=== PATIENT | male | born 1940 | race Caucasian/White ===

== ENCOUNTER 2016-09-27 10:42 | Emergency (ER) | payer OTHER, MEDICARE ==
[~2016-09-27] VITALS: Ht 167.6 cm; Wt 80.0 kg
[~2016-09-27 10:42] MED LIST: ASPI81CH CHEW; ATEN50TA PO; DILA100C PO; NAPR250T57 PO; SOMA250T PO; TEGR100T PO; VITA10003 PO
[2016-09-27 10:44] VITALS: BP 176/88; PULSE 48; RESP 12; TEMP 97.3; O2SAT 100
== END 2016-09-27 13:45 | disposition left against medical advice (07) ==
LOC: NED 10:42
DX: L53.9 Erythematous condition, unspecified (principal); R22.31 Localized swelling, mass and lump, right upper limb; Z98.890 Other specified postprocedural states; Z53.21 Procedure and treatment not carried out due to patient leaving prior to being seen by health care provider
CPT/HCPCS: 99281

== ENCOUNTER 2016-10-31 10:26 | Emergency (ER) | payer MEDICARE, OTHER ==
[~2016-10-31] VITALS: Ht 167.6 cm; Wt 84.0 kg
[2016-10-31 10:33] VITALS: BP 148/75; PULSE 47; RESP 18; TEMP 97.9; O2SAT 99
[2016-10-31 10:54] VITALS: BP 174/78; PULSE 50; RESP 20; O2SAT 99
--- NOTE | 2016-10-31 11:20 | PD ---
HPI Chief Complaint: Edema Time Seen by Provider: 11:00 Travel History International Travel<30 days: No Contact w/Intl Traveler<30days: No Traveled to known affect area: No History of Present Illness HPI Patient is a 76-year-old male who presents to emergency room with complaints of swelling to his left lower extremity. Patient reports that he went to a chiropractor on , reports that he was stretched out as he does have chronic low back pain. Patient reports that he did not have any manipulation to his low back performed. Reports that since , he has noticed increased swelling to his left lower extremity. Patient reports increase left- sided calf pain with radiation to his low back. Patient reports that he has been walking like his normal self, denies any incontinence of urine or stool or bowel. Reports concerns for possible DVT. Patient with no history of DVT or PE in the past. Patient with no complaints of shortness of breath or chest pain. Patient with no recent travels or trips. PFSH Past Medical History Diminished Hearing: Yes Hypertension: Yes Seizures: Yes Influenza Vaccination: No Past Surgical History Abdominal Surgery: Yes (HERNIA) Other Surgery: Yes (MAV) Social History Alcohol Use: Yes (WINE) Tobacco Use: No Substance Use: No Allergies-Medications (Allergen,Severity, Reaction): Coded Allergies: No Known Allergies (Unverified , 10/31/16) Reported Meds & Prescriptions Reported Meds & Active Scripts Active Reported Aspirin 81 Mg Chew 162 Mg CHEW DAILY Vitamin D-3 (Cholecalciferol) 1,000 Unit Tab 1,000 Units PO DAILY Atenolol 50 Mg Tab 40 Mg PO DAILY Tegretol-Xr 12 HR (Carbamazepine) 100 Mg Tab 3.75 Mg PO Q12HR Dilantin (Phenytoin Extended) 100 Mg Cap 100 Mg PO TID Review of Systems General / Constitutional: No: Fever Eyes: No: Visual changes HENT: No: Headaches Cardiovascular: No: Chest Pain or Discomfort Respiratory: No: Shortness of Breath Gastrointestinal: No: Abdominal Pain Genitourinary: No: Dysuria Musculoskeletal: Positive: Edema, Pain (low back pain) Skin: No Rash Neurologic: No: Weakness Psychiatric: No: Depression Endocrine: No: Polydipsia Hematologic/Lymphatic: No: Easy Bruising Physical Exam Narrative GENERAL: No acute distress, nontoxic SKIN: Warm and dry. HEAD: Atraumatic. Normocephalic. EYES: Pupils equal and round. No scleral icterus. No injection or drainage. ENT: No nasal bleeding or discharge. Mucous membranes pink and moist. NECK: Trachea midline. No JVD. CARDIOVASCULAR: Regular rate and rhythm. No murmur appreciated. RESPIRATORY: No accessory muscle use. Clear to auscultation. Breath sounds equal bilaterally. GASTROINTESTINAL: Abdomen soft, non-tender, nondistended. Hepatic and splenic margins not palpable. MUSCULOSKELETAL: No obvious deformities. No clubbing. No cyanosis. Patient with right-sided paraspinal tenderness, patient with left leg +1 edema, patient with left calf tenderness, patient with 30 elevation of left lower extremity. NEUROLOGICAL: Awake and alert. Motor grossly within normal limits. Normal speech. PSYCHIATRIC: Appropriate mood and affect; insight and judgment normal. Data Data Last Documented VS Vital Signs Date Time Temp Pulse Resp B/P Pulse Ox O2 Delivery O2 Flow Rate FiO2 10/31/16 10:54 50 20 174/78 99 Room Air 10/31/16 10:33 97.9 Orders Us Leg Venous Doppler (10/31/16 ) Spine, Lumbar - Ltd (Ap & Lat) (10/31/16 ) Basic Metabolic Panel (Bmp) (10/31/16 11:11) Complete Blood Count With Diff (10/31/16 11:11) Prothrombin Time / Inr (Pt) (10/31/16 11:11) Act Partial Throm Time (Ptt) (10/31/16 11:11) Iv Access Insert/Monitor (10/31/16 11:11) Ketorolac Inj (Toradol Inj) (10/31/16 12:15) Labs Laboratory Tests Test 10/31/16 11:30 White Blood Count 8.6 TH/MM3 Red Blood Count 4.33 MIL/MM3 Hemoglobin 10.6 GM/DL Hematocrit 34.2 % Mean Corpuscular Volume 78.9 FL Mean Corpuscular Hemoglobin 24.5 PG Mean Corpuscular Hemoglobin 31.0 % Concent Red Cell Distribution Width 15.1 % Platelet Count 253 TH/MM3 Mean Platelet Volume 6.8 FL Neutrophils (%) (Auto) 62.8 % Lymphocytes (%) (Auto) 26.6 % Monocytes (%) (Auto) 6.7 % Eosinophils (%) (Auto) 1.9 % Basophils (%) (Auto) 2.0 % Neutrophils # (Auto) 5.3 TH/MM3 Lymphocytes # (Auto) 2.3 TH/MM3 Monocytes # (Auto) 0.6 TH/MM3 Eosinophils # (Auto) 0.2 TH/MM3 Basophils # (Auto) 0.2 TH/MM3 CBC Comment AUTO DIFF Differential Comment AUTO DIFF CONFIRMED Prothrombin Time 11.7 SEC Prothromb Time International 1.1 RATIO Ratio Activated Partial 26.7 SEC Thromboplast Time Sodium Level 142 MEQ/L Potassium Level 5.0 MEQ/L Chloride Level 104 MEQ/L Carbon Dioxide Level 32.1 MEQ/L Anion Gap 6 MEQ/L Blood Urea Nitrogen 15 MG/DL Creatinine 0.72 MG/DL Estimat Glomerular Filtration 106 ML/MIN Rate Random Glucose 91 MG/DL Calcium Level 8.9 MG/DL MDM Medical Decision Making Medical Screen Exam Complete: Yes Emergency Medical Condition: Yes Interpretation(s) Vital Signs Date Time Temp Pulse Resp B/P Pulse Ox O2 Delivery O2 Flow Rate FiO2 10/31/16 10:54 50 20 174/78 99 Room Air 10/31/16 10:47 54 Room Air 10/31/16 10:33 97.9 47 18 148/75 99 Room Air Differential Diagnosis Sciatica, spinal stenosis, lumbar fracture, muscle strain, DVT, electrolyte abnormality Narrative Course Patient is a 76-year-old male who presents to emergency room with complaints of left lower leg swelling as well as right-sided low back pain. Patient reports that his symptoms began after he went to a chiropractor on , no HVLA was performed and only stretching was performed to his low back as he has chronic low pain. Ultrasound of the leg ordered to evaluate for possible DVT. X-ray of the low back ordered CBC & BMP Diagram 10/31/16 11:30 Last Impressions Lower Extremity Ultrasound 10/31/16 0000 Signed Impressions: Service Date/Time: Monday, October 31, 2016 11:44 - CONCLUSION: No evidence of deep venous thrombosis within the left lower extremity. Eitan Wagner MD X-ray of low back shows a grade 1 anterolisthesis of L4 in relation to L5. Degenerative changes throughout the lumbar spine. No acute compression fracture I did review all labs and all studies of patient in detail. Patient with no evidence of DVT at this time, no evidence of lumbar compression, he does have some degenerative changes throughout his lumbar spine. Copies of patient's studies were given to patient. Patient understands need for repeat ultrasound in 1 week if swelling and pain persists to his left lower extremity. Patient will follow-up with his primary care doctor and return to emergency room as needed. Diagnosis Primary Impression: Left leg swelling Additional Impressions: Anemia Qualified Code: D64.9 - Anemia, unspecified type Back pain Qualified Code: M54.41 - Chronic right-sided low back pain with right-sided sciatica Sciatica Qualified Code: M54.31 - Bilateral sciatica Patient Instructions: General Instructions Additional Instructions: Please give patient a copy of his lab work and test results at discharge Please follow up with your primary care doctor in 1-2 days Return to the emergency room if symptoms progress or worsen Please have your lower extremity ultrasound repeated in 1 week if swelling persists Return to the emergency room as needed Disposition: 01 DISCHARGE HOME Condition: Stable Beronica Montenegro DO Oct 31, 2016 11:20 Beronica Montenegro DO Oct 31, 2016 11:20
[2016-10-31 11:41] LABS: AUTOMATED NEUTROPHIL # 5.3 TH/MM3 (1.8-7.7); BASOPHIL # 0.2 TH/MM3 (0-0.2); EOSINOPHIL # 0.2 TH/MM3 (0-0.4); EOSINOPHIL % 1.9 % (0.0-4.0); HEMATOCRIT 34.2 % (39.0-51.0); LYMPH % 26.6 % (9.0-44.0); LYMPHOCYTE # 2.3 TH/MM3 (1.0-4.8); MEAN CELL VOLUME 78.9 FL (80.0-100.0); MEAN CORPUSCULAR HEMOGLOBIN 24.5 PG (27.0-34.0); MONO % 6.7 % (0.0-8.0); NEUT % 62.8 % (16.0-70.0); PLATELET COUNT 253 TH/MM3 (150-450); RED BLOOD COUNT 4.33 MIL/MM3 (4.50-5.90); RED CELL DISTRIBUTION WIDTH 15.1 % (11.6-17.2); WHITE BLOOD COUNT 8.6 TH/MM3 (4.0-11.0)
[2016-10-31 11:42] LABS: HEMO FLAGS AUTO DIFF
[2016-10-31 11:50] LABS: BICARBONATE 32.1 MEQ/L (21.0-32.0)
[2016-10-31 11:52] LABS: APTT (PATIENT) 26.7 SEC (24.3-30.1); INTERNATIONAL NORMALIZED RATIO 1.1 RATIO; PROTHROMBIN TIME - PATIENT 11.7 SEC (9.8-11.6)
--- NOTE | 2016-10-31 11:55 | RADHPO ---
EXAM DATE/TIME: 10/31/2016 11:14 [facility] COMPARISON: No previous studies available for comparison. INDICATIONS: Chronic back pain; left leg swelling and pain today. MEDICAL HISTORY: None. SURGICAL HISTORY: None. ENCOUNTER: Initial ACUITY: 1 year PAIN SCORE: 5/10 LOCATION: Lumbar spine. FINDINGS: Grade I anterolisthesis of L4 in relation to L5 is noted. Mild degenerative changes are noted throug hout the thoracic spine. There is no acute compression fracture. There is no evidence of pars defec ts. CONCLUSION: 1. Grade I anterolisthesis of L4 in relation to L5. 2. Degenerative changes throughout the lumbar spine. 3. No acute compression fracture. Eitan Wagner MD on October 31, 2016 at 11:40 Board Certified Radiologist. This report was verified electronically.
--- NOTE | 2016-10-31 12:01 | RADHPO ---
EXAM DATE/TIME: 10/31/2016 11:44 [facility] COMPARISON: No previous studies available for comparison. INDICATIONS : Left leg swelling. MEDICAL HISTORY : Hypertension. Seizures. SURGICAL HISTORY : Hernia repair. Right arm surgery. Left ankle surgery. ENCOUNTER: Initial ACUITY: 4 - 6 days PAIN SCORE: 9/10 LOCATION: Left leg. TECHNIQUE: Venous ultrasound of the leg was performed from the inguinal ligament to the proximal calf. Real-kb e, color Doppler and spectral tracing, compression and augmentation techniques were used. FINDINGS: There is normal compressibility of the deep venous system from the inguinal region to the proximal ca lf. No echogenic clot is seen in the lumen of the common femoral, femoral, popliteal, and posterior tibial veins. There is a normal response of the venous system to proximal and distal augmentation an d respiration. CONCLUSION: No evidence of deep venous thrombosis within the left lower extremity. Eitan Wagner MD on October 31, 2016 at 11:58 Board Certified Radiologist. This report was verified electronically.
[2016-10-31 12:13] LABS: SCAN/DIFF AUTO DIFF CONFIRMED
[2016-10-31] MEDS ORDERED: KETOROLAC TROMETHAMINE 30 MG/ML (IVP) VIAL IV PUSH ONE (12:15)
[2016-10-31 12:48] VITALS: BP 138/78
== END 2016-10-31 12:49 | disposition home or self-care (01) ==
LOC: PHED 10:26
DX: M79.89 Other specified soft tissue disorders (principal); D64.9 Anemia, unspecified; M54.40 Lumbago with sciatica, unspecified side; I10 Essential (primary) hypertension; G89.29 Other chronic pain
CPT/HCPCS: 72100; 80048; 85025; 85610; 85730; 93971

== ENCOUNTER 2017-05-18 14:21 | Emergency (ER) | payer OTHER ==
[~2017-05-18] VITALS: Ht 165.1 cm; Wt 80.0 kg
[~2017-05-18 14:21] MED LIST changes: -NAPR250T57 PO; -SOMA250T PO
[2017-05-18 14:27] VITALS: BP 166/74; PULSE 63; RESP 16; TEMP 98.6; O2SAT 99
[2017-05-18] MEDS ORDERED: CHOL1CAP6 PO (14:43)
[2017-05-18] MEDS ORDERED: TEGR100T PO (14:43)
--- NOTE | 2017-05-18 15:32 | RADRPT ---
EXAM DATE/TIME: 05/18/2017 15:16 [facility] COMPARISON: No previous studies available for comparison. INDICATIONS : Right foot, first digit pain with swelling. No known injury. MEDICAL HISTORY : Hypertension. Seizures SURGICAL HISTORY : Hernia repair. Right arm surgery. Left ankle surgery ENCOUNTER: Initial ACUITY: 1 day PAIN SCORE: 8/10 LOCATION: Right foot FINDINGS: Joint space narrowing, subchondral sclerosis and prominent osteophyte formation involving the first m etatarsophalangeal joint. No significant erosive change. Remaining joint spaces are maintained. [place] structures are intact. No significant soft tissue abnormality. Consultations of the dorsalis pedis artery. CONCLUSION: 1. 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 No erosive change to suggest infl ammatory arthropathy. Lloyd Kemp MD on May 18, 2017 at 15:28 Board Certified Radiologist. This report was verified electronically.
[2017-05-18] MEDS ORDERED: PRED50 PO (15:55)
[2017-05-18] MEDS ORDERED: INDO50CA PO (15:55)
--- NOTE | 2017-05-18 15:56 | PD ---
HPI . Right foot pain that started this morning Chief Complaint: Pain: Acute or Chronic Time Seen by Provider: 14:57 Travel History International Travel<30 days: No Contact w/Intl Traveler<30days: No Traveled to known affect area: No History of Present Illness HPI 76-year-old male patient presents to the emergency department for evaluation of right pain. Patient woke up this morning and had pain in his foot however it is slightly erythemic and mildly edematous now. Patient denies any fevers, shortness of breath, chest pain, nausea or vomiting, diarrhea, abdominal pain. Patient denies any injury or trauma occurring to the right foot. Patient does have a history of gout. The last episode of gout he had was in his left leg. Patient is ambulatory with a cane. Patient states it is difficult to walk due to the pain. The pain seems to be increasing quickly. Patient has full range of motion in bilateral lower extremities. The erythema in the right foot originates in the great toe and dissipates throughout the top portion of the foot. PFSH Past Medical History Diminished Hearing: Yes Hypertension: Yes Immunizations Current: No Seizures: Yes Tetanus Vaccination: < 5 Years Influenza Vaccination: No Past Surgical History Abdominal Surgery: Yes (HERNIA) Other Surgery: Yes (MAV) Social History Alcohol Use: Yes (WINE) Tobacco Use: No Substance Use: No Allergies-Medications (Allergen,Severity, Reaction): Coded Allergies: No Known Allergies (Unverified , 10/31/16) Reported Meds & Prescriptions Reported Meds & Active Scripts Active Reported Vitamin D-3 (Cholecalciferol) 1,000 Unit Cap 1 Tab PO DAILY Tegretol-Xr 12 HR (Carbamazepine) 100 Mg Tab 100 Mg PO HS Aspirin 81 Mg Chew 162 Mg CHEW DAILY Atenolol 50 Mg Tab 40 Mg PO DAILY Tegretol-Xr 12 HR (Carbamazepine) 100 Mg Tab 200 Mg PO DAILY Dilantin (Phenytoin Extended) 100 Mg Cap 100 Mg PO TID Review of Systems Except as stated in HPI: all other systems reviewed are Neg Physical Exam Narrative GENERAL: Well-nourished, well-developed 76-year-old male patient in no acute distress. Nontoxic appearing SKIN: Slight erythema noted to right great toe that dissipates through the dorsal aspect of the foot. Focused skin assessment warm/dry. HEAD: Normocephalic. Atraumatic EYES: No scleral icterus. No injection or drainage. NECK: Supple, trachea midline. No JVD or lymphadenopathy. CARDIOVASCULAR: Regular rate and rhythm without murmurs, gallops, or rubs. RESPIRATORY: Breath sounds equal bilaterally. No accessory muscle use. GASTROINTESTINAL: Abdomen soft, non-tender, nondistended. MUSCULOSKELETAL: Mild edema to right foot noted. No cyanosis. BACK: Nontender without obvious deformity. No CVA tenderness. Data Data Last Documented VS Vital Signs Date Time Temp Pulse Resp B/P (MAP) Pulse Ox O2 Delivery O2 Flow Rate FiO2 05/18/17 14:36 (104) 05/18/17 14:27 98.6 63 16 99 Room Air Orders Orders Foot, Complete ([id number]) (05/18/17 15:10) Ice/Cold Pack (05/18/17 15:10) [facility] Medical Decision Making Medical Screen Exam Complete: Yes Emergency Medical Condition: Yes Differential Diagnosis Differential diagnoses include but are not limited to osteoarthritis, rheumatoid arthritis, gout, foot contusion, cellulitis Narrative Course 76-year-old male presents to the emergency department for evaluation of right foot pain that started this morning when he woke up. There is erythema noted in the right great toe that dissipates through the dorsal aspect of the foot. The right foot is slightly edematous. Patient is ambulatory with a cane however states today the pain is difficult to ambulate. X-ray of the right foot ordered. X-ray of the right foot shows predominant osteoarthritis of the first metatarsophalangeal joint with no erosive changes to suggest inflammatory arthropathy. Based on patient's symptoms, clinical presentation, radiological results, vital sign review and physical exam it is not necessary to admit the patient to the hospital or keep the patient in the emergency department for further evaluation. Patient will be given a prescription for Indocin and discharged home with instructions to follow-up with his primary care. Diagnosis Primary Impression: Gout of right foot Qualified Codes: M10.9 - Gout, unspecified Referrals: Primary Care Physician Patient Instructions: General Instructions, Gout (ED) Additional Instructions: Please return to emergency department if your symptoms return or worsen. Follow up with your primary care provider. Take medications as prescribed. Med/Other Pt SpecificInfo: Prescription(s) given Scripts Indomethacin (Indomethacin) 50 Mg Cap 50 MG PO TID for 5 Days, CAP 0 Refills Take with food, milk, or antacids to decrease stomach adverse effects. Prov: Gabriela Maya 05/18/17 Disposition: 01 DISCHARGE HOME Condition: Stable Gabriela Maya May 18, 2017 15:56
== END 2017-05-18 16:07 | disposition home or self-care (01) ==
LOC: PHEFT 14:21
DX: M10.9 Gout, unspecified (principal); I10 Essential (primary) hypertension
CPT/HCPCS: 73630; 99283

== ENCOUNTER 2017-11-28 09:57 | Emergency (ER) | payer OTHER ==
[~2017-11-28] VITALS: Ht 167.6 cm; Wt 84.0 kg
[~2017-11-28 09:57] MED LIST changes: +ASPI-516 CHEW; -ASPI81CH CHEW; +D31000CA3 PO; +INDO50CA PO; -VITA10003 PO
[2017-11-28 10:25] VITALS: BP 157/72; PULSE 57; RESP 17; TEMP 98.1; O2SAT 99
[2017-11-28] MEDS ORDERED: SODIUM CHLOR 0.9% 1000 ML INJ 1,000 ML IV ONE (11:15)
[2017-11-28] MEDS ORDERED: CLINDAMYCIN 600 MG/NS PREMIX 50 ML IV ONE (11:15)
[2017-11-28 11:17] LABS: ALBUMIN 3.9 GM/DL (3.4-5.0); AST (GOT) 29 U/L (15-37); BICARBONATE 26.9 MEQ/L (21.0-32.0); BLOOD UREA NITROGEN 12 MG/DL (7-18); CALCIUM 8.9 MG/DL (8.5-10.1); CHLORIDE 102 MEQ/L (98-107); CREATININE 0.87 MG/DL (0.60-1.30); GLOMERULAR FILTRATION RATE 85 ML/MIN (>89); GLUCOSE,RANDOM 107 MG/DL (74-106); SODIUM (NA) 135 MEQ/L (136-145)
[2017-11-28 11:18] LABS: AUTOMATED NEUTROPHIL # 7.8 TH/MM3 (1.8-7.7); BASOPHIL # 0.1 TH/MM3 (0-0.2); BASOPHIL % 0.7 % (0.0-2.0); EOSINOPHIL # 0.1 TH/MM3 (0-0.4); HEMATOCRIT 30.8 % (39.0-51.0); HEMOGLOBIN 8.9 GM/DL (13.0-17.0); LYMPH % 17.6 % (9.0-44.0); LYMPHOCYTE # 1.9 TH/MM3 (1.0-4.8); MEAN CELL VOLUME 62.5 FL (80.0-100.0); MEAN PLATELET VOLUME 8.3 FL (7.0-11.0); MONO % 7.5 % (0.0-8.0); MONOCYTE # 0.8 TH/MM3 (0-0.9); NEUT % 73.2 % (16.0-70.0); PLATELET COUNT 286 TH/MM3 (150-450); RED BLOOD COUNT 4.93 MIL/MM3 (4.50-5.90); RED CELL DISTRIBUTION WIDTH 20.1 % (11.6-17.2); WHITE BLOOD COUNT 10.7 TH/MM3 (4.0-11.0)
[2017-11-28 11:19] LABS: ALT (GPT) 28 U/L (12-78)
--- NOTE | 2017-11-28 11:20 | PD ---
HPI Chief Complaint: Eye Problems/Injury Time Seen by Provider: 11:04 Travel History International Travel<30 days: No Contact w/Intl Traveler<30days: No Traveled to known affect area: No History of Present Illness HPI 77-year-old male presents to the emergency department for evaluation of erythema and swelling to the left eye orbit that started 3 days ago. [facility]. Patient states he feels like he has an abscess forming near the eyebrow. Patient denies any drainage. He currently rates the pain 3/10, without radiation, worse with touching the area, no alleviating factors. He states he originally thought he he had a stye and was doing warm compresses. However, it worsened. He reports history of hypertension. He denies being on anticoagulants. Moderate severity. He denies any pain with EOMs. He denies any visual changes. PFSH Past Medical History Diminished Hearing: Yes Hypertension: Yes Immunizations Current: No Seizures: Yes Past Surgical History Abdominal Surgery: Yes (HERNIA) Other Surgery: Yes (MAV) Social History Alcohol Use: Yes (WINE) Tobacco Use: No Substance Use: No Allergies-Medications (Allergen,Severity, Reaction): Coded Allergies: No Known Allergies (Unverified Allergy, Unknown, 11/28/17) Reported Meds & Prescriptions Reported Meds & Active Scripts Active Reported Vitamin D-3 (Cholecalciferol) 1,000 Unit Cap 1 Tab PO DAILY Tegretol-Xr 12 HR (Carbamazepine) 100 Mg Tab 100 Mg PO HS Aspirin 81 Mg Chew 162 Mg CHEW DAILY Atenolol 50 Mg Tab 40 Mg PO DAILY Tegretol-Xr 12 HR (Carbamazepine) 100 Mg Tab 200 Mg PO DAILY Dilantin (Phenytoin Extended) 100 Mg Cap 100 Mg PO TID Review of Systems Except as stated in HPI: all other systems reviewed are Neg Physical Exam Narrative GENERAL: Well-nourished, well-developed male patient, afebrile. SKIN: Focused skin assessment warm/dry. Patient has erythema and swelling to the left eye orbit. He does have area of induration that comes to a point just below the left eyebrow. HEAD: Normocephalic. EYES: No scleral icterus. No injection or drainage. PERRLA. EOM intact. No pain with EOMs. No photophobia NECK: Supple, trachea midline. No JVD or lymphadenopathy. CARDIOVASCULAR: Regular rate and rhythm without murmurs, gallops, or rubs. RESPIRATORY: Breath sounds equal bilaterally. No accessory muscle use. Lung sounds are clear to auscultation. GASTROINTESTINAL: Abdomen soft, non-tender, nondistended. MUSCULOSKELETAL: No cyanosis, or edema. BACK: Nontender without obvious deformity. No CVA tenderness. Data Data Last Documented VS Vital Signs Date Time Temp Pulse Resp B/P (MAP) Pulse Ox O2 Delivery O2 Flow Rate FiO2 11/28/17 10:25 98.1 57 17 157/72 (100) 99 Orders Orders Complete Blood Count With Diff (11/28/17 10:30) Comprehensive Metabolic Panel (11/28/17 10:30) Lactic Acid Sepsis Protocol (11/28/17 10:30) Ct Facial Bones W Iv Contrast (11/28/17 ) Blood Culture (11/28/17 11:11) Sodium Chlor 0.9% 1000 Ml Inj (Ns 1000 M (11/28/17 11:15) Clindamycin Inj (Cleocin Inj) (11/28/17 12:00) Iohexol 350 Inj (Omnipaque 350 Inj) (11/28/17 13:31) Labs Laboratory Tests Test 11/28/17 10:43 White Blood Count 10.7 TH/MM3 Red Blood Count 4.93 MIL/MM3 Hemoglobin 8.9 GM/DL Hematocrit 30.8 % Mean Corpuscular Volume 62.5 FL Mean Corpuscular Hemoglobin 18.0 PG Mean Corpuscular Hemoglobin Concent 28.8 % Red Cell Distribution Width 20.1 % Platelet Count 286 TH/MM3 Mean Platelet Volume 8.3 FL Neutrophils (%) (Auto) 73.2 % Lymphocytes (%) (Auto) 17.6 % Monocytes (%) (Auto) 7.5 % Eosinophils (%) (Auto) 1.0 % Basophils (%) (Auto) 0.7 % Neutrophils # (Auto) 7.8 TH/MM3 Lymphocytes # (Auto) 1.9 TH/MM3 Monocytes # (Auto) 0.8 TH/MM3 Eosinophils # (Auto) 0.1 TH/MM3 Basophils # (Auto) 0.1 TH/MM3 CBC Comment DIFF FINAL Differential Comment Blood Urea Nitrogen 12 MG/DL Creatinine 0.87 MG/DL Random Glucose 107 MG/DL Total Protein 8.6 GM/DL Albumin 3.9 GM/DL Calcium Level 8.9 MG/DL Alkaline Phosphatase 91 U/L Aspartate Amino Transf (AST/SGOT) 29 U/L Alanine Aminotransferase (ALT/SGPT) 28 U/L Total Bilirubin 0.3 MG/DL Sodium Level 135 MEQ/L Potassium Level 4.7 MEQ/L Chloride Level 102 MEQ/L Carbon Dioxide Level 26.9 MEQ/L Anion Gap 6 MEQ/L Estimat Glomerular Filtration Rate 85 ML/MIN Lactic Acid Level 2.0 mmol/L MDM Medical Decision Making Medical Screen Exam Complete: Yes Emergency Medical Condition: Yes Medical Record Reviewed: Yes Interpretation(s) Last Impressions Maxillofacial CT 11/28/17 0000 Signed Impressions: Service Date/Time: Tuesday, November 28, 2017 13:07 - CONCLUSION: Negative moderate artifact is present. Minimal prominence of the soft tissues left. No significance cellulitis. Retroconal structures are intact. Oziel Akins MD FACR Differential Diagnosis Preseptal cellulitis versus orbital cellulitis versus abscess Narrative Course 77-year-old male presents to the emergency department for evaluation of erythema and swelling to the left eye orbit. There does appear to be an abscess forming just below the eyebrow. IV access is obtained. CBC, CMP, lactic acid, blood cultures 2 were ordered and pending. CT of the facial bones with IV contrast is ordered and pending. Patient is given normal saline 1 L IV bolus, clindamycin 600 mg IV. CBC shows normal WBC of 10.7. He is anemic with hemoglobin 8.9 hematocrit 30.8. CMP shows no acute abnormality. Lactic acid is 2.0. CT of the facial bones with IV contrast shows minimal prominence of the soft tissues of the left , no significant cellulitis, retroconal structures are intact. Patient gave verbal consent for incision and drainage. I was able to obtain some purulent drainage and culture was taken. She'll be discharged prescription for clindamycin. He is return in 2 days for recheck. Procedures Procedure Narrative INCISION AND DRAINAGE OF ABSCESS: The area was prepped and was sterilely draped. A subcutaneous wheal of 1% Xylocaine with a total number 1.5 mL was used to anesthetize the area. The area was properly anesthetized. A number 11 scalpel was used to make a 0.5 -cm incision across the area of the abscess. Cultures were obtained. The abscess was drained an irrigated with normal saline. Sterile dressing applied. Diagnosis Primary Impression: Facial abscess Additional Impression: Preseptal cellulitis of left eye Referrals: Primary Care Physician call for appointment Patient Instructions: Abscess (ED), Cellulitis (ED), General Instructions Additional Instructions: Clean twice daily with soap and water [id number] antibiotic ointment. Warm, moist compresses for 15-20 minutes 4 times daily. Take antibiotic as directed until gone. Return in 2 days for recheck. Follow-up with your primary care physician. Return to the emergency department for any acute worsening of symptoms. Med/Other Pt SpecificInfo: Prescription(s) given Scripts Clindamycin (Clindamycin) 300 Mg Cap 300 MG PO Q6H for Infection for 10 Days, #40 CAP 0 Refills Prov: Stephany Richey 11/28/17 Disposition: 01 DISCHARGE HOME Condition: Stable Stephany Richey Nov 28, 2017 11:20
[2017-11-28 11:21] LABS: ALKALINE PHOSPHATASE 91 U/L (45-117); TOTAL BILIRUBIN ADULT 0.3 MG/DL (0.2-1.0); TOTAL PROTEIN 8.6 GM/DL (6.4-8.2)
[2017-11-28 11:23] LABS: MEAN CORPUSCULAR HGB CONC 28.8 % (32.0-36.0)
[2017-11-28] MEDS ORDERED: CLINDAMYCIN 600 MG/NS 100 ML IV ONE ×2 (12:00)
--- NOTE | 2017-11-28 13:05 | PD ---
Physical Exam Narrative Patient was seen by me and my lab assistant. Data Data Last Documented VS Vital Signs Date Time Temp Pulse Resp B/P (MAP) Pulse Ox O2 Delivery O2 Flow Rate FiO2 11/28/17 10:25 98.1 57 17 157/72 (100) 99 Orders Orders Complete Blood Count With Diff (11/28/17 10:30) Comprehensive Metabolic Panel (11/28/17 10:30) Lactic Acid Sepsis Protocol (11/28/17 10:30) Ct Facial Bones W Iv Contrast (11/28/17 ) Blood Culture (11/28/17 11:11) Sodium Chlor 0.9% 1000 Ml Inj (Ns 1000 M (11/28/17 11:15) Clindamycin Inj (Cleocin Inj) (11/28/17 12:00) Labs Laboratory Tests Test 11/28/17 10:43 White Blood Count 10.7 TH/MM3 Red Blood Count 4.93 MIL/MM3 Hemoglobin 8.9 GM/DL Hematocrit 30.8 % Mean Corpuscular Volume 62.5 FL Mean Corpuscular Hemoglobin 18.0 PG Mean Corpuscular Hemoglobin Concent 28.8 % Red Cell Distribution Width 20.1 % Platelet Count 286 TH/MM3 Mean Platelet Volume 8.3 FL Neutrophils (%) (Auto) 73.2 % Lymphocytes (%) (Auto) 17.6 % Monocytes (%) (Auto) 7.5 % Eosinophils (%) (Auto) 1.0 % Basophils (%) (Auto) 0.7 % Neutrophils # (Auto) 7.8 TH/MM3 Lymphocytes # (Auto) 1.9 TH/MM3 Monocytes # (Auto) 0.8 TH/MM3 Eosinophils # (Auto) 0.1 TH/MM3 Basophils # (Auto) 0.1 TH/MM3 CBC Comment DIFF FINAL Differential Comment Blood Urea Nitrogen 12 MG/DL Creatinine 0.87 MG/DL Random Glucose 107 MG/DL Total Protein 8.6 GM/DL Albumin 3.9 GM/DL Calcium Level 8.9 MG/DL Alkaline Phosphatase 91 U/L Aspartate Amino Transf (AST/SGOT) 29 U/L Alanine Aminotransferase (ALT/SGPT) 28 U/L Total Bilirubin 0.3 MG/DL Sodium Level 135 MEQ/L Potassium Level 4.7 MEQ/L Chloride Level 102 MEQ/L Carbon Dioxide Level 26.9 MEQ/L Anion Gap 6 MEQ/L Estimat Glomerular Filtration Rate 85 ML/MIN Lactic Acid Level 2.0 mmol/L MDM Supervised Visit with [facility]: Yes Mainor Hui MD Nov 28, 2017 13:05
[2017-11-28] MEDS ORDERED: IOHEXOL 350 MG/ML 10 ML VIAL (for RAD DIAG) IVCONTRAST ONE (13:31)
--- NOTE | 2017-11-28 13:35 | RADRPT ---
EXAM DATE/TIME: 11/28/2017 13:07 [place] COMPARISON: No previous studies available for comparison. INDICATIONS : Possible periorbital cellulitis right eye. IV CONTRAST: 65 cc Omnipaque 350 (iohexol) IV RADIATION DOSE: 50.42 CTDIvol (mGy) MEDICAL HISTORY : Seizures. Hypertension. SURGICAL HISTORY : None. ENCOUNTER: Initial ACUITY: 1 day PAIN SCALE: 5/10 LOCATION: Right TECHNIQUE: Volumetric scanning of the facial bones was performed. Using automated exposure control and adjustme nt of the mA and/or kV according to patient size, radiation dose was kept as low as reasonably achiev able to obtain optimal diagnostic quality images. DICOM format image data is available electronicall y for review and comparison. FINDINGS: Patient has a metal plate along along the right inferior orbital rim. There is more soft tissue yvette ration of the left side than the right. I don't see evidence for abscess or retrocrural process in e ither eye. The sinuses are clear. Soft tissues are unremarkable though partially obscured by substantial artifact. CONCLUSION: Negative moderate artifact is present. Minimal prominence of the soft tissues left. No significance cellulitis. Retroconal structures are intact. Oziel Akins MD FACR on November 28, 2017 at 13:30 Board Certified Radiologist. This report was verified electronically.
[2017-11-28] MEDS ORDERED: CLIN300C5 PO (14:14)
== END 2017-11-28 15:14 | disposition home or self-care (01) ==
LOC: NEPC 09:57
DX: L02.01 Cutaneous abscess of face (principal); L03.213 Periorbital cellulitis; I10 Essential (primary) hypertension; B95.62 Methicillin resistant Staphylococcus aureus infection as the cause of diseases classified elsewhere
CPT/HCPCS: 10060; 70487; 80053; 83605; 85025; 86403; 87040; 87070; 87186; 96365; 99284; J7030; Q9967

== ENCOUNTER 2018-05-30 15:52 | Inpatient (IN) ==
--- NOTE | 2018-05-30 19:15 | ED ---
HPI General Chief Complaint: Abdominal Pain Stated Complaint: Stomach Pain Time Seen by Provider: 05/30/18 19:10 Source: patient Mode of arrival: ambulatory Limitations: no limitations History of Present Illness HPI narrative: 78-year-old male presents to the emergency department by private transportation for complaint of abdominal pain. Patient's abdominal pain with constipation times 4 days. Patient was diagnosed 1 month ago by colonoscopy of colon cancer. Patient also has history of hypertension and seizure disorder. Patient today had episode of vomiting stomach contents and increased abdominal discomfort and distention. No prior history of bowel obstruction. Patient did take Dulcolax tablets x2 at 3:30 AM this morning without bowel movement subsequently. Due to ongoing and worsening symptoms presents now for evaluation. 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 Patient has not yet been evaluated by oncologist and has had no procedural intervention regarding his diagnosis of colon cancer. Patient denies any hematemesis coffee-ground emesis feculent emesis melena or hematochezia. MD complaint: Reports abdominal pain (constipation) Onset (ago): day(s) Pain Consistency: constant Location: Reports diffuse Severity: moderate Quality: Reports cramping, fullness and dull Radiation: Reports none Migration to: Reports no migration Relieving factors: nothing Exacerbating factors: nothing Context: Reports recent surgery/procedure (recent colonoscopy); Denies foreign travel, possible food poisoning, sick contacts, recent antibiotic use, recent injury and history of similar episodes Associated symptoms: Reports nausea, vomiting and constipation; Denies diarrhea , fever, chills, dysuria, hematemesis, hematochezia, melena, hematuria, anorexia and syncope Treatments prior to arrival: Denies NSAIDs and prescription analgesics Related Data Home Medications Medication Instructions Recorded Confirmed aspirin 81 mg PO DAILY 05/30/18 05/30/18 phenytoin sodium extended 100 mg PO TID 05/30/18 05/31/18 [Dilantin Extended] atenolol 50 mg PO DAILY 05/31/18 05/31/18 cholecalciferol (vitamin D3) 1,000 unit PO DAILY 05/31/18 05/31/18 [Vitamin D3] clorazepate dipotassium 3.75 mg PO HS 05/31/18 05/31/18 clorazepate dipotassium 7.5 mg PO DAILY 05/31/18 05/31/18 ferrous sulfate [Iron (ferrous 325 mg PO DAILY 05/31/18 05/31/18 sulfate)] fluticasone 50 mcg INTRANASAL TID 05/31/18 05/31/18 ibuprofen [IBU] 600 mg PO TID PRN 05/31/18 05/31/18 loratadine 10 mg PO DAILY 05/31/18 05/31/18 multivitamin 1 tab PO QAM 05/31/18 05/31/18 zonisamide 100 mg PO BID 05/31/18 06/02/18 Allergies Allergy/AdvReac Type Severity Reaction Status Date / Time No Known Allergies Allergy Unknown Uncoded 11/28/17 11:16 Review of Systems ROS: all other systems reviewed are negative PMFSH History History Provided By: Patient (Hypertension seizure colon cancer) Medical History Medical History Colon cancer (Acute) Epilepsy (Acute) Hypertension (Acute) Family History Family History Other Diabetes mellitus Social History Social History Substance History: No History of Abuse Second Hand Smoke Exposure: Yes Smoking Status: Former smoker Tobacco Type: Cigarettes How Often Do You Have a Drink Containing Alcohol: 2 to 4 times a month Recent Travel in [facility] within the Last 8 Weeks: No Recent Out of Country Travel within the Last 8 Weeks: No Exam Narrative Exam Narrative: GENERAL: Well-nourished, well-developed patient. SKIN: Focused skin assessment warm/dry. HEAD: Normocephalic. EYES: No scleral icterus. No injection or drainage. NECK: Supple, trachea midline. No JVD or lymphadenopathy. CARDIOVASCULAR: Regular rate and rhythm without murmurs, gallops, or rubs. RESPIRATORY: Breath sounds equal bilaterally. No accessory muscle use. GASTROINTESTINAL: Abdomen soft, non-tender, nondistended. MUSCULOSKELETAL: No cyanosis, or edema. BACK: Nontender without obvious deformity. No CVA tenderness. Course Initial Documented Vital Signs Temperature 97.9 F 05/30/18 15:58 Pulse Rate 77 05/30/18 15:58 Blood Pressure 133/63 05/30/18 15:58 Pulse Oximetry 99 05/30/18 15:58 Last Documented Vital Signs Temperature 98.7 F 06/04/18 00:00 Pulse Rate 89 06/04/18 00:00 Respiratory Rate 18 06/04/18 01:22 Blood Pressure 136/61 06/04/18 00:00 Pulse Oximetry 94 L 06/04/18 00:00 Medical Decision Making MDM Narrative Medical decision making narrative: 78-year-old male presents with abdominal pain and distention with no bowel movement times 4 days with recent diagnosis of colon cancer by colonoscopy 1 month ago. Patient does use Dulcolax laxative without symptom relief and had vomiting today. No fever or chills. No report of hematemesis coffee-ground emesis melena or hematochezia. IV access obtained specimens collected and sent for resulting. Patient took his own seizure medications for this evening -- brought them to him and he took the medication not aware that he was not to take his own medications -- has the medications home with her.; patient doesn't know the medication dosages. Medical Screen Exam Complete: Yes Emergency Medical Condition: Yes Differential Diagnosis Differential Diagnosis: abdominal pain, ileus, bowel obstruction, constipation, colitis, diverticulitis, UTI Medical Records Medical records reviewed: Yes I reviewed the patient's medical records. Lab Data Lab results reviewed: Yes I reviewed the patient's lab results. Result diagrams: 06/01/18 09:43 06/03/18 05:40 Lab Results 05/30/18 05/30/18 05/31/18 Range/Units 19:20 19:20 04:45 WBC 16.4 H 11.0 (4.0-11.0) th/mm3 RBC 5.22 4.48 L (4.50-5.90) mil/mm3 Hgb 12.1 L 10.4 L (13.0-17.0) gm/dL Hct 38.6 L 33.7 L (39.0-51.0) % MCV 74.0 L 75.2 L (80.0-100.0) fL MCH 23.3 L 23.2 L (27.0-34.0) pg MCHC 31.4 L 30.9 L (32.0-36.0) % RDW 20.3 H 20.2 H (11.6-17.2) % Plt Count 294 238 (150-450) th/mm3 MPV 7.3 7.5 (7.0-11.0) fL Neut % (Auto) 74.6 H 73.3 H (16.0-70.0) % Lymph % (Auto) 17.1 14.9 (9.0-44.0) % [place] % (Auto) 7.6 9.8 H (0.0-8.0) % Eos % (Auto) 0.4 1.5 (0.0-4.0) % Baso % (Auto) 0.3 0.5 (0.0-2.0) % Neut # (Auto) 12.2 H 8.0 H (1.8-7.7) th/mm3 Lymph # (Auto) 2.8 1.6 (1.0-4.8) th/mm3 [place] # (Auto) 1.2 H 1.1 H (0.0-0.9) th/mm3 Eos # (Auto) 0.1 0.2 (0.0-0.4) th/mm3 Baso # (Auto) 0.0 0.1 (0.0-0.2) th/mm3 WBC Differential . . Differential Comment Auto diff final Auto diff final Sodium 139 (136-145) meq/L Potassium 4.2 (3.5-5.1) meq/L Chloride 106 (98-107) meq/L Carbon Dioxide 25.7 (21.0-32.0) meq/L Anion Gap 7 (5-15) meq/L BUN 18 (7-18) mg/dL Creatinine 1.03 (0.60-1.30) mg/dL Estimated GFR 70 L (>89) mL/min Random Glucose 113 H (74-106) mg/dL Calcium 9.0 (8.5-10.1) mg/dL Phosphorus (2.5-4.9) mg/dL Magnesium 2.1 (1.5-2.5) mg/dL Total Bilirubin 0.4 (0.2-1.0) mg/dL AST 19 (15-37) U/L ALT 22 (12-78) U/L Alkaline Phosphatase 113 (45-117) U/L Total Protein 8.6 H (6.4-8.2) g/dL Albumin 4.0 (3.4-5.0) g/dL Lipase 120 (73-393) U/L Urine Color (Yellw/Straw) Urine Clarity (Clear) Urine pH (5.0-8.5) Ur Specific [place] (1.002-1.035) Urine Protein (Neg-Trace) mg/dL Urine Glucose (UA) (Negative) mg/dL Urine Ketones (Negative) mg/dL Urine Occult Blood (Negative) Urine Nitrate (Negative) Urine Bilirubin (Negative) Urine Urobilinogen (Less than 2) mg/dL Ur Leukocyte Esterase (Negative) Urine RBC (0-3) /hpf Urine WBC (0-5) /hpf Ur Squamous Epith Cells (0-5) /hpf Micro UA Comment Ur Microscopic Review Urine Culture Comments Blood Type Blood Type Recheck Antibody Screen MTS Gel Crossmatch 05/31/18 05/31/18 06/01/18 Range/Units 04:45 06:35 09:43 WBC 9.5 (4.0-11.0) th/mm3 RBC 4.51 (4.50-5.90) mil/mm3 Hgb 10.4 L (13.0-17.0) gm/dL Hct 34.9 L (39.0-51.0) % MCV 77.6 L (80.0-100.0) fL MCH 23.1 L (27.0-34.0) pg MCHC 29.8 L (32.0-36.0) % RDW 19.7 H (11.6-17.2) % Plt Count 216 (150-450) th/mm3 MPV 7.4 (7.0-11.0) fL Neut % (Auto) (16.0-70.0) % Lymph % (Auto) (9.0-44.0) % [place] % (Auto) (0.0-8.0) % Eos % (Auto) (0.0-4.0) % Baso % (Auto) (0.0-2.0) % Neut # (Auto) (1.8-7.7) th/mm3 Lymph # (Auto) (1.0-4.8) th/mm3 [place] # (Auto) (0.0-0.9) th/mm3 Eos # (Auto) (0.0-0.4) th/mm3 Baso # (Auto) (0.0-0.2) th/mm3 WBC Differential Differential Comment Sodium 142 (136-145) meq/L Potassium 4.3 (3.5-5.1) meq/L Chloride 109 H (98-107) meq/L Carbon Dioxide 26.7 (21.0-32.0) meq/L Anion Gap 6 (5-15) meq/L BUN 19 H (7-18) mg/dL Creatinine 1.04 (0.60-1.30) mg/dL Estimated GFR 69 L (>89) mL/min Random Glucose 113 H (74-106) mg/dL Calcium 8.0 L D (8.5-10.1) mg/dL Phosphorus (2.5-4.9) mg/dL Magnesium (1.5-2.5) mg/dL Total Bilirubin (0.2-1.0) mg/dL AST (15-37) U/L ALT (12-78) U/L Alkaline Phosphatase (45-117) U/L Total Protein (6.4-8.2) g/dL Albumin (3.4-5.0) g/dL Lipase (73-393) U/L Urine Color Yellow (Yellw/Straw) Urine Clarity Clear (Clear) Urine pH 5.0 (5.0-8.5) Ur Specific [place] Greater than 1.060 H (1.002-1.035) Urine Protein Negative (Neg-Trace) mg/dL Urine Glucose (UA) Negative (Negative) mg/dL Urine Ketones Negative (Negative) mg/dL Urine Occult Blood Negative (Negative) Urine Nitrate Negative (Negative) Urine Bilirubin Negative (Negative) Urine Urobilinogen Less than 2 (Less than 2) mg/dL Ur Leukocyte Esterase Negative (Negative) Urine RBC 2 (0-3) /hpf Urine WBC 1 (0-5) /hpf Ur Squamous Epith Cells <1 (0-5) /hpf Micro UA Comment Culture not ind Ur Microscopic Review Not Reportable Urine Culture Comments Culture not ind Blood Type Blood Type Recheck Antibody Screen MTS Gel Crossmatch 06/01/18 06/03/18 06/03/18 Range/Units 09:48 05:40 12:23 WBC (4.0-11.0) th/mm3 RBC (4.50-5.90) mil/mm3 Hgb (13.0-17.0) gm/dL Hct (39.0-51.0) % MCV (80.0-100.0) fL MCH (27.0-34.0) pg MCHC (32.0-36.0) % RDW (11.6-17.2) % Plt Count (150-450) th/mm3 MPV (7.0-11.0) fL Neut % (Auto) (16.0-70.0) % Lymph % (Auto) (9.0-44.0) % [place] % (Auto) (0.0-8.0) % Eos % (Auto) (0.0-4.0) % Baso % (Auto) (0.0-2.0) % Neut # (Auto) (1.8-7.7) th/mm3 Lymph # (Auto) (1.0-4.8) th/mm3 [place] # (Auto) (0.0-0.9) th/mm3 Eos # (Auto) (0.0-0.4) th/mm3 Baso # (Auto) (0.0-0.2) th/mm3 WBC Differential Differential Comment Sodium 142 144 (136-145) meq/L Potassium 4.0 3.9 (3.5-5.1) meq/L Chloride 111 H 113 H (98-107) meq/L Carbon Dioxide 21.9 16.9 L (21.0-32.0) meq/L Anion Gap 9 14 (5-15) meq/L BUN 17 10 (7-18) mg/dL Creatinine 0.73 0.85 (0.60-1.30) mg/dL Estimated GFR Greater than 89 87 L (>89) mL/min Random Glucose 65 L 95 (74-106) mg/dL Calcium 8.0 L 8.0 L (8.5-10.1) mg/dL Phosphorus 2.0 L (2.5-4.9) mg/dL Magnesium 1.7 (1.5-2.5) mg/dL Total Bilirubin 0.3 (0.2-1.0) mg/dL AST 18 (15-37) U/L ALT 15 (12-78) U/L Alkaline Phosphatase 68 (45-117) U/L Total Protein 6.8 D (6.4-8.2) g/dL Albumin 3.1 L (3.4-5.0) g/dL Lipase (73-393) U/L Urine Color (Yellw/Straw) Urine Clarity (Clear) Urine pH (5.0-8.5) Ur Specific [place] (1.002-1.035) Urine Protein (Neg-Trace) mg/dL Urine Glucose (UA) (Negative) mg/dL Urine Ketones (Negative) mg/dL Urine Occult Blood (Negative) Urine Nitrate (Negative) Urine Bilirubin (Negative) Urine Urobilinogen (Less than 2) mg/dL Ur Leukocyte Esterase (Negative) Urine RBC (0-3) /hpf Urine WBC (0-5) /hpf Ur Squamous Epith Cells (0-5) /hpf Micro UA Comment Ur Microscopic Review Urine Culture Comments Blood Type O Positive Blood Type Recheck Required Antibody Screen Negative MTS Gel Crossmatch 06/03/18 Range/Units 12:23 WBC (4.0-11.0) th/mm3 RBC (4.50-5.90) mil/mm3 Hgb (13.0-17.0) gm/dL Hct (39.0-51.0) % MCV (80.0-100.0) fL MCH (27.0-34.0) pg MCHC (32.0-36.0) % RDW (11.6-17.2) % Plt Count (150-450) th/mm3 MPV (7.0-11.0) fL Neut % (Auto) (16.0-70.0) % Lymph % (Auto) (9.0-44.0) % [place] % (Auto) (0.0-8.0) % Eos % (Auto) (0.0-4.0) % Baso % (Auto) (0.0-2.0) % Neut # (Auto) (1.8-7.7) th/mm3 Lymph # (Auto) (1.0-4.8) th/mm3 [place] # (Auto) (0.0-0.9) th/mm3 Eos # (Auto) (0.0-0.4) th/mm3 Baso # (Auto) (0.0-0.2) th/mm3 WBC Differential Differential Comment Sodium (136-145) meq/L Potassium (3.5-5.1) meq/L Chloride (98-107) meq/L Carbon Dioxide (21.0-32.0) meq/L Anion Gap (5-15) meq/L BUN (7-18) mg/dL Creatinine (0.60-1.30) mg/dL Estimated GFR (>89) mL/min Random Glucose (74-106) mg/dL Calcium (8.5-10.1) mg/dL Phosphorus (2.5-4.9) mg/dL Magnesium (1.5-2.5) mg/dL Total Bilirubin (0.2-1.0) mg/dL AST (15-37) U/L ALT (12-78) U/L Alkaline Phosphatase (45-117) U/L Total Protein (6.4-8.2) g/dL Albumin (3.4-5.0) g/dL Lipase (73-393) U/L Urine Color (Yellw/Straw) Urine Clarity (Clear) Urine pH (5.0-8.5) Ur Specific [place] (1.002-1.035) Urine Protein (Neg-Trace) mg/dL Urine Glucose (UA) (Negative) mg/dL Urine Ketones (Negative) mg/dL Urine Occult Blood (Negative) Urine Nitrate (Negative) Urine Bilirubin (Negative) Urine Urobilinogen (Less than 2) mg/dL Ur Leukocyte Esterase (Negative) Urine RBC (0-3) /hpf Urine WBC (0-5) /hpf Ur Squamous Epith Cells (0-5) /hpf Micro UA Comment Ur Microscopic Review Urine Culture Comments Blood Type Blood Type Recheck Antibody Screen MTS Gel Crossmatch See Detail Imaging Data Radiologist's impression: Abdomen/Pelvis CT 05/30/18 19:10 CONCLUSION: 1. Multiple loops of thickened small bowel in the mid and distal portion most characteristic of an enteritis. Mild dilatation of proximal small bowel likely from associated ileus. There is gas within the partially decompressed colon. 2. Nonobstructing small lower pole left renal calculus. Calcified gallstone. Mild fatty liver. Abdomen X-Ray 06/02/18 00:00 CONCLUSION: Diffuse gaseous distention of small bowel. There is some gas in the colon. Differential diagnosis includes ileus or low-grade obstruction. Abdomen X-Ray 06/03/18 00:00 CONCLUSION: 1. Bowel gas pattern is consistent with persistent small bowel obstruction versus severe adynamic ileus. Discharge Plan Discharge Disposition Patient Disposition: 30 Still Patient Discharge Condition Condition: Stable Discharge Details Diagnosis: Small bowel obstruction, Abdominal pain, Colon cancer Physicians Team ED Provider: Iris Irene Primary Care Provider: [facility] Attending Provider: Oziel Beckman Other Providers: Benito Sylvester Discharge Interventions Interventions: ED Discharge Assessment Last Done: 05/31/18 08:12 Vital Signs Last Done: 05/30/18 19:27 Status ED Status: Left Department Discharge Information Discharge Date/Time: 05/31/18 08:00
[2018-05-30 19:35] LABS: Baso % (Auto) 0.3 % (0.0-2.0); Eos # (Auto) 0.1 th/mm3 (0.0-0.4); Eos % (Auto) 0.4 % (0.0-4.0); Hematocrit 38.6 % (39.0-51.0); Hemoglobin 12.1 gm/dL (13.0-17.0); Lymph # (Auto) 2.8 th/mm3 (1.0-4.8); Lymph % (Auto) 17.1 % (9.0-44.0); Mean Corpuscular HGB Conc 31.4 % (32.0-36.0); Mean Corpuscular Hemoglobin 23.3 pg (27.0-34.0); Mean Platelet Volume 7.3 fL (7.0-11.0); Mono # (Auto) 1.2 th/mm3 (0.0-0.9); Mono % (Auto) 7.6 % (0.0-8.0); Neut # (Auto) 12.2 th/mm3 (1.8-7.7); Neut % (Auto) 74.6 % (16.0-70.0); Platelet Count 294 th/mm3 (150-450); Red Blood Count 5.22 mil/mm3 (4.50-5.90); Red Cell Distribution Width 20.3 % (11.6-17.2); White Blood Count 16.4 th/mm3 (4.0-11.0)
[2018-05-30] MEDS ORDERED: Morphine Sulfate Inj 2 MG/ML Vial IV.PUSH ONE (19:42)
[2018-05-30 20:01] LABS: Anion Gap 7 meq/L (5-15); Aspartate Aminotransferase 19 U/L (15-37); Blood Urea Nitrogen 18 mg/dL (7-18); Carbon Dioxide 25.7 meq/L (21.0-32.0); Chloride 106 meq/L (98-107); Glomerular Filtration Rate 70 mL/min (>89); Glucose,Random 113 mg/dL (74-106); Lipase 120 U/L (73-393); Magnesium 2.1 mg/dL (1.5-2.5); Potassium 4.2 meq/L (3.5-5.1); Sodium 139 meq/L (136-145)
[2018-05-30 20:04] LABS: Alanine Aminotransferase 22 U/L (12-78); Alkaline Phosphatase 113 U/L (45-117); Total Protein 8.6 g/dL (6.4-8.2)
--- NOTE | 2018-05-30 20:41 | CT ---
EXAM DATE: 05/30/2018 8:08 PM EDT AGE/SEX: 78 years / Male INDICATIONS: Abdominal pain, Nausea, vomiting, and constipation. CLINICAL DATA: This is the patient's initial encounter. Patient reports that signs and symptoms have been present for 1 day and indicates a pain score of 5/10. MEDICAL/SURGICAL HISTORY: Carcinoma, colon. None. ORAL CONTRAST: No oral contrast ingested. RADIATION DOSE: 8.04 CTDI (mGy) COMPARISON: No prior exams available for comparison. TECHNIQUE: Multiple contiguous axial images were obtained through the abdomen and pelvis following b olus infusion of 90 ml Omnipaque 350 (iohexol) nonionic water-soluble contrast as a single exam dos e. No oral contrast ingested. Using automated exposure control and adjustment of the mA and/or kV ac cording to patient size, radiation dose was kept as low as reasonably achievable to obtain optimal di agnostic quality images. DICOM format image data is available electronically for review and comparis on. FINDINGS: Lung bases are clear. Mild fatty liver. Spleen, adrenals, right kidney and pancreas unremarkable. Nonobstructing 3 mm calcu low lower pole left kidney. Calcified gallstone noted in the gallbladder. There are multiple thickened loops of small bowel predominantly in the mid and distal portion with mi ld dilatation of proximal small bowel after 3.4 cm in diameter. Colon is relatively decompressed. CONCLUSION: 1. Multiple loops of thickened small bowel in the mid and distal portion most characteristic of an e nteritis. Mild dilatation of proximal small bowel likely from associated ileus. There is gas within t he partially decompressed colon. 2. Nonobstructing small lower pole left renal calculus. Calcified gallstone. Mild fatty liver. Electronically signed by: Jose Saravia MD 05/30/2018 8:40 PM EDT
[2018-05-30] MEDS: Sod Chloride 0.9% Inj 1,000 ML IV.CONT SCH (20:50)
[2018-05-30] MEDS ORDERED: Piperacil/Tazo 4.5 GM Premix 4.5 GM/100 ML BAG IV.SIG ONE (20:51)
[2018-05-30] MEDS ORDERED: Sodium Chlor 0.9% Inj 500 ML IV.SIG SCH (21:00)
[2018-05-30] MEDS ORDERED: Morphine Inj 4 MG/ML Vial IV.PUSH PRN (23:21)
[2018-05-30] MEDS ORDERED: hydrALAZINE HCl Inj 20 MG/ML Vial IV.PUSH ONE (23:23)
--- NOTE | 2018-05-30 23:28 | P.HP ---
History of Present Illness Service: [facility] Primary Care Physician: [facility] History of Present Illness: 78-year-old male with a past medical history significant for newly diagnosed colon cancer, seizure disorder and hypertension presents to the emergency department with a 4-day history of constipation with abdominal pain and bloating. The patient reports at 3 AM this morning he had severe abdominal pain and bloating. He took a Dulcolax which worsened his symptoms. He then reports multiple episodes of nonbloody nonbilious emesis that have continued throughout the day. He denies any chest pain or shortness of breath. No fever/ chills. No lateralizing signs/symptoms. Review of Systems All other systems reviewed negative except as stated in HPI PMFSH - History History Provided By: Patient (Hypertension seizure colon cancer) - Medical History Medical History: Medical History (Last Reviewed 05/30/18 @ 23:22 by Beronica Boyd MD) Colon cancer Epilepsy Hypertension - Surgical History Surgical History: Surgical History (Last Updated 05/30/18 @ 23:23 by Beronica Boyd MD) History of ankle surgery - Family History Family History: Family History (Last Updated 05/30/18 @ 23:23 by Beronica Boyd MD) Other Diabetes mellitus - Tobacco History Smoking Status: Never smoker - Alcohol History How Often Do You Have a Drink Containing Alcohol: Never - Substance Use History Substance History: No History of Abuse - Travel History Recent Travel in the [place] Within the Last 8 Weeks: No Recent Travel Out of the Country Within the Last 8 Weeks: No - Immunization History Tetanus Immunization: >5 Years Medications and Allergies Active Medications: Active Medications Bisacodyl (Dulcolax Supp) 10 mg RECTAL DAILY PRN PRN Reason: SEVERE CONSITIPATION Sodium Chloride (Ns Inj) 1,000 mls @ 100 mls/hr IV.CONT .Q10H MATHEW Last Admin: 05/30/18 20:50 Dose: 100 mls/hr Sodium Chloride (Ns Inj) 500 mls @ 0 mls/hr IV.SIG BOLUS MATHEW Last Admin: 05/30/18 21:32 Dose: 500 mls/hr Ondansetron HCl (Zofran Inj) 4 mg IV.PUSH Q6H PRN PRN Reason: NAUSEA OR VOMITING Sodium Chloride (Ns Flush) 2 ml IV.FLUSH PRN PRN PRN Reason: FLUSH AFTER USING IV ACCESS Allergies Allergy/AdvReac Type Severity Reaction Status Date / Time No Known Allergies Allergy Unknown Uncoded 11/28/17 11:16 Home Medications Medication Instructions Recorded Confirmed Type aspirin 81 mg PO DAILY 05/30/18 05/30/18 History iron 05/30/18 History phenytoin sodium extended 05/30/18 History [Dilantin Extended] Exam Vital signs: Vital Signs 05/30/18 15:58 05/30/18 19:27 Temperature 97.9 F Pulse Rate 77 65 Respiratory Rate 18 Blood Pressure 133/63 198/75 H Pulse Oximetry 99 98 Intake & Output 05/30/18 05/30/18 05/31/18 06:59 18:59 06:59 Weight 77.111 kg Narrative: Gen.: No acute distress Head: Normocephalic. Atraumatic. EENT: Pupils equal round and reactive to light. Nose without drainage. Airway intact. Throat without injection. Cardiovascular: Regular rate and rhythm. No murmurs, rubs or gallops. Respiratory: Lungs clear to auscultation bilaterally. No wheezes or rhonchi. Abdomen: Distended. Nontender to palpation. No peritoneal signs. Hypoactive bowel sounds. Musculoskeletal: No gross deformities. No edema. Skin: No obvious rashes or erythema. Neuro: Sensory and motor grossly intact. Cranial nerves II through XII grossly intact. Results - Labs CBC & Chem 7: 05/30/18 19:20 05/30/18 19:20 Labs: Laboratory Results - last 24 hr 05/30/18 05/30/18 19:20 19:20 WBC 16.4 H RBC 5.22 Hgb 12.1 L Hct 38.6 L MCV 74.0 L MCH 23.3 L MCHC 31.4 L RDW 20.3 H Plt Count 294 MPV 7.3 Neut % (Auto) 74.6 H Lymph % (Auto) 17.1 [place] % (Auto) 7.6 Eos % (Auto) 0.4 Baso % (Auto) 0.3 Neut # (Auto) 12.2 H Lymph # (Auto) 2.8 [place] # (Auto) 1.2 H Eos # (Auto) 0.1 Baso # (Auto) 0.0 WBC Differential . Differential Comment Auto diff final Sodium 139 Potassium 4.2 Chloride 106 Carbon Dioxide 25.7 Anion Gap 7 BUN 18 Creatinine 1.03 Estimated GFR 70 L Random Glucose 113 H Calcium 9.0 Magnesium 2.1 Total Bilirubin 0.4 AST 19 ALT 22 Alkaline Phosphatase 113 Total Protein 8.6 H Albumin 4.0 Lipase 120 - Imaging Impressions Abdomen/Pelvis CT 05/30/18 19:10 CONCLUSION: 1. Multiple loops of thickened small bowel in the mid and distal portion most characteristic of an enteritis. Mild dilatation of proximal small bowel likely from associated ileus. There is gas within the partially decompressed colon. 2. Nonobstructing small lower pole left renal calculus. Calcified gallstone. Mild fatty liver. Caprini VTE Risk Assessment Caprini VTE Risk Assessment: Moderate/High Risk (score >= 2) Caprini Risk Assessment Model: Point Value = 1 Point Value = 2 Point Value = 3 Point Value = 5 Age 41-60 Minor surgery BMI > 25 kg/m2 Swollen legs Varicose veins or History of unexplained or recurrent spontaneous Oral contraceptives or hormone replacement Sepsis (< 1 month) Serious lung disease, including pneumonia (< 1 month) Abnormal pulmonary function Acute myocardial infarction Congestive heart failure (< 1 month) History of inflammatory bowel disease Medical patient at bed rest Age 61-74 Arthroscopic surgery Major open surgery (> 45 min) Laparoscopic surgery (> 45 min) Malignancy Confined to bed (> 72 hours) Immobilizing plaster cast Central venous access Age >= 75 History of VTE Family history of VTE Factor V Leiden Prothrombin [id number] Lupus anticoagulant Anticardiolipin antibodies Elevated serum homocysteine Heparin-induced thrombocytopenia Other congenital or acquired thrombophilia Stroke (< 1 month) Elective arthroplasty Hip, pelvis, or leg fracture Acute spinal cord injury (< 1 month) Prophylaxis Regimen: Total Risk Factor Score Risk Level Prophylaxis Regimen 0-1 Low Early ambulation 2 Moderate Order ONE of the following: *Sequential Compression Device (SCD) *Heparin 5000 units SQ BID 3-4 Higher Order ONE of the following medications: *Heparin 5000 units SQ TID *Enoxaparin/Lovenox 40 mg SQ daily (WT < 150 kg, CrCl > 30 mL/min) *Enoxaparin/Lovenox 30 mg SQ daily (WT < 150 kg, CrCl > 10-29 mL/min) *Enoxaparin/Lovenox 30 mg SQ BID (WT < 150 kg, CrCl > 30 mL/min) AND/OR *Sequential Compression Device (SCD) 5 or more Highest Order ONE of the following medications: *Heparin 5000 units SQ TID (Preferred with Epidurals) *Enoxaparin/Lovenox 40 mg SQ daily (WT < 150 kg, CrCl > 30 mL/min) *Enoxaparin/Lovenox 30 mg SQ daily (WT < 150 kg, CrCl > 10-29 mL/min) *Enoxaparin/Lovenox 30 mg SQ BID (WT < 150 kg, CrCl > 30 mL/min) AND *Sequential Compression Device (SCD) Assessment and Plan - Plan Assessment/plan: 1. Ileus CT of the abdomen/pelvis significant for multiple loops of thickened small bowel most characteristic of enteritis with proximal small bowel dilation from an associated ileus N.p.o. General surgery consulted, appreciate assistance 2. Colon cancer Patient diagnosed approximately 1 month ago at the [facility] Has additional testing for metastatic disease scheduled for Sunday Continue outpatient follow-up 3. Hypertension Continue home medications once reconciled Hydralazine x1 now for BP of 198/75 4. Seizure disorder Continue home Dilantin once medication reconciliation completed FEN N.p.o. NS at 100 cc/hour Electrolytes: Monitor and replete as needed Holding pharmacologic anticoagulation until cleared by general surgery
[2018-05-30] MEDS ORDERED: Sod Chloride 0.9% Inj 1,000 ML IV.SIG SCH (23:45)
[2018-05-31 06:05] LABS: Baso # (Auto) 0.1 th/mm3 (0.0-0.2); Baso % (Auto) 0.5 % (0.0-2.0); Eos # (Auto) 0.2 th/mm3 (0.0-0.4); Eos % (Auto) 1.5 % (0.0-4.0); Hematocrit 33.7 % (39.0-51.0); Hemoglobin 10.4 gm/dL (13.0-17.0); Lymph # (Auto) 1.6 th/mm3 (1.0-4.8); Lymph % (Auto) 14.9 % (9.0-44.0); Mean Corpuscular Hemoglobin 23.2 pg (27.0-34.0); Mean Corpuscular Volume 75.2 fL (80.0-100.0); Mean Platelet Volume 7.5 fL (7.0-11.0); Mono # (Auto) 1.1 th/mm3 (0.0-0.9); Mono % (Auto) 9.8 % (0.0-8.0); Neut % (Auto) 73.3 % (16.0-70.0); Platelet Count 238 th/mm3 (150-450); Red Blood Count 4.48 mil/mm3 (4.50-5.90); Red Cell Distribution Width 20.2 % (11.6-17.2)
[2018-05-31 06:07] LABS: Mean Corpuscular HGB Conc 30.9 % (32.0-36.0)
[2018-05-31 06:30] LABS: Carbon Dioxide 26.7 meq/L (21.0-32.0); Potassium 4.3 meq/L (3.5-5.1)
[2018-05-31 06:55] LABS: Bilirubin,Urine Negative (Negative); Clarity,Urine Clear (Clear); Color,Urine Yellow (Yellw/Straw); Glucose,Urine (UA) Negative (Negative); Leukocyte Esterase,Urine Negative (Negative); Nitrite,Urine Negative (Negative); Squamous Epithelial Cell,Urine <1 /hpf (0-5)
--- NOTE | 2018-05-31 11:34 | P.PN ---
Subjective Interval history: Follow-up for abdominal pain, ileus versus small bowel obstruction, recent diagnosis of colon cancer-patient seen and examined, complains of right abdomen pain, no BM times a week. No nausea and no vomiting since yesterday. No chest pain, no shortness of breath. No fever overnight. Family at bedside. Spoke to Dr. Sylvester this morning, possible surgery next week. Physical Exam Vital signs: Vital Signs 05/30/18 15:58 05/30/18 19:27 05/30/18 23:31 Temperature 97.9 F Pulse Rate 77 65 Respiratory Rate 18 18 Blood Pressure 133/63 198/75 H 118/63 Pulse Oximetry 99 98 97 05/31/18 02:38 05/31/18 04:51 05/31/18 08:00 Temperature 97.7 F Pulse Rate 79 65 Respiratory Rate 20 19 15 Blood Pressure 134/64 122/61 Pulse Oximetry 97 98 Intake & Output 05/30/18 05/31/18 05/31/18 18:59 06:59 18:59 Intake Total 600 / 600 Balance 600 / 600 Weight 77.111 kg Intake: IV 600 / 600 NS Inj 500 ML @ Wide Open IV. 500 / 500 SIG BOLUS [facility] Rx#:[id number] Narrative: Gen.: 78-year-old well-developed well-nourished male no acute distress Head: Normocephalic. Atraumatic. EENT: Pupils equal round and reactive to light. Nose without drainage. Airway intact. Throat without injection. Cardiovascular: Regular rate and rhythm. No murmurs, rubs or gallops. Respiratory: Lungs clear to auscultation bilaterally. No wheezes or rhonchi. Abdomen: Distended. Tender to palpation to right upper and right lower quadrant. No peritoneal signs. Hypoactive bowel sounds. Musculoskeletal: No gross deformities. No edema. Skin: No obvious rashes or erythema. Neuro: Awake, alert oriented x3. No focal deficits. Results - Labs CBC & Chem 7: 05/31/18 04:45 05/31/18 04:45 Laboratory Results - last 24 hr 05/30/18 05/30/18 05/31/18 19:20 19:20 04:45 WBC 16.4 H 11.0 RBC 5.22 4.48 L Hgb 12.1 L 10.4 L Hct 38.6 L 33.7 L MCV 74.0 L 75.2 L MCH 23.3 L 23.2 L MCHC 31.4 L 30.9 L RDW 20.3 H 20.2 H Plt Count 294 238 MPV 7.3 7.5 Neut % (Auto) 74.6 H 73.3 H Lymph % (Auto) 17.1 14.9 [place] % (Auto) 7.6 9.8 H Eos % (Auto) 0.4 1.5 Baso % (Auto) 0.3 0.5 Neut # (Auto) 12.2 H 8.0 H Lymph # (Auto) 2.8 1.6 [place] # (Auto) 1.2 H 1.1 H Eos # (Auto) 0.1 0.2 Baso # (Auto) 0.0 0.1 WBC Differential . . Differential Comment Auto diff final Auto diff final Sodium 139 Potassium 4.2 Chloride 106 Carbon Dioxide 25.7 Anion Gap 7 BUN 18 Creatinine 1.03 Estimated GFR 70 L Random Glucose 113 H Calcium 9.0 Magnesium 2.1 Total Bilirubin 0.4 AST 19 ALT 22 Alkaline Phosphatase 113 Total Protein 8.6 H Albumin 4.0 Lipase 120 Urine Color Urine Clarity Urine pH Ur Specific [place] Urine Protein Urine Glucose (UA) Urine Ketones Urine Occult Blood Urine Nitrate Urine Bilirubin Urine Urobilinogen Ur Leukocyte Esterase Urine RBC Urine WBC Ur Squamous Epith Cells Micro UA Comment Ur Microscopic Review Urine Culture Comments 05/31/18 05/31/18 04:45 06:35 WBC RBC Hgb Hct MCV MCH MCHC RDW Plt Count MPV Neut % (Auto) Lymph % (Auto) [place] % (Auto) Eos % (Auto) Baso % (Auto) Neut # (Auto) Lymph # (Auto) [place] # (Auto) Eos # (Auto) Baso # (Auto) WBC Differential Differential Comment Sodium 142 Potassium 4.3 Chloride 109 H Carbon Dioxide 26.7 Anion Gap 6 BUN 19 H Creatinine 1.04 Estimated GFR 69 L Random Glucose 113 H Calcium 8.0 L D Magnesium Total Bilirubin AST ALT Alkaline Phosphatase Total Protein Albumin Lipase Urine Color Yellow Urine Clarity Clear Urine pH 5.0 Ur Specific [place] Greater than 1.060 H Urine Protein Negative Urine Glucose (UA) Negative Urine Ketones Negative Urine Occult Blood Negative Urine Nitrate Negative Urine Bilirubin Negative Urine Urobilinogen Less than 2 Ur Leukocyte Esterase Negative Urine RBC 2 Urine WBC 1 Ur Squamous Epith Cells <1 Micro UA Comment Culture not ind Ur Microscopic Review Not Reportable Urine Culture Comments Culture not ind - Imaging Impressions Abdomen/Pelvis CT 05/30/18 19:10 CONCLUSION: 1. Multiple loops of thickened small bowel in the mid and distal portion most characteristic of an enteritis. Mild dilatation of proximal small bowel likely from associated ileus. There is gas within the partially decompressed colon. 2. Nonobstructing small lower pole left renal calculus. Calcified gallstone. Mild fatty liver. Assessment and Plan - Assessment (1) Abdominal pain Code(s): R10.9 - Unspecified abdominal pain Status: Acute (2) Colon cancer Code(s): C18.9 - Malignant neoplasm of colon, unspecified Status: Acute (3) Seizure disorder Code(s): G40.909 - Epilepsy, unspecified, not intractable, without status epilepticus Status: Chronic (4) HTN (hypertension) Code(s): I10 - Essential (primary) hypertension Status: Chronic - Plan Assessment/Plan 78-year-old male with a past medical history significant for newly diagnosed colon cancer, seizure disorder and hypertension presents to the emergency department with a 4-day history of constipation with abdominal pain and bloating. The patient reported at 3 AM morning he had severe abdominal pain and bloating. He took a Dulcolax which worsened his symptoms. He then reports multiple episodes of nonbloody nonbilious emesis that have continued throughout the day. He denies any chest pain or shortness of breath. No fever/chills. No lateralizing signs/symptoms. Ileus vs bowel obstruction. CT of the abdomen/pelvis significant for multiple loops of thickened small bowel most characteristic of enteritis with proximal small bowel dilation from an associated ileus Hx of colon cancer, records from [facility] reviewed. Recent colonoscopy with right colon large circumferential obstructing mass -keep N.p.o. -Appreciate Dr. Sylvester's input, will review records from [facility] and plans poss surgery next. -Continue IVF -Antiemetics PRN -Continue pain management -Bowel regimen Right Colon cancer Patient diagnosed approximately 1 month ago at [facility], saw Dr. Lynn Records obtained, had colonoscopy which showed right: Large circumferential obstructing mass cephalad to hepatic flexure, possibly proximal most ascending invasive or involving cecum Pathology positive for invasive adenocarcinoma moderately differentiated Was scheduled for PET scan next week -for poss surgery next week -Dr. Sylvester following Leukocytosis WBC 16.4 now 11. Received IV antibiotics in the emergency room- Zosyn Hold off on continuing antibiotics Continue to monitor WBC, monitor for fever Hypertension BP stable now, initially elevated. -Resume Atenolol Seizure disorder Last seizure 2 months ago, hx of TBI many years ago. Sees neurologist in [facility] -continue Dilantin and Tranxene Seizure precautions SCDs for DVT prophylaxis Repeat labs in the morning Home medications reviewed, initiated as indicated Code Status: Full code Discussed Condition With: RN, pt and family, Dr. Sylvester Discharge Planning: Pt. not ready for dc, for poss surgery next week. (2) Colon cancer Qualifiers: Colon location: ascending Qualified Code(s): C18.2 - Malignant neoplasm of ascending colon (4) HTN (hypertension) Qualifiers: Hypertension type: essential hypertension Qualified Code(s): I10 - Essential (primary) hypertension
--- NOTE | 2018-05-31 13:36 | MB ---
cc: Benito Sylvester MD DATE: 05/31/2018 REASON FOR CONSULTATION: Bowel obstruction versus ileus. HISTORY OF PRESENT ILLNESS: Mr. Arcos is a very pleasant 78-year-old who tells me that 2 days ago, he developed abdominal distention and bloating with some episodes of emesis. He felt like he was constipated and he took a suppository and this only made his pain worse. He reports no fever or chills. He states he feels a little bit better now than when he came in. He went to the emergency department where he was seen and evaluated and worked up. The patient had a CT scan which showed some enteritis of the small bowel without an actual mechanical bowel obstruction. The patient tells me that he was recently diagnosed with a right colon cancer. He states that he has been going to the [place] and they have been working him up. Apparently, the endoscopy was done by Dr. Betancourt at [facility] about a month ago. This was done for anemia. According to the patient's daughter, there was a large right colon cancer. The patient is supposed to have a PET scan on Sunday and they have not scheduled his surgery yet. The patient denies any fever or chills. He has not had any emesis since coming to the hospital. PAST MEDICAL HISTORY: Includes seizure disorder, hypertension and recently diagnosed colon cancer. PAST SURGICAL HISTORY: He has had an ORIF of his ankle. SOCIAL HISTORY: He does not smoke or drink. He is a and gets most of his health care at the [facility]. FAMILY HISTORY: Remarkable for diabetes. He states that no one in his family has had cancer that he is aware of. MEDICATION LIST: At home, he takes: 1. Dilantin. 2. Aspirin. 3. Iron. ALLERGIES: HE HAS NO KNOWN DRUG ALLERGIES. REVIEW OF SYSTEMS: Please see HPI. PHYSICAL EXAMINATION: VITAL SIGNS: Temperature 98, pulse 60, blood pressure 120/60, respiratory rate 20. GENERAL: This is a pleasant elderly gentleman accompanied by his family in the room. HEENT: Pupils equal, round and reactive to light. Sclerae are white. Oropharynx is clear and moist. NECK: Supple. No masses. LUNGS: Clear to auscultation bilaterally. HEART: S1, S2. No murmur. ABDOMEN: Soft overall. Bowel sounds are present. No rebound or guarding. No significant abdominal distention. No obvious hernias. No palpable masses. EXTREMITIES: Free range of motion x 4. NEUROLOGIC: Alert and oriented x 3. LABORATORY DATA: White blood cell count 11, hemoglobin 10, platelet count 238. Electrolytes are all within normal limits. IMAGING DATA: CT scan reviewed with Dr. Jordy Aponte in radiology. His CT does demonstrate some thickened edematous small bowel that appears to be more consistent with an enteritis. He does not have a mechanical obstruction. Specifically, there is no mechanical obstruction of the right colon that we can see on CT. We cannot visualize his colon cancer on the CT. He does not have any evidence of liver metastasis nor mesenteric adenopathy. The small bowel is mildly dilated, but several loops have a target ring around them and Dr. Aponte feels like this has bowel edema and not a bowel distention secondary to obstruction. He has a mild ileus associated with this. There is air and gas throughout the colon. IMPRESSION: 1. Enteritis, undetermined etiology. 2. Newly diagnosed colon cancer, nonobstructing. PLAN: At this point, I advised the patient and his family that I would like to wait and see how he does clinically. I do not believe this is a mechanical obstruction by colon cancer of his small bowel at the ileocecal valve. The CT imaging is not consistent with this at all. Both the initial reading by Dr. Saravia as well as a secondary read by Dr. Aponte and myself favor an enteritis with associated ileus. The colon does not appear distended consistent with an obstructing colon cancer. I advised the patient if his clinical symptoms improve, we would likely let him go home and consider an elective colon resection after a bowel prep and further workup. We will attempt to obtain the records from Dr. Betancourt at [facility] to see where exactly the cancer is and confirm the pathology. The patient and the family are happy with this plan. I advised them that we will let him rest over the next 24-48 hours and see if his bowel function returns. If he becomes acutely obstructed or starts bleeding, would consider emergent surgical therapy. Benito MD LEEANN Sutton/blanco , 12:43 PM , 12:55 PM
[2018-05-31] MEDS: Sodium Chloride 0.9% 2 ML Flush BID IV.FLUSH SCH ×2 (14:18→21:03)
[2018-05-31] MEDS: Phenytoin Sodium 100 MG Capsule PO SCH ×2 (14:26→21:03)
[2018-05-31] MEDS: Sod Chloride 0.9% Inj 1,000 ML IV.CONT SCH ×2 (16:08→19:43)
[2018-05-31] MEDS: Bisacodyl 10 MG Supp RECTAL PRN (18:41)
[2018-05-31] MEDS ORDERED: CLORAZEPATE 3.75 MG PO SCH (21:00)
[2018-05-31] MEDS: diazePAM 2 MG Tablet PO SCH (21:03)
[2018-06-01] MEDS: Sod Chloride 0.9% Inj 1,000 ML IV.CONT SCH ×3 (02:51→22:35)
[2018-06-01] MEDS ORDERED: CLORAZEPATE 7.5 MG PO SCH (09:00)
[2018-06-01] MEDS ORDERED: Atenolol 50 MG Tablet PO SCH (09:00)
[2018-06-01] MEDS: Phenytoin Sodium 100 MG Capsule PO SCH ×2 (09:33→21:07)
[2018-06-01] MEDS: diazePAM 5 MG Tablet PO SCH (09:37)
[2018-06-01] MEDS: Sodium Chloride 0.9% 2 ML Flush BID IV.FLUSH SCH ×2 (09:38→21:12)
[2018-06-01 10:36] LABS: Hematocrit 34.9 % (39.0-51.0); Hemoglobin 10.4 gm/dL (13.0-17.0); Mean Corpuscular Hemoglobin 23.1 pg (27.0-34.0); Mean Corpuscular Volume 77.6 fL (80.0-100.0); Mean Platelet Volume 7.4 fL (7.0-11.0); Platelet Count 216 th/mm3 (150-450); Red Blood Count 4.51 mil/mm3 (4.50-5.90); Red Cell Distribution Width 19.7 % (11.6-17.2); White Blood Count 9.5 th/mm3 (4.0-11.0)
[2018-06-01 10:39] LABS: Mean Corpuscular HGB Conc 29.8 % (32.0-36.0)
[2018-06-01 10:57] LABS: Anion Gap 9 meq/L (5-15); Blood Urea Nitrogen 17 mg/dL (7-18); Carbon Dioxide 21.9 meq/L (21.0-32.0); Chloride 111 meq/L (98-107); Glomerular Filtration Rate Greater Than 89 mL/min (>89); Glucose,Random 65 mg/dL (74-106); Sodium 142 meq/L (136-145)
[2018-06-01] MEDS: Atenolol 50 MG Tablet PO SCH (11:12)
[2018-06-01] MEDS: Bisacodyl 10 MG Supp RECTAL PRN (11:12)
--- NOTE | 2018-06-01 12:57 | P.PN ---
Subjective Interval history: Follow-up enteritis mild ileus/colon cancer?/Constipation June 01, 2018-patient seen and examined, no BM times 6 days, currently n.p.o. times 3 days. States he is passing out gas. Case discussed with patient and his Physical Exam Vital signs: Vital Signs 05/31/18 16:00 05/31/18 20:00 06/01/18 00:00 Temperature 98.3 F 98.1 F 98.1 F Pulse Rate 69 69 67 Respiratory Rate 16 18 19 Blood Pressure 119/61 133/62 125/60 Pulse Oximetry 97 95 93 L 06/01/18 07:15 06/01/18 08:00 Temperature 98.1 F 97.7 F Pulse Rate 67 75 Respiratory Rate 19 16 Blood Pressure 125/60 133/56 L Pulse Oximetry 93 L 97 Intake & Output 05/31/18 06/01/18 06/01/18 18:59 06:59 18:59 Intake Total 1100 / 1100 120 / 120 Balance 1100 / 1100 120 / 120 Weight 78 kg Intake: IV 1000 / 1000 NS Inj 1,000 ML @ 100 mls/hr IV 1000 / 1000 .CONT .Q10H MATHEW Rx#:[id number] Oral 100 / 100 120 / 120 Other: # Voids 1 2 1 Date of Last Bowel Movement 05/26/18 05/26/18 Narrative: Gen.: 78-year-old well-developed well-nourished male no acute distress Head: Normocephalic. Atraumatic. EENT: Pupils equal round and reactive to light. Nose without drainage. Airway intact. Throat without injection. Cardiovascular: Regular rate and rhythm. No murmurs, rubs or gallops. Respiratory: Lungs clear to auscultation bilaterally. No wheezes or rhonchi. Abdomen: Distended. Tender to palpation to right upper and right lower quadrant. No peritoneal signs. Hypoactive bowel sounds. Musculoskeletal: No gross deformities. No edema. Skin: No obvious rashes or erythema. Neuro: Awake, alert oriented x3. No focal deficits. Results - Labs CBC & Chem 7: 06/01/18 09:43 06/01/18 09:48 Laboratory Results - last 24 hr 06/01/18 06/01/18 09:43 09:48 WBC 9.5 RBC 4.51 Hgb 10.4 L Hct 34.9 L MCV 77.6 L MCH 23.1 L MCHC 29.8 L RDW 19.7 H Plt Count 216 MPV 7.4 Sodium 142 Potassium 4.0 Chloride 111 H Carbon Dioxide 21.9 Anion Gap 9 BUN 17 Creatinine 0.73 Estimated GFR Greater than 89 Random Glucose 65 L Calcium 8.0 L Assessment and Plan - Assessment (1) Abdominal pain Code(s): R10.9 - Unspecified abdominal pain Status: Acute (2) Colon cancer Code(s): C18.9 - Malignant neoplasm of colon, unspecified Status: Acute (3) Seizure disorder Code(s): G40.909 - Epilepsy, unspecified, not intractable, without status epilepticus Status: Chronic (4) HTN (hypertension) Code(s): I10 - Essential (primary) hypertension Status: Chronic - Plan 78-year-old man with Enteritis Continue with conservative management Mild ileus No evidence of mechanical bowel obstruction on CT scan Management per general surgery If no improvement, will go for emergent resection Currently n.p.o. Right Colon cancer Patient diagnosed approximately 1 month ago at [facility], saw Dr. Lynn Records obtained, had colonoscopy which showed right: Large circumferential obstructing mass cephalad to hepatic flexure, possibly proximal most ascending invasive or involving cecum Pathology positive for invasive adenocarcinoma moderately differentiated Was scheduled for PET scan next week Constipation -Continue current treatment Hypertension -Currently on atenolol Seizure disorder -continue Dilantin and Tranxene Seizure precautions SCDs for DVT prophylaxis \ (2) Colon cancer Qualifiers: Colon location: ascending Qualified Code(s): C18.2 - Malignant neoplasm of ascending colon (4) HTN (hypertension) Qualifiers: Hypertension type: essential hypertension Qualified Code(s): I10 - Essential (primary) hypertension
--- NOTE | 2018-06-01 19:25 | P.PN ---
Subjective Interval history: No complaints at present; wants to eat. Physical Exam Vital signs: Vital Signs 05/31/18 20:00 06/01/18 00:00 06/01/18 07:15 Temperature 98.1 F 98.1 F 98.1 F Pulse Rate 69 67 67 Respiratory Rate 18 19 19 Blood Pressure 133/62 125/60 125/60 Pulse Oximetry 95 93 L 93 L 06/01/18 08:00 06/01/18 12:00 06/01/18 16:00 Temperature 97.7 F 97.5 F L 97.2 F L Pulse Rate 75 66 61 Respiratory Rate 16 16 18 Blood Pressure 133/56 L 130/71 145/65 H Pulse Oximetry 97 99 99 Intake & Output 06/01/18 06/01/18 06/02/18 06:59 18:59 06:59 Intake Total 1100 / 1100 120 / 120 Balance 1100 / 1100 120 / 120 Weight 78 kg Intake: IV 1000 / 1000 NS Inj 1,000 ML @ 100 mls/hr IV 1000 / 1000 .CONT .Q10H MATHEW Rx#:[id number] Oral 100 / 100 120 / 120 Other: # Voids 2 2 Date of Last Bowel Movement 05/26/18 - Routine Abdominal Exam Present: soft Comments: No tenderness or distention Results - Labs CBC & Chem 7: 06/01/18 09:43 06/01/18 09:48 Laboratory Results - last 24 hr 06/01/18 06/01/18 09:43 09:48 WBC 9.5 RBC 4.51 Hgb 10.4 L Hct 34.9 L MCV 77.6 L MCH 23.1 L MCHC 29.8 L RDW 19.7 H Plt Count 216 MPV 7.4 Sodium 142 Potassium 4.0 Chloride 111 H Carbon Dioxide 21.9 Anion Gap 9 BUN 17 Creatinine 0.73 Estimated GFR Greater than 89 Random Glucose 65 L Calcium 8.0 L Assessment and Plan - Assessment (1) Abdominal pain Code(s): R10.9 - Unspecified abdominal pain Status: Acute (2) Colon cancer Code(s): C18.9 - Malignant neoplasm of colon, unspecified Status: Acute Plan: Resection in the future. Will start on liquids today. - Attending Attestation I attest that I had a [id number] encounter with the patient on the same day, and personally performed and documented my assessment and findings in the medical record. The following services were provided during this hospital visit: Chart data review, vital sign assessments/reviewing monitor data Review of consultation notes if present Medication orders/review and/or management Ordering and/or reviewing lab tests Ordering and/or interpreting/reviewing x-rays and/or diagnostic studies Care of the patient and discussion of the patient with the care team Documentation time To help prompt me to consider important information that might be impacting today's encounter and assessment, Information from prior notes written by myself or my colleagues may have been "brought forward/copy and pasted" into today's note. (2) Colon cancer Qualifiers: Colon location: ascending Qualified Code(s): C18.2 - Malignant neoplasm of ascending colon
[2018-06-01] MEDS: diazePAM 2 MG Tablet PO SCH (21:07)
[2018-06-01] MEDS: Sodium Chloride 0.9% 2 ML Flush PRN IV.FLUSH (21:11)
--- NOTE | 2018-06-02 09:09 | P.PN ---
Subjective Interval history: Follow-up enteritis mild ileus/colon cancer?/Constipation 06/02: Seen in his bedroom discussed with nurse Miss Fregoso, patient walking at this time with his as per General Surgery Ileus versus Obstruction, okay for sips of clears, Enema , Small bowel follow through if no improvement. no nausea at this time, but had one episode of vomit early in the morning today. Physical Exam Vital signs: Vital Signs 06/01/18 12:00 06/01/18 16:00 06/01/18 20:00 Temperature 97.5 F L 97.2 F L 98 F Pulse Rate 66 61 58 L Respiratory Rate 16 18 16 Blood Pressure 130/71 145/65 H 133/58 L Pulse Oximetry 99 99 96 06/02/18 00:00 06/02/18 08:00 Temperature 97.6 F 98.0 F Pulse Rate 60 69 Respiratory Rate 16 17 Blood Pressure 124/62 121/58 L Pulse Oximetry 97 95 Intake & Output 06/01/18 06/02/18 06/02/18 18:59 06:59 18:59 Intake Total 120 / 120 1480 / 1480 Balance 120 / 120 1480 / 1480 Weight 78 kg Intake: IV 1000 / 1000 NS Inj 1,000 ML @ 100 mls/hr IV 1000 / 1000 .CONT .Q10H MATHEW Rx#:[id number] Oral 120 / 120 480 / 480 Other: # Voids 2 4 Narrative: General: No acute distress. Head: Normocephalic. Atraumatic. EENT: Pupils equal round and reactive to light. Nose without drainage. Airway intact. Throat without injection. Cardiovascular: Regular rate and rhythm. No murmurs, rubs or gallops. Respiratory: Lungs clear to auscultation bilaterally. No wheezes or rhonchi. Abdomen: Distended. Tender to palpation to right upper and right lower quadrant. No peritoneal signs. Hypoactive bowel sounds. Musculoskeletal: No gross deformities. No edema. Skin: No obvious rashes or erythema. Neuro: Awake, alert oriented x3. No focal deficits. Results - Labs CBC & Chem 7: 06/01/18 09:43 06/01/18 09:48 Laboratory Results - last 24 hr 06/01/18 06/01/18 09:43 09:48 WBC 9.5 RBC 4.51 Hgb 10.4 L Hct 34.9 L MCV 77.6 L MCH 23.1 L MCHC 29.8 L RDW 19.7 H Plt Count 216 MPV 7.4 Sodium 142 Potassium 4.0 Chloride 111 H Carbon Dioxide 21.9 Anion Gap 9 BUN 17 Creatinine 0.73 Estimated GFR Greater than 89 Random Glucose 65 L Calcium 8.0 L Assessment and Plan - Assessment (1) Abdominal pain Code(s): R10.9 - Unspecified abdominal pain Status: Acute (2) Colon cancer Code(s): C18.9 - Malignant neoplasm of colon, unspecified Status: Acute (3) Seizure disorder Code(s): G40.909 - Epilepsy, unspecified, not intractable, without status epilepticus Status: Chronic (4) HTN (hypertension) Code(s): I10 - Essential (primary) hypertension Status: Chronic - Plan 78-year-old man with Ileus versus Obstruction General Surgery Ileus versus Obstruction, okay for sips of clears, Enema, Small bowel follow through if no improvement. no nausea at this time, but had one episode of vomit early in the morning today. Mild ileus No evidence of mechanical bowel obstruction on CT scan Management per general surgery If no improvement, will go for emergent resection okay for sips of clears. Right Colon cancer Patient diagnosed approximately 1 month ago at [facility], saw Dr. Lynn Records obtained, had colonoscopy which showed right: Large circumferential obstructing mass cephalad to hepatic flexure, possibly proximal most ascending invasive or involving cecum Pathology positive for invasive adenocarcinoma moderately differentiated Was scheduled for PET scan next week Hypertension -Currently on atenolol Seizure disorder -continue Dilantin and Tranxene Seizure precautions SCDs for DVT prophylaxis Code Status: Full code. Discussed Condition With: Patient, his and nurse Miss Fregoso. Discharge Planning: once cleared by General Surgery. (2) Colon cancer Qualifiers: Colon location: ascending Qualified Code(s): C18.2 - Malignant neoplasm of ascending colon (4) HTN (hypertension) Qualifiers: Hypertension type: essential hypertension Qualified Code(s): I10 - Essential (primary) hypertension
[2018-06-02] MEDS: Phenytoin Sodium 100 MG Capsule PO SCH ×2 (09:24→20:21)
[2018-06-02] MEDS: diazePAM 5 MG Tablet PO SCH (09:26)
[2018-06-02] MEDS: Sodium Chloride 0.9% 2 ML Flush BID IV.FLUSH SCH ×2 (09:26→20:20)
[2018-06-02] MEDS: Sod Chloride 0.9% Inj 1,000 ML IV.CONT SCH ×2 (09:27→17:52)
--- NOTE | 2018-06-02 12:56 | P.PNGS ---
Subjective Patient reports: flatus, no bowel movement, vomiting Physical Exam Vital signs: Vital Signs 06/01/18 16:00 06/01/18 20:00 06/02/18 00:00 Temperature 97.2 F L 98 F 97.6 F Pulse Rate 61 58 L 60 Respiratory Rate 18 16 16 Blood Pressure 145/65 H 133/58 L 124/62 Pulse Oximetry 99 96 97 06/02/18 08:00 Temperature 98.0 F Pulse Rate 69 Respiratory Rate 17 Blood Pressure 121/58 L Pulse Oximetry 95 Intake & Output 06/01/18 06/02/18 06/02/18 18:59 06:59 18:59 Intake Total 120 / 120 1480 / 1480 1000 / 1000 Balance 120 / 120 1480 / 1480 1000 / 1000 Weight 78 kg Intake: IV 1000 / 1000 1000 / 1000 NS Inj 1,000 ML @ 100 mls/hr IV 1000 / 1000 1000 / 1000 .CONT .Q10H MATHEW Rx#:[id number] Oral 120 / 120 480 / 480 Other: # Voids 2 4 - Routine Abdominal Exam Present: soft, tenderness, distended Results - Labs 06/01/18 09:43 06/01/18 09:48 - Imaging Imaging: ITS Impressions Abdomen/Pelvis CT 05/30/18 19:10 CONCLUSION: 1. Multiple loops of thickened small bowel in the mid and distal portion most characteristic of an enteritis. Mild dilatation of proximal small bowel likely from associated ileus. There is gas within the partially decompressed colon. 2. Nonobstructing small lower pole left renal calculus. Calcified gallstone. Mild fatty liver. Assessment and Plan - Assessment (1) Abdominal pain Code(s): R10.9 - Unspecified abdominal pain Status: Acute (2) Colon cancer Code(s): C18.9 - Malignant neoplasm of colon, unspecified Status: Acute - Plan ileus v obstruction PLAN ok for sips of clears check axr enema SBFT if no improvement check and correct lytes ambulate (2) Colon cancer Qualifiers: Colon location: ascending Qualified Code(s): C18.2 - Malignant neoplasm of ascending colon
[2018-06-02] MEDS ORDERED: Sod Phosphate/Sod Biphosphate (Adult) Enema 133 ML Bottle RECTAL ONE (13:30)
[2018-06-02] MEDS: Atenolol 50 MG Tablet PO SCH (13:36)
[2018-06-02] MEDS: Bisacodyl 10 MG Supp RECTAL PRN (14:27)
--- NOTE | 2018-06-02 16:20 | XR ---
EXAM DATE: 06/02/2018 12:00 AM EDT AGE/SEX: 78 years / Male INDICATIONS: Abdominal pain and distention. CLINICAL DATA: This is the patient's initial encounter. Patient reports that signs and symptoms have been present for 3 days and indicates a pain score of 5/10. MEDICAL/SURGICAL HISTORY: Carcinoma, colon. None. COMPARISON: No prior exams available for comparison. FINDINGS: There is gaseous distention diffusely of small bowel. No free air. No acute bony abnormalities. Mild osteoarthritis of the hips. CONCLUSION: Diffuse gaseous distention of small bowel. There is some gas in the colon. Differential diagnosis inc ludes ileus or low-grade obstruction. Electronically signed by: Jose Saravia MD 06/02/2018 4:18 PM EDT
[2018-06-02] MEDS: CLORAZEPATE 3.75 MG PO SCH (20:21)
[2018-06-03] MEDS: Sod Chloride 0.9% Inj 1,000 ML IV.CONT SCH ×3 (03:00→23:49)
[2018-06-03 07:23] LABS: Albumin 3.1 g/dL (3.4-5.0); Anion Gap 14 meq/L (5-15); Aspartate Aminotransferase 18 U/L (15-37); Blood Urea Nitrogen 10 mg/dL (7-18); Carbon Dioxide 16.9 meq/L (21.0-32.0); Chloride 113 meq/L (98-107); Glomerular Filtration Rate 87 mL/min (>89); Glucose,Random 95 mg/dL (74-106); Magnesium 1.7 mg/dL (1.5-2.5); Potassium 3.9 meq/L (3.5-5.1); Sodium 144 meq/L (136-145)
[2018-06-03 07:27] LABS: Alanine Aminotransferase 15 U/L (12-78); Alkaline Phosphatase 68 U/L (45-117); Total Protein 6.8 g/dL (6.4-8.2)
[2018-06-03] MEDS ORDERED: CLORAZEPATE PO SCH (09:00)
[2018-06-03] MEDS: Atenolol 50 MG Tablet PO SCH (12:05)
[2018-06-03] MEDS: Phenytoin Sodium 100 MG Capsule PO SCH ×2 (12:05→21:26)
[2018-06-03] MEDS ORDERED: Chlorhexidine Gluconate 2% 1 Pack (2 Cloths) TOPICAL ONE (12:06)
[2018-06-03] MEDS ORDERED: Metoprolol Tartrate 25 MG Tablet PO ONE (12:06)
[2018-06-03] MEDS ORDERED: Bupivacaine/Epinephrine Inj 0.25% 50 ML Vial ONE (12:39)
--- NOTE | 2018-06-03 12:47 | XR ---
EXAM DATE: 06/03/2018 12:00 AM EDT AGE/SEX: 78 years / Male INDICATIONS: Distention. CLINICAL DATA: This is the patient's initial encounter. Patient reports that signs and symptoms have been present for 1 day and indicates a pain score of 9/10. MEDICAL/SURGICAL HISTORY: Carcinoma, colon. None. COMPARISON: C, ABDOMEN 1V KUB, 06/02/2018. . FINDINGS: Redemonstration of multiple loops of air-filled distended small bowel in the midabdomen. Very minimal colonic gas. No gross free air or pneumatosis in the visualized portions of the abdomen. Remainder o f the exam is unchanged. CONCLUSION: 1. Bowel gas pattern is consistent with persistent small bowel obstruction versus severe adynamic il eus. Electronically signed by: Lloyd Kemp MD 06/03/2018 12:46 PM EDT
[2018-06-03] MEDS ORDERED: Sodium Chlor 0.9% Inj 500 ML IV.SIG SCH (13:00)
[2018-06-03] MEDS ORDERED: Levofloxacin 500 mg Premix Inj 500 MG/100 ML PIGGYBACK IV.SIG SCH (13:00)
[2018-06-03] MEDS ORDERED: Normosol-R pH 7.4 Inj 1,000 ML IV.CONT ONE (13:27)
[2018-06-03] MEDS ORDERED: Glycopyrrolate Inj 1 MG/5 ML Syringe IV.PUSH ONE (13:27)
[2018-06-03] MEDS ORDERED: Succinylcholine Inj 100 MG/5 ML Syringe IV.PUSH ONE (13:27)
[2018-06-03] MEDS ORDERED: Lidocaine PF 1% Inj 5 ML Syringe OTHER ONE (13:27)
[2018-06-03] MEDS ORDERED: Neostigmine Inj 5 MG/5 ML Syringe IV.PUSH ONE (13:27)
[2018-06-03] MEDS ORDERED: Phenylephrine/NS 1000 MCG/10ML Syringe IV.PUSH ONE (13:27)
[2018-06-03] MEDS: CLORAZEPATE PO SCH (13:45)
[2018-06-03] MEDS: Sodium Chloride 0.9% 2 ML Flush BID IV.FLUSH SCH ×2 (13:45→21:26)
[2018-06-03] MEDS ORDERED: Ketorolac Inj 30 MG/ML (IVP) Vial IV.PUSH PRN (15:40)
[2018-06-03] MEDS ORDERED: Morphine Inj 30 MG/30 ML PCA.VIAL PCA PRN (15:41)
[2018-06-03] MEDS ORDERED: fentaNYL Citrate Inj 100 MCG/2 ML Ampul ONE (15:56)
--- NOTE | 2018-06-03 16:06 | MP ---
cc: Benito Sylvester MD DATE OF OPERATION: 06/03/2018 PREOPERATIVE DIAGNOSIS: Obstructing right colon cancer. POSTOPERATIVE DIAGNOSES: 1. Obstructing right colon cancer. 2. He has bilateral inguinal hernias. PROCEDURE: Laparoscopic-assisted right hemicolectomy. SURGEON: Benito Sylvester MD [employer]CR[employer]EMENT INSTALLER: Cindy. ANESTHESIA: General endotracheal. ESTIMATED BLOOD LOSS: 50 mL INDICATIONS FOR PROCEDURE: Mr. Arcos is a pleasant 78-year-old gentleman who presented to the hospital on 05/30/2018 with complaints of nausea, vomiting, abdominal distention, abdominal pain. His clinical history is remarkable for being diagnosed with a nearly obstructing right colon cancer about 1 month ago at [facility] under the care of Dr. Lynn. He was referred to the [facility] in [place], who apparently did not schedule a surgery expeditiously. The patient presented to the emergency department as stated on, 05/30/2018 with complaints of no bowel movement for 4 days. He had had multiple episodes of emesis. He tried a laxative, but this did not help. He was admitted for observation. Initial imaging demonstrated a diffuse thickening of the small bowel without significant dilatation or air fluid levels. The right colon cancer was seen in the ileocecal region. He was attempted to be managed nonoperatively so he could be bowel prepped and electively resected. Over the next 48 hours, he failed to progress. I saw him this morning and advised that we should go ahead and proceed with surgery as he clinically was not responding and was clearly obstructed. The risks and benefits of immediate unprepped right hemicolectomy was discussed with him and his family and they expressed understanding about the increased risks involved with the procedure. DETAILS OF PROCEDURE: The patient was identified, brought to the operating room, placed supine on the operating table. After adequate general endotracheal anesthesia was achieved, the abdomen was prepped and draped in standard surgical fashion. Supraumbilical space was anesthetized with 0.25% Marcaine. Supraumbilical incision was made. Dissection was carried down through subcutaneous tissue to midline fascia. Midline fascia was incised sharply. A finger was placed in the peritoneal cavity without difficulty. Blunt balloon trocar was inserted and the abdomen was insufflated to 15 mmHg using CO2 gas. Next a 5 mm trocar was placed in the lower midline and in the right lower quadrant under direct vision. The patient was placed in Trendelenburg position. Right colon was identified. The previous tattoo by Dr. Lynn was seen in the cecum. The appendix was then grasped and the right colon was mobilized up off the lateral abdominal sidewall. Once the colon was freed up to the hepatic flexure, the procedure was then converted to open. The supraumbilical incision was enlarged and an Reagan hand port was then placed. The 5 mm trocars were removed. The cecum and small bowel were clearly visible right underneath the incision. These were grasped and brought up into the operative wound. The terminal ileum was then transected using a SHERINE-75 device. We then took down the mesentery using the Harmonic scalpel. Once we identified the right colic vessels, they were clamped and doubly tied with 2-0 Vicryl suture proximally and single distal. We then followed the mesentery up a little higher. We then pulled down the hepatic flexure. It was mobilized up into the operative wound where we had the entire right colon up. A site was selected in the proximal transverse colon. This was then divided with the stapling device. The mesentery again was taken down with the Harmonic scalpel. Specimen was then removed and sent to pathology for analysis. Attention was now directed to the anastomosis. Anastomosis was performed using a [id number] technique. Enterotomies were made on the tinea of the transverse colon, the antimesenteric border of the small bowel. SHERINE-75 stapler was then fired. Enterotomy was then closed with a TA stapler. The staple lines were then oversewn with 3-0 GI silks. Mesenteric defect was then closed with a 3-0 GI silks. Anastomosis was palpated and found to be patent. A crotch stitch was placed on the distal anastomosis at the end of the staple line. Anastomosis was gently squeezed and no evidence of leak was noted. We then milked the small bowel back in a retrograde fashion and got back 2 liters of succuss entericus via the NG tube, which had been placed by Anesthesia. With this the small bowel was completely decompressed. The anastomosis and small bowel were then returned to the abdominal cavity. Omentum was placed over the anastomosis. The abdominal cavity was rinsed out with 1 liter of warm saline solution. Effluent was noted to be clear. Attention was now directed to closure. Closure was accomplished using a #1 PDS in continuous running fashion from above and below. The subcutaneous tissue was copiously irrigated with normal saline solution, injected with additional local anesthetic and then closed with a skin stapling device. All 5 mm port sites were closed with skin stapling device. The patient tolerated the procedure well and was awakened and brought to the recovery room in stable condition. A brief view of the abdominal cavity revealed the patient had small bilateral inguinal hernias which were photographed. There was no evidence of gross liver metastasis by visualization with the laparoscope. Benito MD LEEANN Sutton/nickolas , 03:39 PM , 03:51 PM
[2018-06-03] MEDS: Morphine Inj 30 MG/30 ML PCA.VIAL PCA PRN (16:26)
--- NOTE | 2018-06-03 16:47 | ECG ---
Date Performed: 06/03/2018 Time Performed: 12:10:39 PTAGE: 78 years EKG: Sinus rhythm WITH OCCASIONAL SUPRAVENTRICULAR PREMATURE COMPLEXES NONSPECIFIC T-WAVE ABNORMALITY BORDERLINE ECG NO PREVIOUS TRACING DOCTOR: Hannah Alvarez Interpretating Date/Time 06/03/2018 16:42:21
--- NOTE | 2018-06-03 17:40 | P.PNIM ---
Subjective Interval history: 78-year-old male with a past medical history significant for newly diagnosed colon cancer, seizure disorder and hypertension presents to the emergency department with a 4-day history of constipation with abdominal pain and bloating. The patient reports at 3 AM this morning he had severe abdominal pain and bloating. He took a Dulcolax which worsened his symptoms. He then reports multiple episodes of nonbloody nonbilious emesis that have continued throughout the day. He denies any chest pain or shortness of breath. No fever/ chills. No lateralizing signs/symptoms. 05-31 Follow-up for abdominal pain, ileus versus small bowel obstruction, recent diagnosis of colon cancer-patient seen and examined, complains of right abdomen pain, no BM times a week. No nausea and no vomiting since yesterday. No chest pain, no shortness of breath. No fever overnight. Family at bedside. Spoke to Dr. Diez this morning, possible surgery next week. 06-01 Follow-up enteritis mild ileus/colon cancer?/Constipation June 01, 2018-patient seen and examined, no BM times 6 days, currently n.p.o. times 3 days. States he is passing out gas. Case discussed with patient and his 06-02 Follow-up enteritis mild ileus/colon cancer?/Constipation 06/02: Seen in his bedroom discussed with nurse Miss Fregoso, patient walking at this time with his as per General Surgery Ileus versus Obstruction, okay for sips of clears, Enema , Small bowel follow through if no improvement. no nausea at this time, but had one episode of vomit early in the morning today. 06-[address] DIEZ TODAY LAPAROSCOPIC-ASSISTED RIGHT HEMICOLECTOMY BY DR WILFRID DIEZ ON 06-03 FOR OBSTRUCTING RIGHT COLON CANCER Physical Exam Vital signs: Vital Signs 06/02/18 20:00 06/03/18 00:00 06/03/18 04:00 Temperature 98.2 F 98.9 F 98.6 F Pulse Rate 94 H 76 72 Respiratory Rate 17 17 17 Blood Pressure 114/63 117/57 L 119/56 L Pulse Oximetry 99 94 L 94 L 06/03/18 08:00 06/03/18 12:00 06/03/18 15:43 Temperature 98.1 F 98.5 F 99 F Pulse Rate 70 64 88 Respiratory Rate 16 17 14 Blood Pressure 123/60 126/59 L 141/65 H Pulse Oximetry 95 95 92 L 06/03/18 15:45 06/03/18 16:00 06/03/18 16:15 Temperature 99 F 98.7 F 98.7 F Pulse Rate 90 86 82 Respiratory Rate 14 14 16 Blood Pressure 139/63 128/60 136/63 Pulse Oximetry 90 L 93 L 94 L 06/03/18 16:30 06/03/18 16:45 Temperature 98.7 F 98.7 F Pulse Rate 78 78 Respiratory Rate 14 14 Blood Pressure 140/60 140/60 Pulse Oximetry 96 96 Intake & Output 06/02/18 06/03/18 06/03/18 18:59 06:59 18:59 Intake Total 1999 1000 / 1000 2200 / 2200 Output Total 250 / 250 Balance 1999 1000 / 1000 1950 / 1950 Weight 78.2 kg Intake: IV 1999 1000 / 1000 200 / 200 NS Inj 1,000 ML @ 100 mls/hr IV 1999 1000 / 1000 .CONT .Q10H MATHEW Rx#:[id number] Levaquin 500 mg Premix Inj 500 100 / 100 mg In 100 ml @ 100 mls/hr IV. [employer] MATHEW Rx#:[id number] Flagyl 500 MG Inj 100 ML @ 100 100 / 100 mls/hr IV.SIG INS[employer]OR [employer]ICATING MATHEW Rx#: [id number] Anesthesia Amount 1999 Output: Estimated Blood Loss 50 / 50 Urine Amount (Catheter) 200 / 200 Indwelling Urethral Catheter 200 / 200 Other: # Voids 2 Narrative: General: No acute distress. Head: Normocephalic. Atraumatic. EENT: Pupils equal round and reactive to light. Nose without drainage. Airway intact. Throat without injection.NGT IN PLACE Cardiovascular: Regular rate and rhythm. No murmurs, rubs or gallops. S1, S2 NO S3 OR S4 Respiratory: Lungs clear to auscultation bilaterally. No wheezes or rhonchi. Abdomen: Distended. Tender to palpation to right upper and right lower quadrant. No peritoneal signs. Hypoactive bowel sounds. DRESSED Musculoskeletal: No gross deformities. No edema. Skin: No obvious rashes or erythema. Neuro: Awake, alert oriented x3. No focal deficits. - Urinary Catheter Management Indwelling Urethral Catheter Cath placed during this visit: yes Reason for continuing: Hourly intake/output Insertion date: 06/03/18 Insertion time: 13:42 Results - Labs CBC & Chem 7: 06/01/18 09:43 06/03/18 05:40 Laboratory Results - last 24 hr 06/03/18 06/03/18 06/03/18 05:40 12:23 12:23 Sodium 144 Potassium 3.9 Chloride 113 H Carbon Dioxide 16.9 L Anion Gap 14 BUN 10 Creatinine 0.85 Estimated GFR 87 L Random Glucose 95 Calcium 8.0 L Phosphorus 2.0 L Magnesium 1.7 Total Bilirubin 0.3 AST 18 ALT 15 Alkaline Phosphatase 68 Total Protein 6.8 D Albumin 3.1 L Blood Type O Positive Blood Type Recheck Required Antibody Screen Negative MTS Gel Crossmatch See Detail - Imaging Impressions Abdomen X-Ray 06/03/18 00:00 CONCLUSION: 1. Bowel gas pattern is consistent with persistent small bowel obstruction versus severe adynamic ileus. - Procedures DATE OF OPERATION: 06/03/2018 PREOPERATIVE DIAGNOSIS: Obstructing right colon cancer. POSTOPERATIVE DIAGNOSES: 1. Obstructing right colon cancer. 2. He has bilateral inguinal hernias. PROCEDURE: Laparoscopic-assisted right hemicolectomy. SURGEON: Wilfrid Diez MD Assessment and Plan - Assessment (1) Abdominal pain Code(s): R10.9 - Unspecified abdominal pain Status: Acute (2) Colon cancer Code(s): C18.9 - Malignant neoplasm of colon, unspecified Status: Acute (3) Seizure disorder Code(s): G40.909 - Epilepsy, unspecified, not intractable, without status epilepticus Status: Chronic (4) HTN (hypertension) Code(s): I10 - Essential (primary) hypertension Status: Chronic - Plan 78-year-old man with Ileus versus Obstruction General Surgery Ileus versus Obstruction, okay for sips of clears, Enema, Small bowel follow through if no improvement. no nausea at this time, but had one episode of vomit early in the morning today. SP SURGERY TODAY 06-03 laparoscopic assisted right hemicolectomy Mild ileus No evidence of mechanical bowel obstruction on CT scan Management per general surgery -N.p.o. per surgery status post surgery today with laparoscopic assisted right hemicolectomy Has NG tube in place 1. Obstructing right colon cancer. PROCEDURE: Laparoscopic-assisted right hemicolectomy. 06-03 Right Colon cancer Patient diagnosed approximately 1 month ago at [facility], saw Dr. Lynn Records obtained, had colonoscopy which showed right: Large circumferential obstructing mass cephalad to hepatic flexure, possibly proximal most ascending invasive or involving cecum Pathology positive for invasive adenocarcinoma moderately differentiated Was scheduled for PET scan next week Has a laparoscopic-assisted right hemicolectomy June 03 Hypertension -Currently on atenolol Seizure disorder -continue Dilantin and Tranxene Seizure precautions SCDs for DVT prophylaxis Code Status: Full code Discussed Condition With: RN and patient and and surgery and case managed Discharge Planning: Once cleared and tolerating a diet per surgery (2) Colon cancer Qualifiers: Colon location: ascending Qualified Code(s): C18.2 - Malignant neoplasm of ascending colon (4) HTN (hypertension) Qualifiers: Hypertension type: essential hypertension Qualified Code(s): I10 - Essential (primary) hypertension
[2018-06-03] MEDS: CLORAZEPATE 3.75 MG PO SCH (21:27)
[2018-06-04] MEDS: Morphine Inj 30 MG/30 ML PCA.VIAL PCA PRN ×3 (00:42→19:47)
[2018-06-04 05:20] LABS: Baso % (Auto) 0.2 % (0.0-2.0); Hematocrit 27.2 % (39.0-51.0); Hemoglobin 8.6 gm/dL (13.0-17.0); Lymph # (Auto) 1.3 th/mm3 (1.0-4.8); Lymph % (Auto) 15.8 % (9.0-44.0); Mean Corpuscular HGB Conc 31.7 % (32.0-36.0); Mean Corpuscular Volume 75.9 fL (80.0-100.0); Mean Platelet Volume 7.3 fL (7.0-11.0); Mono # (Auto) 0.8 th/mm3 (0.0-0.9); Mono % (Auto) 9.7 % (0.0-8.0); Neut # (Auto) 6.2 th/mm3 (1.8-7.7); Neut % (Auto) 74.3 % (16.0-70.0); Platelet Count 207 th/mm3 (150-450); Red Blood Count 3.59 mil/mm3 (4.50-5.90); Red Cell Distribution Width 19.6 % (11.6-17.2); White Blood Count 8.3 th/mm3 (4.0-11.0)
[2018-06-04 05:33] LABS: INR 1.4 Ratio; Prothrombin Time 13.7 sec (9.8-11.6)
[2018-06-04 05:43] LABS: Albumin 2.7 g/dL (3.4-5.0); Anion Gap 10 meq/L (5-15); Aspartate Aminotransferase 23 U/L (15-37); Blood Urea Nitrogen 9 mg/dL (7-18); Calcium 7.5 mg/dL (8.5-10.1); Carbon Dioxide 22.1 meq/L (21.0-32.0); Chloride 114 meq/L (98-107); Glomerular Filtration Rate 74 mL/min (>89); Glucose,Random 106 mg/dL (74-106); Magnesium 1.6 mg/dL (1.5-2.5); Potassium 4.1 meq/L (3.5-5.1); Sodium 146 meq/L (136-145)
[2018-06-04] MEDS: Sod Chloride 0.9% Inj 1,000 ML IV.CONT SCH ×3 (05:44→14:36)
[2018-06-04 05:53] LABS: Alanine Aminotransferase 17 U/L (12-78); Alkaline Phosphatase 61 U/L (45-117); Free T4 (Free Thyroxine) 1.01 ng/dL (0.76-1.46); Phosphorus 2.2 mg/dL (2.5-4.9); Total Protein 6.2 g/dL (6.4-8.2)
--- NOTE | 2018-06-04 08:57 | P.PNGS ---
Subjective Patient reports: feels better, pain is less, no flatus, no bowel movement Physical Exam Vital signs: Vital Signs 06/03/18 12:00 06/03/18 15:43 06/03/18 15:45 Temperature 98.5 F 99 F 99 F Pulse Rate 64 88 90 Respiratory Rate 17 14 14 Blood Pressure 126/59 L 141/65 H 139/63 Pulse Oximetry 95 92 L 90 L 06/03/18 16:00 06/03/18 16:15 06/03/18 16:30 Temperature 98.7 F 98.7 F 98.7 F Pulse Rate 86 82 78 Respiratory Rate 14 16 14 Blood Pressure 128/60 136/63 140/60 Pulse Oximetry 93 L 94 L 96 06/03/18 16:45 06/03/18 19:24 06/03/18 19:32 Temperature 98.7 F Pulse Rate 78 Respiratory Rate 14 23 Blood Pressure 140/60 Pulse Oximetry 96 96 06/03/18 20:00 06/04/18 00:00 06/04/18 01:22 Temperature 97.7 F 98.7 F Pulse Rate 93 H 89 Respiratory Rate 18 18 18 Blood Pressure 148/68 H 136/61 Pulse Oximetry 94 L 94 L 06/04/18 04:00 06/04/18 08:00 Temperature 97.1 F L 97.1 F L Pulse Rate 88 88 Respiratory Rate 18 18 Blood Pressure 161/70 H 160/72 H Pulse Oximetry 95 94 L Intake & Output 06/03/18 06/04/18 06/04/18 18:59 06:59 18:59 Intake Total 3504 / 3504 2596 / 2596 1000 / 1000 Output Total 250 / 250 1275 / 1275 Balance 3254 / 3254 1321 / 1321 1000 / 1000 Weight 80.1 kg Intake: IV 1504 / 1504 1696 / 1696 1000 / 1000 NS Inj 1,000 ML @ 150 mls/hr IV 1304 / 1304 1696 / 1696 1000 / 1000 .CONT .Q6H40M MAHTEW Rx#:[id number] Levaquin 500 mg Premix Inj 500 100 / 100 mg In 100 ml @ 100 mls/hr IV. SIG RUBBER FLAP CUTTER MATHEW Rx#:[id number] Flagyl 500 MG Inj 100 ML @ 100 100 / 100 mls/hr IV.SIG RUBBER FLAP CUTTER MATHEW Rx#: [id number] Oral 900 / 900 Anesthesia Amount 1999 Output: Urine 875 / 875 Estimated Blood Loss 50 / 50 Urine Amount (Catheter) 200 / 200 Indwelling Urethral Catheter 200 / 200 Gastric Drainage 400 / 400 Right Nare Nasogastric Tube 400 / 400 Other: # Voids 2 - Routine Abdominal Exam Present: soft, distended, wound - Urinary Catheter Management Indwelling Urethral Catheter Cath placed during this visit: yes Reason for continuing: Hourly intake/output Insertion date: 06/03/18 Insertion time: 13:42 Results - Labs 06/04/18 04:32 06/04/18 04:32 Laboratory Results - last 24 hr 06/03/18 06/03/18 06/04/18 12:23 12:23 04:32 WBC RBC Hgb Hct MCV MCH MCHC RDW Plt Count MPV Neut % (Auto) Lymph % (Auto) [place] % (Auto) Eos % (Auto) Baso % (Auto) Neut # (Auto) Lymph # (Auto) [place] # (Auto) Eos # (Auto) Baso # (Auto) WBC Differential Differential Comment PT INR Sodium 146 H Potassium 4.1 Chloride 114 H Carbon Dioxide 22.1 Anion Gap 10 BUN 9 Creatinine 0.98 Estimated GFR 74 L Random Glucose 106 Calcium 7.5 L Phosphorus 2.2 L Magnesium 1.6 Total Bilirubin 0.4 AST 23 ALT 17 Alkaline Phosphatase 61 Total Protein 6.2 L D Albumin 2.7 L TSH 1.020 Free T4 1.01 Blood Type O Positive Blood Type Recheck Required Antibody Screen Negative MTS Gel Crossmatch See Detail 06/04/18 06/04/18 04:32 04:32 WBC 8.3 RBC 3.59 L Hgb 8.6 L Hct 27.2 L MCV 75.9 L MCH 24.0 L MCHC 31.7 L RDW 19.6 H Plt Count 207 MPV 7.3 Neut % (Auto) 74.3 H Lymph % (Auto) 15.8 [place] % (Auto) 9.7 H Eos % (Auto) 0.0 Baso % (Auto) 0.2 Neut # (Auto) 6.2 Lymph # (Auto) 1.3 [place] # (Auto) 0.8 Eos # (Auto) 0.0 Baso # (Auto) 0.0 WBC Differential . Differential Comment Auto diff final PT 13.7 H INR 1.4 Sodium Potassium Chloride Carbon Dioxide Anion Gap BUN Creatinine Estimated GFR Random Glucose Calcium Phosphorus Magnesium Total Bilirubin AST ALT Alkaline Phosphatase Total Protein Albumin TSH Free T4 Blood Type Blood Type Recheck Antibody Screen MTS Gel Crossmatch - Imaging Imaging: ITS Impressions Abdomen/Pelvis CT 05/30/18 19:10 CONCLUSION: 1. Multiple loops of thickened small bowel in the mid and distal portion most characteristic of an enteritis. Mild dilatation of proximal small bowel likely from associated ileus. There is gas within the partially decompressed colon. 2. Nonobstructing small lower pole left renal calculus. Calcified gallstone. Mild fatty liver. Abdomen X-Ray 06/03/18 00:00 CONCLUSION: 1. Bowel gas pattern is consistent with persistent small bowel obstruction versus severe adynamic ileus. Assessment and Plan - Assessment (1) Abdominal pain Code(s): R10.9 - Unspecified abdominal pain Status: Acute (2) Colon cancer Code(s): C18.9 - Malignant neoplasm of colon, unspecified Status: Acute - Plan POD 1 RIGHT colectomy OOB [place] PT FU CBC tomorrow - low HgB likely dilutional as he is positive 3L from surgery yesterday. Will follow UOP and VS May clamp NG for meds but will need LWS for several days as I expect prolonged ileus (2) Colon cancer Qualifiers: Colon location: ascending Qualified Code(s): C18.2 - Malignant neoplasm of ascending colon
[2018-06-04] MEDS: Phenytoin Sodium 100 MG Capsule PO SCH ×3 (11:00→21:39)
[2018-06-04] MEDS: Sodium Chloride 0.9% 2 ML Flush BID IV.FLUSH SCH ×3 (11:01→21:39)
[2018-06-04] MEDS: CLORAZEPATE PO SCH (11:05)
[2018-06-04] MEDS: Atenolol 50 MG Tablet PO SCH (11:08)
--- NOTE | 2018-06-04 13:45 | P.PNIM ---
Subjective Interval history: 78-year-old male with a past medical history significant for newly diagnosed colon cancer, seizure disorder and hypertension presents to the emergency department with a 4-day history of constipation with abdominal pain and bloating. The patient reports at 3 AM this morning he had severe abdominal pain and bloating. He took a Dulcolax which worsened his symptoms. He then reports multiple episodes of nonbloody nonbilious emesis that have continued throughout the day. He denies any chest pain or shortness of breath. No fever/ chills. No lateralizing signs/symptoms. 05-31 Follow-up for abdominal pain, ileus versus small bowel obstruction, recent diagnosis of colon cancer-patient seen and examined, complains of right abdomen pain, no BM times a week. No nausea and no vomiting since yesterday. No chest pain, no shortness of breath. No fever overnight. Family at bedside. Spoke to Dr. Diez this morning, possible surgery next week. 06-01 Follow-up enteritis mild ileus/colon cancer?/Constipation June 01, 2018-patient seen and examined, no BM times 6 days, currently n.p.o. times 3 days. States he is passing out gas. Case discussed with patient and his 06-02 Follow-up enteritis mild ileus/colon cancer?/Constipation 06/02: Seen in his bedroom discussed with nurse Miss Fregoso, patient walking at this time with his as per General Surgery Ileus versus Obstruction, okay for sips of clears, Enema , Small bowel follow through if no improvement. no nausea at this time, but had one episode of vomit early in the morning today. 06-[address] DIEZ TODAY LAPAROSCOPIC-ASSISTED RIGHT HEMICOLECTOMY BY DR WILFRID DIEZ ON 06-03 FOR OBSTRUCTING RIGHT COLON CANCER 06-04 HAS NGT STILL POSITIVE HICCUPS HAVING ICE CHIPS DW RN AND PT AND FAMILY AM LABS Physical Exam Vital signs: Vital Signs 06/03/18 15:43 06/03/18 15:45 06/03/18 16:00 Temperature 99 F 99 F 98.7 F Pulse Rate 88 90 86 Respiratory Rate 14 14 14 Blood Pressure 141/65 H 139/63 128/60 Pulse Oximetry 92 L 90 L 93 L 06/03/18 16:15 06/03/18 16:30 06/03/18 16:45 Temperature 98.7 F 98.7 F 98.7 F Pulse Rate 82 78 78 Respiratory Rate 16 14 14 Blood Pressure 136/63 140/60 140/60 Pulse Oximetry 94 L 96 96 06/03/18 19:24 06/03/18 19:32 06/03/18 20:00 Temperature 97.7 F Pulse Rate 93 H Respiratory Rate 23 18 Blood Pressure 148/68 H Pulse Oximetry 96 94 L 06/04/18 00:00 06/04/18 01:22 06/04/18 04:00 Temperature 98.7 F 97.1 F L Pulse Rate 89 88 Respiratory Rate 18 18 18 Blood Pressure 136/61 161/70 H Pulse Oximetry 94 L 95 06/04/18 08:00 06/04/18 11:51 06/04/18 12:17 Temperature 97.1 F L 99.4 F 100.3 F H Pulse Rate 88 84 75 Respiratory Rate 18 18 18 Blood Pressure 160/72 H 148/65 H 149/65 H Pulse Oximetry 94 L 97 97 Intake & Output 06/03/18 06/04/18 06/04/18 18:59 06:59 18:59 Intake Total 3504 / 3504 2596 / 2596 1000 / 1000 Output Total 250 / 250 1275 / 1275 Balance 3254 / 3254 1321 / 1321 1000 / 1000 Weight 80.1 kg Intake: IV 1504 / 1504 1696 / 1696 1000 / 1000 NS Inj 1,000 ML @ 150 mls/hr IV 1304 / 1304 1696 / 1696 1000 / 1000 .CONT .Q6H40M MATHEW Rx#:[id number] Levaquin 500 mg Premix Inj 500 100 / 100 mg In 100 ml @ 100 mls/hr IV. SIG BUCKLE WIRE INSERTER MATHEW Rx#:[id number] Flagyl 500 MG Inj 100 ML @ 100 100 / 100 mls/hr IV.SIG BUCKLE WIRE INSERTER MATHEW Rx#: [id number] Oral 900 / 900 Anesthesia Amount 1999 / 1999 Output: Urine 875 / 875 Estimated Blood Loss 50 / 50 Urine Amount (Catheter) 200 / 200 Indwelling Urethral Catheter 200 / 200 Gastric Drainage 400 / 400 Right Nare Nasogastric Tube 400 / 400 Other: # Voids 2 Date of Last Bowel Movement 05/25/18 Narrative: General: No acute distress. Head: Normocephalic. Atraumatic. EENT: Pupils equal round and reactive to light. Nose without drainage. Airway intact. Throat without injection.NGT IN PLACE Cardiovascular: Regular rate and rhythm. No murmurs, rubs or gallops. S1, S2 NO S3 OR S4 Respiratory: Lungs clear to auscultation bilaterally. No wheezes or rhonchi. Abdomen: Distended. Tender to palpation to right upper and right lower quadrant. No peritoneal signs. Hypoactive bowel sounds. DRESSED Musculoskeletal: No gross deformities. No edema. Skin: No obvious rashes or erythema. Neuro: Awake, alert oriented x3. No focal deficits. - Urinary Catheter Management Indwelling Urethral Catheter Cath placed during this visit: yes, but has since been removed by the nurse Reason for continuing: Decision to DC catheter Insertion date: 06/03/18 Insertion time: 13:42 Removal date: 06/04/18 Removal time: 11:00 Results - Labs CBC & Chem 7: 06/04/18 04:32 06/04/18 04:32 Laboratory Results - last 24 hr 06/03/18 06/03/18 06/04/18 12:23 12:23 04:32 WBC RBC Hgb Hct MCV MCH MCHC RDW Plt Count MPV Neut % (Auto) Lymph % (Auto) [place] % (Auto) Eos % (Auto) Baso % (Auto) Neut # (Auto) Lymph # (Auto) [place] # (Auto) Eos # (Auto) Baso # (Auto) WBC Differential Differential Comment PT INR Sodium 146 H Potassium 4.1 Chloride 114 H Carbon Dioxide 22.1 Anion Gap 10 BUN 9 Creatinine 0.98 Estimated GFR 74 L Random Glucose 106 Calcium 7.5 L Phosphorus 2.2 L Magnesium 1.6 Total Bilirubin 0.4 AST 23 ALT 17 Alkaline Phosphatase 61 Total Protein 6.2 L D Albumin 2.7 L TSH 1.020 Free T4 1.01 Blood Type O Positive Blood Type Recheck Required Antibody Screen Negative MTS Gel Crossmatch See Detail 06/04/18 06/04/18 04:32 04:32 WBC 8.3 RBC 3.59 L Hgb 8.6 L Hct 27.2 L MCV 75.9 L MCH 24.0 L MCHC 31.7 L RDW 19.6 H Plt Count 207 MPV 7.3 Neut % (Auto) 74.3 H Lymph % (Auto) 15.8 [place] % (Auto) 9.7 H Eos % (Auto) 0.0 Baso % (Auto) 0.2 Neut # (Auto) 6.2 Lymph # (Auto) 1.3 [place] # (Auto) 0.8 Eos # (Auto) 0.0 Baso # (Auto) 0.0 WBC Differential . Differential Comment Auto diff final PT 13.7 H INR 1.4 Sodium Potassium Chloride Carbon Dioxide Anion Gap BUN Creatinine Estimated GFR Random Glucose Calcium Phosphorus Magnesium Total Bilirubin AST ALT Alkaline Phosphatase Total Protein Albumin TSH Free T4 Blood Type Blood Type Recheck Antibody Screen MTS Gel Crossmatch - Imaging ITS Impressions Abdomen/Pelvis CT 05/30/18 19:10 CONCLUSION: 1. Multiple loops of thickened small bowel in the mid and distal portion most characteristic of an enteritis. Mild dilatation of proximal small bowel likely from associated ileus. There is gas within the partially decompressed colon. 2. Nonobstructing small lower pole left renal calculus. Calcified gallstone. Mild fatty liver. Abdomen X-Ray 06/03/18 00:00 CONCLUSION: 1. Bowel gas pattern is consistent with persistent small bowel obstruction versus severe adynamic ileus. - Procedures DATE OF OPERATION: 06/03/2018 PREOPERATIVE DIAGNOSIS: Obstructing right colon cancer. POSTOPERATIVE DIAGNOSES: 1. Obstructing right colon cancer. 2. He has bilateral inguinal hernias. PROCEDURE: Laparoscopic-assisted right hemicolectomy. SURGEON: Wilfrid Diez MD Assessment and Plan - Assessment (1) Abdominal pain Code(s): R10.9 - Unspecified abdominal pain Status: Acute (2) Colon cancer Code(s): C18.9 - Malignant neoplasm of colon, unspecified Status: Acute (3) Seizure disorder Code(s): G40.909 - Epilepsy, unspecified, not intractable, without status epilepticus Status: Chronic (4) HTN (hypertension) Code(s): I10 - Essential (primary) hypertension Status: Chronic - Plan 78-year-old man with Ileus versus Obstruction General Surgery Ileus versus Obstruction, okay for sips of clears, Enema, Small bowel follow through if no improvement. no nausea at this time, but had one episode of vomit early in the morning today. SP SURGERY TODAY 06-03 laparoscopic assisted right hemicolectomy -N.p.o. per surgery status post surgery today with laparoscopic assisted right hemicolectomy Has NG tube in place 1. Obstructing right colon cancer. PROCEDURE: Laparoscopic-assisted right hemicolectomy. 06-03 Right Colon cancer Patient diagnosed approximately 1 month ago at [facility], saw Dr. Lynn Records obtained, had colonoscopy which showed right: Large circumferential obstructing mass cephalad to hepatic flexure, possibly proximal most ascending invasive or involving cecum Pathology positive for invasive adenocarcinoma moderately differentiated Was scheduled for PET scan next week Has a laparoscopic-assisted right hemicolectomy June 03 Hypertension -Currently on atenolol Seizure disorder -continue Dilantin and Tranxene Seizure precautions SCDs for DVT prophylaxis Code Status: FULL CODE Discussed Condition With: RN AND PT AND FAMILY Discharge Planning: Once cleared and tolerating a diet per surgery (2) Colon cancer Qualifiers: Colon location: ascending Qualified Code(s): C18.2 - Malignant neoplasm of ascending colon (4) HTN (hypertension) Qualifiers: Hypertension type: essential hypertension Qualified Code(s): I10 - Essential (primary) hypertension
[2018-06-04 17:58] LABS: Hemoglobin A1c 5.8 % (4.3-6.0)
[2018-06-04] MEDS: Pantoprazole Inj 40 MG Vial IV.SIG SCH ×3 (18:14→21:39)
[2018-06-04] MEDS: CLORAZEPATE 3.75 MG PO SCH (21:39)
[2018-06-05] MEDS: Sod Chloride 0.9% Inj 1,000 ML IV.CONT SCH (04:16)
--- NOTE | 2018-06-05 08:32 | P.PNGS ---
Subjective Patient reports: feels better, pain is less, flatus, no bowel movement, afebrile Physical Exam Vital signs: Vital Signs 06/04/18 11:51 06/04/18 12:17 06/04/18 15:37 Temperature 99.4 F 100.3 F H 98.5 F Pulse Rate 84 75 86 Respiratory Rate 18 18 17 Blood Pressure 148/65 H 149/65 H 190/85 H Pulse Oximetry 97 97 97 06/04/18 20:00 06/04/18 21:34 06/04/18 21:37 Temperature 97.5 F L Pulse Rate 99 H Respiratory Rate 18 18 20 Blood Pressure 170/72 H Pulse Oximetry 90 L 06/04/18 23:20 06/05/18 00:00 06/05/18 01:41 Temperature 102.6 F H 98.9 F Pulse Rate 110 H 110 H 100 H Respiratory Rate 24 19 16 Blood Pressure 177/84 H 130/61 Pulse Oximetry 94 L 86 L 95 06/05/18 03:02 06/05/18 03:06 06/05/18 04:09 Temperature 98.8 F Pulse Rate 83 83 Respiratory Rate 18 16 20 Blood Pressure 109/53 L Pulse Oximetry 94 L Intake & Output 06/04/18 06/05/18 06/05/18 18:59 06:59 18:59 Intake Total 1999 1600 / 1600 Output Total 1700 / 1700 200 / 200 Balance 300 / 300 1400 / 1400 Weight 80.1 kg Intake: IV 1999 1100 / 1100 NS Inj 1,000 ML @ 50 mls/hr IV. 1999 1000 / 1000 CONT .Q20H MATHEW Rx#:[id number] Ofirmev Inj 1,000 mg In 100 ml 100 / 100 @ 400 mls/hr IV.SIG ONCE ONE Rx #:[id number] Oral 500 / 500 Output: Urine 400 / 400 200 / 200 Gastric Drainage 1300 / 1300 Right Nare Nasogastric Tube 1300 / 1300 Other: Date of Last Bowel Movement 05/25/18 - Routine Abdominal Exam Present: soft, tenderness, distended, surgical scars, wound - Urinary Catheter Management Indwelling Urethral Catheter Cath placed during this visit: yes, but has since been removed by the nurse Reason for continuing: Decision to DC catheter Insertion date: 06/03/18 Insertion time: 13:42 Removal date: 06/04/18 Removal time: 11:00 Results - Labs 06/04/18 04:32 06/04/18 04:32 Laboratory Results - last 24 hr 06/04/18 04:32 Hemoglobin A1c 5.8 - Imaging Imaging: ITS Impressions Abdomen/Pelvis CT 05/30/18 19:10 CONCLUSION: 1. Multiple loops of thickened small bowel in the mid and distal portion most characteristic of an enteritis. Mild dilatation of proximal small bowel likely from associated ileus. There is gas within the partially decompressed colon. 2. Nonobstructing small lower pole left renal calculus. Calcified gallstone. Mild fatty liver. Abdomen X-Ray 06/03/18 00:00 CONCLUSION: 1. Bowel gas pattern is consistent with persistent small bowel obstruction versus severe adynamic ileus. Assessment and Plan - Assessment (1) Abdominal pain Code(s): R10.9 - Unspecified abdominal pain Status: Acute (2) Colon cancer Code(s): C18.9 - Malignant neoplasm of colon, unspecified Status: Acute - Plan POD 2 RIGHT colectomy OOB PT, ambulate FU CBC - low HgB likely dilutional as he is positive 3L from surgery. Will follow UOP and VS May clamp NG for meds but will need LWS for several days as I expect prolonged ileus NG output high as expected. Watch I&Os Labs pending this am. (2) Colon cancer Qualifiers: Colon location: ascending Qualified Code(s): C18.2 - Malignant neoplasm of ascending colon
[2018-06-05 08:36] LABS: Baso # (Auto) 0.1 th/mm3 (0.0-0.2); Baso % (Auto) 0.7 % (0.0-2.0); Eos % (Auto) 0.2 % (0.0-4.0); Hematocrit 30.9 % (39.0-51.0); Hemoglobin 9.4 gm/dL (13.0-17.0); Lymph # (Auto) 1.3 th/mm3 (1.0-4.8); Lymph % (Auto) 12.7 % (9.0-44.0); Mean Corpuscular Hemoglobin 23.6 pg (27.0-34.0); Mean Corpuscular Volume 77.8 fL (80.0-100.0); Mean Platelet Volume 7.6 fL (7.0-11.0); Mono # (Auto) 0.8 th/mm3 (0.0-0.9); Mono % (Auto) 8.1 % (0.0-8.0); Neut # (Auto) 8.1 th/mm3 (1.8-7.7); Neut % (Auto) 78.3 % (16.0-70.0); Platelet Count 199 th/mm3 (150-450); Red Blood Count 3.97 mil/mm3 (4.50-5.90); Red Cell Distribution Width 19.9 % (11.6-17.2); White Blood Count 10.3 th/mm3 (4.0-11.0)
[2018-06-05 08:43] LABS: Mean Corpuscular HGB Conc 30.4 % (32.0-36.0)
[2018-06-05 08:58] LABS: Albumin 2.6 g/dL (3.4-5.0); Anion Gap 8 meq/L (5-15); Aspartate Aminotransferase 25 U/L (15-37); Blood Urea Nitrogen 11 mg/dL (7-18); Carbon Dioxide 23.9 meq/L (21.0-32.0); Chloride 113 meq/L (98-107); Glomerular Filtration Rate Greater Than 89 mL/min (>89); Glucose,Random 85 mg/dL (74-106); Potassium 3.7 meq/L (3.5-5.1); Sodium 145 meq/L (136-145)
[2018-06-05 09:00] LABS: Alanine Aminotransferase 20 U/L (12-78); Phosphorus 1.5 mg/dL (2.5-4.9)
[2018-06-05 09:02] LABS: Alkaline Phosphatase 67 U/L (45-117); Total Protein 6.5 g/dL (6.4-8.2)
[2018-06-05 09:33] LABS: Eosinophils 1 % (0-4); Lymphocytes 10 % (9-44); Monocytes 5 % (0-8); Tallied Nucleated RBC 1 (0-0)
[2018-06-05 09:34] LABS: Platelet Estimate Normal (Normal); Platelet Morphology Normal (Normal)
[2018-06-05] MEDS: Phenytoin Sodium 100 MG Capsule PO SCH ×2 (12:11→20:23)
[2018-06-05] MEDS: CLORAZEPATE PO SCH (12:12)
[2018-06-05] MEDS: Sodium Chloride 0.9% 2 ML Flush BID IV.FLUSH SCH ×2 (12:12→20:27)
[2018-06-05] MEDS: Pantoprazole Inj 40 MG Vial IV.SIG SCH ×2 (12:12→20:25)
[2018-06-05] MEDS: Atenolol 50 MG Tablet PO SCH (12:12)
--- NOTE | 2018-06-05 13:32 | P.PNIM ---
Subjective Interval history: 78-year-old male with a past medical history significant for newly diagnosed colon cancer, seizure disorder and hypertension presents to the emergency department with a 4-day history of constipation with abdominal pain and bloating. The patient reports at 3 AM this morning he had severe abdominal pain and bloating. He took a Dulcolax which worsened his symptoms. He then reports multiple episodes of nonbloody nonbilious emesis that have continued throughout the day. He denies any chest pain or shortness of breath. No fever/ chills. No lateralizing signs/symptoms. 05-31 Follow-up for abdominal pain, ileus versus small bowel obstruction, recent diagnosis of colon cancer-patient seen and examined, complains of right abdomen pain, no BM times a week. No nausea and no vomiting since yesterday. No chest pain, no shortness of breath. No fever overnight. Family at bedside. Spoke to Dr. Diez this morning, possible surgery next week. 06-01 Follow-up enteritis mild ileus/colon cancer?/Constipation June 01, 2018-patient seen and examined, no BM times 6 days, currently n.p.o. times 3 days. States he is passing out gas. Case discussed with patient and his 06-02 Follow-up enteritis mild ileus/colon cancer?/Constipation 06/02: Seen in his bedroom discussed with nurse Miss Fregoso, patient walking at this time with his as per General Surgery Ileus versus Obstruction, okay for sips of clears, Enema , Small bowel follow through if no improvement. no nausea at this time, but had one episode of vomit early in the morning today. 06-[address] DIEZ TODAY LAPAROSCOPIC-ASSISTED RIGHT HEMICOLECTOMY BY DR WILFRID DIEZ ON 06-03 FOR OBSTRUCTING RIGHT COLON CANCER 06-04 HAS NGT STILL POSITIVE HICCUPS HAVING ICE CHIPS DW RN AND PT AND FAMILY AM LABS 06-05 STILL HAD SOME ABDOMINAL PAIN LAST NIGHT STILL USING SAFETY TECHNICIAN DW RN AND PT AND FAMILY AND CM VERY SLOW PROGRESS AM LABS Physical Exam Vital signs: Vital Signs 06/04/18 15:37 06/04/18 20:00 06/04/18 21:34 Temperature 98.5 F 97.5 F L Pulse Rate 86 99 H Respiratory Rate 17 18 18 Blood Pressure 190/85 H 170/72 H Pulse Oximetry 97 90 L 06/04/18 21:37 06/04/18 23:20 06/05/18 00:00 Temperature 102.6 F H Pulse Rate 110 H 110 H Respiratory Rate 20 24 19 Blood Pressure 177/84 H Pulse Oximetry 94 L 86 L 06/05/18 01:41 06/05/18 03:02 06/05/18 03:06 Temperature 98.9 F 98.8 F Pulse Rate 100 H 83 83 Respiratory Rate 16 18 16 Blood Pressure 130/61 109/53 L Pulse Oximetry 95 94 L 06/05/18 04:09 06/05/18 08:00 06/05/18 12:00 Temperature 97.4 F L 98.0 F Pulse Rate 76 69 Respiratory Rate 20 16 16 Blood Pressure 139/62 140/55 L Pulse Oximetry 99 97 Intake & Output 06/04/18 06/05/18 06/05/18 18:59 06:59 18:59 Intake Total 1999 / 1999 1600 / 1600 1000 / 1000 Output Total 1700 / 1700 200 / 200 Balance 300 / 300 1400 / 1400 1000 / 1000 Weight 80.1 kg Intake: IV 1999 / 1999 1100 / 1100 1000 / 1000 NS Inj 1,000 ML @ 50 mls/hr IV. 1999 / 1999 1000 / 1000 1000 / 1000 CONT .Q20H MATHEW Rx#:[id number] Ofirmev Inj 1,000 mg In 100 ml 100 / 100 @ 400 mls/hr IV.SIG ONCE ONE Rx #:[id number] Oral 500 / 500 Output: Urine 400 / 400 200 / 200 Gastric Drainage 1300 / 1300 Right Nare Nasogastric Tube 1300 / 1300 Other: Date of Last Bowel Movement 05/25/18 Narrative: General: No acute distress. Head: Normocephalic. Atraumatic. EENT: Pupils equal round and reactive to light. Nose without drainage. Airway intact. Throat without injection.NGT IN PLACE Cardiovascular: Regular rate and rhythm. No murmurs, rubs or gallops. S1, S2 NO S3 OR S4 Respiratory: Lungs clear to auscultation bilaterally. No wheezes or rhonchi. Abdomen: Distended. Tender to palpation to right upper and right lower quadrant. No peritoneal signs. Hypoactive bowel sounds. DRESSED Musculoskeletal: No gross deformities. No edema. Skin: No obvious rashes or erythema. Neuro: Awake, alert oriented x3. No focal deficits. - Urinary Catheter Management Indwelling Urethral Catheter Cath placed during this visit: yes, but has since been removed by the nurse Reason for continuing: Decision to DC catheter Insertion date: 06/03/18 Insertion time: 13:42 Removal date: 06/04/18 Removal time: 11:00 Results - Labs CBC & Chem 7: 06/05/18 07:20 06/05/18 07:20 Laboratory Results - last 24 hr 06/04/18 06/05/18 06/05/18 04:32 07:20 07:20 WBC 10.3 RBC 3.97 L Hgb 9.4 L Hct 30.9 L MCV 77.8 L MCH 23.6 L MCHC 30.4 L RDW 19.9 H Plt Count 199 MPV 7.6 Prelim Diff (Auto) Slide review pending Neut % (Auto) 78.3 H Lymph % (Auto) 12.7 [place] % (Auto) 8.1 H Eos % (Auto) 0.2 Baso % (Auto) 0.7 Neut # (Auto) 8.1 H Lymph # (Auto) 1.3 [place] # (Auto) 0.8 Eos # (Auto) 0.0 Baso # (Auto) 0.1 WBC Differential Manual diff final Seg Neuts % (Manual) 58 Band Neuts % (Manual) 26 H Lymphocytes % (Manual) 10 Monocytes % (Manual) 5 Eosinophils % (Manual) 1 Abs Neuts (Manual) 8.7 H Nucleated RBCs/100 WBC 1 H Differential Comment . Platelet Estimate Normal Platelet Morphology Normal Sodium 145 Potassium 3.7 Chloride 113 H Carbon Dioxide 23.9 Anion Gap 8 BUN 11 Creatinine 0.81 Estimated GFR Greater than 89 Random Glucose 85 Hemoglobin A1c 5.8 Calcium 8.0 L Phosphorus 1.5 L Magnesium 2.0 Total Bilirubin 0.4 AST 25 ALT 20 Alkaline Phosphatase 67 Total Protein 6.5 Albumin 2.6 L - Imaging ITS Impressions Abdomen/Pelvis CT 05/30/18 19:10 CONCLUSION: 1. Multiple loops of thickened small bowel in the mid and distal portion most characteristic of an enteritis. Mild dilatation of proximal small bowel likely from associated ileus. There is gas within the partially decompressed colon. 2. Nonobstructing small lower pole left renal calculus. Calcified gallstone. Mild fatty liver. Abdomen X-Ray 06/03/18 00:00 CONCLUSION: 1. Bowel gas pattern is consistent with persistent small bowel obstruction versus severe adynamic ileus. - Procedures DATE OF OPERATION: 06/03/2018 PREOPERATIVE DIAGNOSIS: Obstructing right colon cancer. POSTOPERATIVE DIAGNOSES: 1. Obstructing right colon cancer. 2. He has bilateral inguinal hernias. PROCEDURE: Laparoscopic-assisted right hemicolectomy. SURGEON: Wilfrid Diez MD Assessment and Plan - Assessment (1) Abdominal pain Code(s): R10.9 - Unspecified abdominal pain Status: Acute (2) Colon cancer Code(s): C18.9 - Malignant neoplasm of colon, unspecified Status: Acute (3) Seizure disorder Code(s): G40.909 - Epilepsy, unspecified, not intractable, without status epilepticus Status: Chronic (4) HTN (hypertension) Code(s): I10 - Essential (primary) hypertension Status: Chronic - Plan 78-year-old man with Ileus versus Obstruction General Surgery Ileus versus Obstruction, okay for sips of clears, Enema, Small bowel follow through if no improvement. no nausea at this time, but had one episode of vomit early in the morning today. HAD OBSTRUCTION DUE TO TUMOR SP SURGERY TODAY 06-03 laparoscopic assisted right hemicolectomy -N.p.o. per surgery status post surgery today with laparoscopic assisted right hemicolectomy Has NG tube in place 1. Obstructing right colon cancer. PROCEDURE: Laparoscopic-assisted right hemicolectomy. 06-03 Right Colon cancer Patient diagnosed approximately 1 month ago at [facility], saw Dr. Lynn Records obtained, had colonoscopy which showed right: Large circumferential obstructing mass cephalad to hepatic flexure, possibly proximal most ascending invasive or involving cecum Pathology positive for invasive adenocarcinoma moderately differentiated Was scheduled for PET scan next week Has a laparoscopic-assisted right hemicolectomy June 03 Hypertension -Currently on atenolol Seizure disorder -continue Dilantin and Tranxene Seizure precautions SCDs for DVT prophylaxis PAIN CONTROL NEEDED VERY SLOW PROGRESS PT AND OT Code Status: FULL CODE Discussed Condition With: GABRIEL RN AND PT AND FAMILY AND CM Discharge Planning: Once cleared and tolerating a diet per surgery (2) Colon cancer Qualifiers: Colon location: ascending Qualified Code(s): C18.2 - Malignant neoplasm of ascending colon (4) HTN (hypertension) Qualifiers: Hypertension type: essential hypertension Qualified Code(s): I10 - Essential (primary) hypertension
[2018-06-05] MEDS: CLORAZEPATE 3.75 MG PO SCH (20:24)
[2018-06-06 07:32] LABS: Baso % (Auto) 0.4 % (0.0-2.0); Hematocrit 29.4 % (39.0-51.0); Lymph # (Auto) 1.3 th/mm3 (1.0-4.8); Lymph % (Auto) 10.8 % (9.0-44.0); Mean Corpuscular Hemoglobin 23.3 pg (27.0-34.0); Mean Corpuscular Volume 76.3 fL (80.0-100.0); Mean Platelet Volume 7.4 fL (7.0-11.0); Mono # (Auto) 0.8 th/mm3 (0.0-0.9); Mono % (Auto) 6.2 % (0.0-8.0); Neut % (Auto) 82.6 % (16.0-70.0); Platelet Count 218 th/mm3 (150-450); Red Blood Count 3.85 mil/mm3 (4.50-5.90); Red Cell Distribution Width 19.8 % (11.6-17.2); White Blood Count 12.1 th/mm3 (4.0-11.0)
[2018-06-06 07:43] LABS: Alanine Aminotransferase 18 U/L (12-78); Albumin 2.6 g/dL (3.4-5.0); Anion Gap 14 meq/L (5-15); Aspartate Aminotransferase 23 U/L (15-37); Blood Urea Nitrogen 12 mg/dL (7-18); Calcium 7.7 mg/dL (8.5-10.1); Chloride 114 meq/L (98-107); Glomerular Filtration Rate Greater Than 89 mL/min (>89); Glucose,Random 100 mg/dL (74-106); Magnesium 1.9 mg/dL (1.5-2.5); Phosphorus 1.3 mg/dL (2.5-4.9); Potassium 3.7 meq/L (3.5-5.1); Sodium 149 meq/L (136-145)
[2018-06-06 07:45] LABS: Alkaline Phosphatase 62 U/L (45-117); Total Protein 6.1 g/dL (6.4-8.2)
[2018-06-06 07:54] LABS: Mean Corpuscular HGB Conc 30.6 % (32.0-36.0)
[2018-06-06] MEDS: Phenytoin Sodium 100 MG Capsule PO SCH ×2 (09:06→20:19)
[2018-06-06] MEDS: Atenolol 50 MG Tablet PO SCH (09:06)
[2018-06-06] MEDS: Pantoprazole Inj 40 MG Vial IV.SIG SCH ×2 (09:07→20:19)
[2018-06-06] MEDS: Sod Chloride 0.9% Inj 1,000 ML IV.CONT SCH (09:14)
[2018-06-06] MEDS: CLORAZEPATE PO SCH (09:15)
[2018-06-06] MEDS: Sodium Chloride 0.9% 2 ML Flush BID IV.FLUSH SCH ×2 (10:12→20:20)
--- NOTE | 2018-06-06 12:31 | P.PNIM ---
Subjective Interval history: 78-year-old male with a past medical history significant for newly diagnosed colon cancer, seizure disorder and hypertension presents to the emergency department with a 4-day history of constipation with abdominal pain and bloating. The patient reports at 3 AM this morning he had severe abdominal pain and bloating. He took a Dulcolax which worsened his symptoms. He then reports multiple episodes of nonbloody nonbilious emesis that have continued throughout the day. He denies any chest pain or shortness of breath. No fever/ chills. No lateralizing signs/symptoms. 05-31 Follow-up for abdominal pain, ileus versus small bowel obstruction, recent diagnosis of colon cancer-patient seen and examined, complains of right abdomen pain, no BM times a week. No nausea and no vomiting since yesterday. No chest pain, no shortness of breath. No fever overnight. Family at bedside. Spoke to Dr. Diez this morning, possible surgery next week. 06-01 Follow-up enteritis mild ileus/colon cancer?/Constipation June 01, 2018-patient seen and examined, no BM times 6 days, currently n.p.o. times 3 days. States he is passing out gas. Case discussed with patient and his 06-02 Follow-up enteritis mild ileus/colon cancer?/Constipation 06/02: Seen in his bedroom discussed with nurse Miss Fregoso, patient walking at this time with his as per General Surgery Ileus versus Obstruction, okay for sips of clears, Enema , Small bowel follow through if no improvement. no nausea at this time, but had one episode of vomit early in the morning today. 06-[address] DIEZ TODAY LAPAROSCOPIC-ASSISTED RIGHT HEMICOLECTOMY BY DR WILFRID DIEZ ON 06-03 FOR OBSTRUCTING RIGHT COLON CANCER 06-04 HAS NGT STILL POSITIVE HICCUPS HAVING ICE CHIPS DW RN AND PT AND FAMILY AM LABS 06-05 STILL HAD SOME ABDOMINAL PAIN LAST NIGHT STILL USING BOILER INSPECTOR DW RN AND PT AND FAMILY AND CM VERY SLOW PROGRESS AM LABS 06-06 PULLED HIS NGT OUT DW SURGEON INCREASE ACTIVITY DIET PER SURGERY AM LABS Physical Exam Vital signs: Vital Signs 06/05/18 14:00 06/05/18 15:43 06/05/18 16:00 Temperature 97.8 F Pulse Rate 80 Respiratory Rate 16 Blood Pressure 145/66 H Pulse Oximetry 96 96 97 06/05/18 20:00 06/06/18 00:00 06/06/18 04:00 Temperature 98.7 F 98.1 F 98.2 F Pulse Rate 88 92 H 84 Respiratory Rate 16 17 17 Blood Pressure 122/57 L 119/77 152/78 H Pulse Oximetry 94 L 95 98 06/06/18 07:47 06/06/18 10:54 Temperature 97.9 F Pulse Rate 87 Respiratory Rate 16 Blood Pressure 158/89 H Pulse Oximetry 98 97 Intake & Output 06/05/18 06/06/18 06/06/18 18:59 06:59 18:59 Intake Total 1000 / 1000 300 / 300 200 / 200 Output Total 300 / 300 950 / 950 Balance 700 / 700 300 / 300 -750 / -750 Weight 82.5 kg Intake: IV 1000 / 1000 200 / 200 NS Inj 1,000 ML @ 50 mls/hr IV. 1000 / 1000 200 / 200 CONT .Q20H MATHEW Rx#:[id number] Oral 0 / 0 300 / 300 Output: Urine 700 / 700 Gastric Drainage 300 / 300 250 / 250 Right Nare Nasogastric Tube 300 / 300 250 / 250 Other: # Voids 4 4 # Bowel Movements 1 Narrative: General: No acute distress. Head: Normocephalic. Atraumatic. EENT: Pupils equal round and reactive to light. Nose without drainage. Airway intact. Throat without injection.NGT IN PLACE Cardiovascular: Regular rate and rhythm. No murmurs, rubs or gallops. S1, S2 NO S3 OR S4 Respiratory: Lungs clear to auscultation bilaterally. No wheezes or rhonchi. Abdomen: LESS Distended. LESS Tender to palpation to right upper and right lower quadrant. No peritoneal signs. LESS Hypoactive bowel sounds. DRESSED Musculoskeletal: No gross deformities. No edema. Skin: No obvious rashes or erythema. Neuro: Awake, alert oriented x3. No focal deficits. - Urinary Catheter Management Indwelling Urethral Catheter Cath placed during this visit: yes, but has since been removed by the nurse Reason for continuing: Decision to DC catheter Insertion date: 06/03/18 Insertion time: 13:42 Removal date: 06/04/18 Removal time: 11:00 Results - Labs CBC & Chem 7: 06/06/18 06:25 06/06/18 06:25 Laboratory Results - last 24 hr 06/03/18 06/06/18 06/06/18 12:23 06:25 06:25 WBC 12.1 H RBC 3.85 L Hgb 9.0 L Hct 29.4 L MCV 76.3 L MCH 23.3 L MCHC 30.6 L RDW 19.8 H Plt Count 218 MPV 7.4 Neut % (Auto) 82.6 H Lymph % (Auto) 10.8 [place] % (Auto) 6.2 Eos % (Auto) 0.0 Baso % (Auto) 0.4 Neut # (Auto) 10.0 H Lymph # (Auto) 1.3 [place] # (Auto) 0.8 Eos # (Auto) 0.0 Baso # (Auto) 0.0 WBC Differential . Differential Comment Auto diff final Sodium 149 H Potassium 3.7 Chloride 114 H Carbon Dioxide 21.0 Anion Gap 14 BUN 12 Creatinine 0.64 Estimated GFR Greater than 89 Random Glucose 100 Calcium 7.7 L Phosphorus 1.3 L Magnesium 1.9 Total Bilirubin 0.4 AST 23 ALT 18 Alkaline Phosphatase 62 Total Protein 6.1 L Albumin 2.6 L MTS Gel Crossmatch See Detail - Imaging ITS Impressions Abdomen/Pelvis CT 05/30/18 19:10 CONCLUSION: 1. Multiple loops of thickened small bowel in the mid and distal portion most characteristic of an enteritis. Mild dilatation of proximal small bowel likely from associated ileus. There is gas within the partially decompressed colon. 2. Nonobstructing small lower pole left renal calculus. Calcified gallstone. Mild fatty liver. Abdomen X-Ray 06/03/18 00:00 CONCLUSION: 1. Bowel gas pattern is consistent with persistent small bowel obstruction versus severe adynamic ileus. - Procedures DATE OF OPERATION: 06/03/2018 PREOPERATIVE DIAGNOSIS: Obstructing right colon cancer. POSTOPERATIVE DIAGNOSES: 1. Obstructing right colon cancer. 2. He has bilateral inguinal hernias. PROCEDURE: Laparoscopic-assisted right hemicolectomy. SURGEON: Wilfrid Diez MD Assessment and Plan - Assessment (1) Abdominal pain Code(s): R10.9 - Unspecified abdominal pain Status: Acute (2) Colon cancer Code(s): C18.9 - Malignant neoplasm of colon, unspecified Status: Acute (3) Seizure disorder Code(s): G40.909 - Epilepsy, unspecified, not intractable, without status epilepticus Status: Chronic (4) HTN (hypertension) Code(s): I10 - Essential (primary) hypertension Status: Chronic - Plan 78-year-old man with Ileus versus Obstruction General Surgery Ileus versus Obstruction, okay for sips of clears, Enema, Small bowel follow through if no improvement. no nausea at this time, but had one episode of vomit early in the morning today. HAD OBSTRUCTION DUE TO TUMOR SP SURGERY TODAY 06-03 laparoscopic assisted right hemicolectomy -N.p.o. per surgery status post surgery today with laparoscopic assisted right hemicolectomy Has NG tube in place 1. Obstructing right colon cancer. POSITIVE NODES ONCOLOGY WILL BE CONSULTED PROCEDURE: Laparoscopic-assisted right hemicolectomy. 06-03 Right Colon cancer Patient diagnosed approximately 1 month ago at [facility], saw Dr. Lynn Records obtained, had colonoscopy which showed right: Large circumferential obstructing mass cephalad to hepatic flexure, possibly proximal most ascending invasive or involving cecum Pathology positive for invasive adenocarcinoma moderately differentiated Was scheduled for PET scan next week Has a laparoscopic-assisted right hemicolectomy June 03 PATHOLOGY PATHOLOGIC STAGE CLASSIFICATION (pTNM, AJCC 8th Edition): PRIMARY TUMOR: pT3. REGIONAL LYMPH NODES: pN2a. TERMINAL ILEUM, COLON, AND APPENDIX, RIGHT HEMICOLECTOMY: - MODERATELY DIFFERENTIATED ADENOCARCINOMA OBLITERATING THE ILEOCECAL VALVE AND INVADING DILMA-COLONIC SOFT TISSUE. - METASTATIC ADENOCARCINOMA TO SIX OF TWELVE LYMPH NODES (6/12). - ONE DILMA-COLONIC TUMOR DEPOSIT. RESECTION MARGINS ARE NEGATIVE FOR MALIGNANCY Hypertension -Currently on atenolol Seizure disorder -continue Dilantin and Tranxene Seizure precautions SCDs for DVT prophylaxis PAIN CONTROL NEEDED VERY SLOW PROGRESS PT AND OT POSITIVE NODES CONSULT ONCOLOGY Code Status: FULL CODE Discussed Condition With: RN AND PT AND CM AND SURGERY Discharge Planning: Once cleared and tolerating a diet per surgery AND CLEARED BY SURGERY (2) Colon cancer Qualifiers: Colon location: ascending Qualified Code(s): C18.2 - Malignant neoplasm of ascending colon (4) HTN (hypertension) Qualifiers: Hypertension type: essential hypertension Qualified Code(s): I10 - Essential (primary) hypertension
--- NOTE | 2018-06-06 13:05 | P.PNGS ---
Subjective Patient reports: feels better, pain is less, tolerating liquids well, flatus, no bowel movement Physical Exam Vital signs: Vital Signs 06/05/18 14:00 06/05/18 15:43 06/05/18 16:00 Temperature 97.8 F Pulse Rate 80 Respiratory Rate 16 Blood Pressure 145/66 H Pulse Oximetry 96 96 97 06/05/18 20:00 06/06/18 00:00 06/06/18 04:00 Temperature 98.7 F 98.1 F 98.2 F Pulse Rate 88 92 H 84 Respiratory Rate 16 17 17 Blood Pressure 122/57 L 119/77 152/78 H Pulse Oximetry 94 L 95 98 06/06/18 07:47 06/06/18 10:54 06/06/18 12:00 Temperature 97.9 F 98.0 F Pulse Rate 87 83 Respiratory Rate 16 17 Blood Pressure 158/89 H 143/72 H Pulse Oximetry 98 97 93 L Intake & Output 06/05/18 06/06/18 06/06/18 18:59 06:59 18:59 Intake Total 1000 / 1000 300 / 300 200 / 200 Output Total 300 / 300 950 / 950 Balance 700 / 700 300 / 300 -750 / -750 Weight 82.5 kg Intake: IV 1000 / 1000 200 / 200 NS Inj 1,000 ML @ 50 mls/hr IV. 1000 / 1000 200 / 200 CONT .Q20H MATHEW Rx#:[id number] Oral 0 / 0 300 / 300 Output: Urine 700 / 700 Gastric Drainage 300 / 300 250 / 250 Right Nare Nasogastric Tube 300 / 300 250 / 250 Other: # Voids 4 4 # Bowel Movements 1 - Routine Abdominal Exam Present: soft, normoactive bowel sounds, surgical scars, wound - Urinary Catheter Management Indwelling Urethral Catheter Cath placed during this visit: yes, but has since been removed by the nurse Reason for continuing: Decision to DC catheter Insertion date: 06/03/18 Insertion time: 13:42 Removal date: 06/04/18 Removal time: 11:00 Results - Labs 06/06/18 06:25 06/06/18 06:25 Laboratory Results - last 24 hr 06/03/18 06/06/18 06/06/18 12:23 06:25 06:25 WBC 12.1 H RBC 3.85 L Hgb 9.0 L Hct 29.4 L MCV 76.3 L MCH 23.3 L MCHC 30.6 L RDW 19.8 H Plt Count 218 MPV 7.4 Neut % (Auto) 82.6 H Lymph % (Auto) 10.8 [place] % (Auto) 6.2 Eos % (Auto) 0.0 Baso % (Auto) 0.4 Neut # (Auto) 10.0 H Lymph # (Auto) 1.3 [place] # (Auto) 0.8 Eos # (Auto) 0.0 Baso # (Auto) 0.0 WBC Differential . Differential Comment Auto diff final Sodium 149 H Potassium 3.7 Chloride 114 H Carbon Dioxide 21.0 Anion Gap 14 BUN 12 Creatinine 0.64 Estimated GFR Greater than 89 Random Glucose 100 Calcium 7.7 L Phosphorus 1.3 L Magnesium 1.9 Total Bilirubin 0.4 AST 23 ALT 18 Alkaline Phosphatase 62 Total Protein 6.1 L Albumin 2.6 L MTS Gel Crossmatch See Detail - Imaging Imaging: ITS Impressions Abdomen/Pelvis CT 05/30/18 19:10 CONCLUSION: 1. Multiple loops of thickened small bowel in the mid and distal portion most characteristic of an enteritis. Mild dilatation of proximal small bowel likely from associated ileus. There is gas within the partially decompressed colon. 2. Nonobstructing small lower pole left renal calculus. Calcified gallstone. Mild fatty liver. Abdomen X-Ray 06/03/18 00:00 CONCLUSION: 1. Bowel gas pattern is consistent with persistent small bowel obstruction versus severe adynamic ileus. Assessment and Plan - Assessment (1) Abdominal pain Code(s): R10.9 - Unspecified abdominal pain Status: Acute (2) Colon cancer Code(s): C18.9 - Malignant neoplasm of colon, unspecified Status: Acute - Plan POD 3 RIGHT colectomy OOB PT, ambulate, OOB DC NG, sips of clears only Path shows full thickness lesion with 6/12 positive nodes. Will consult Oncology to see DC CAR STARTER, HL IVF (2) Colon cancer Qualifiers: Colon location: ascending Qualified Code(s): C18.2 - Malignant neoplasm of ascending colon
[2018-06-06] MEDS ORDERED: Chlorpromazine Inj 50 MG/2 ML Ampule IM ONE (13:30)
[2018-06-06] MEDS: CLORAZEPATE 3.75 MG PO SCH (20:20)
--- NOTE | 2018-06-06 23:15 | MB ---
cc: Krupa Davis MD DATE: 06/06/2018 CHIEF COMPLAINT: Stage III colon cancer. HISTORY OF PRESENT ILLNESS: The patient is a 78-year-old gentleman with a history of epilepsy, hypertension, who presented to the emergency room on 05/30/2018 with a 4-day history of constipation, abdominal pain and bloating. CT scan showed enteritis of the small bowel. He also has a history of a colon cancer and underwent EGD and colonoscopy at [facility]. He had been awaiting workup at the [place]. On 06/03/2018, he underwent laparoscopic-assisted right hemicolectomy under the direction of Dr. Benito Sylvester. Pathology report revealed 6.5 x 4.5 cm adenocarcinoma grade 2. Tumor invades through the muscularis propria into the pericolic soft tissue. All margins are uninvolved by invasive carcinoma. Lymphovascular invasion not present. 12 total lymph nodes examined and 6 lymph nodes involved by malignancy; pT3 N2a. REVIEW OF SYSTEMS: As above in the HPI. All others negative. PAST MEDICAL HISTORY: 1. Hypertension. 2. Epilepsy. 3. Colon cancer. PAST SURGICAL HISTORY: History of orthopedic surgery to his ankle, recent colon surgery. SOCIAL HISTORY: Denies tobacco, alcohol, or illegal drug use. He lives here in the [place] area; however, he receives most of his medical care at the [facility]. He has a strong support system with his family to include his and 3 adult children. FAMILY HISTORY: Significant for diabetes. He denies any known family history of malignancy. PHYSICAL EXAMINATION: VITAL SIGNS: Temperature 98.7, pulse 80, respiratory rate 17, blood pressure 134/66, pulse oximetry 94% on room air. GENERAL: Well-developed, well-nourished man in no distress. HEENT: Head is normocephalic, atraumatic. Eyes: PERRLA. EYES: EOMI. No scleral icterus. NECK: Supple. No palpable lymphadenopathy. Oropharynx is clear. CARDIOVASCULAR: Regular rate and rhythm. No murmurs. RESPIRATORY: Clear to auscultation bilaterally. ABDOMEN: Soft, nontender, nondistended. Bowel sounds present. EXTREMITIES: No edema. NEUROLOGIC: Grossly nonfocal. PSYCHIATRIC: Appropriate mood and affect. LABORATORY STUDIES: White blood cell count 12.1, hemoglobin 9, platelet count 218,000, MCV is 76.3. Chemistry studies with creatinine 0.64, total bilirubin 0.4, AST 23, ALT 18, alkaline phosphatase 62, total protein 6.1 and albumin is 2.6. IMPRESSION: 1. Stage IIIB colon cancer T3 N2a M0. Will complete staging workup with CT scan of the chest as well as CEA. A long discussion with the patient and family to include his and 3 adult children including daughter and 2 sons. Discussed treatment of stage III colon cancer. Discussed that this would include surgical resection followed by 6 months of adjuvant chemotherapy with FOLFOX followed by 5 years of surveillance. Discussed chemotherapy options. Discussed FOLFOX and side effects of this therapy. I have discussed port placement with Dr. Sylvester, approximately 6 weeks after the patient has healed from surgery. We will plan to initiate this in the outpatient setting. Dr. Sylvester will place a port. 2. Anemia, microcytosis. We will check iron studies. Inpatient oncology service will continue to follow. MD GRAY Moses/negrita , 09:37 PM , 09:45 PM
[2018-06-07 07:46] LABS: Baso # (Auto) 0.1 th/mm3 (0.0-0.2); Baso % (Auto) 0.7 % (0.0-2.0); Eos # (Auto) 0.2 th/mm3 (0.0-0.4); Hematocrit 27.8 % (39.0-51.0); Hemoglobin 8.6 gm/dL (13.0-17.0); Lymph # (Auto) 1.7 th/mm3 (1.0-4.8); Lymph % (Auto) 19.9 % (9.0-44.0); Mean Corpuscular Hemoglobin 23.4 pg (27.0-34.0); Mean Corpuscular Volume 76.1 fL (80.0-100.0); Mean Platelet Volume 7.1 fL (7.0-11.0); Mono # (Auto) 0.6 th/mm3 (0.0-0.9); Mono % (Auto) 7.7 % (0.0-8.0); Neut # (Auto) 5.8 th/mm3 (1.8-7.7); Neut % (Auto) 69.7 % (16.0-70.0); Platelet Count 207 th/mm3 (150-450); Red Blood Count 3.65 mil/mm3 (4.50-5.90); Red Cell Distribution Width 19.4 % (11.6-17.2); White Blood Count 8.4 th/mm3 (4.0-11.0)
[2018-06-07 07:48] LABS: Mean Corpuscular HGB Conc 30.8 % (32.0-36.0)
[2018-06-07 08:08] LABS: Albumin 2.3 g/dL (3.4-5.0); Anion Gap 7 meq/L (5-15); Aspartate Aminotransferase 17 U/L (15-37); Blood Urea Nitrogen 13 mg/dL (7-18); Calcium 7.7 mg/dL (8.5-10.1); Carbon Dioxide 25.8 meq/L (21.0-32.0); Chloride 114 meq/L (98-107); Glomerular Filtration Rate Greater Than 89 mL/min (>89); Glucose,Random 95 mg/dL (74-106); Magnesium 1.9 mg/dL (1.5-2.5); Phosphorus 0.6 mg/dL (2.5-4.9); Potassium 3.5 meq/L (3.5-5.1); Sodium 147 meq/L (136-145)
[2018-06-07 08:35] LABS: % Iron Saturation 5.8 % (20-50); Alanine Aminotransferase 16 U/L (12-78); Alkaline Phosphatase 113 U/L (45-117); Carcinoembryonic Antigen 4.9 ng/mL (0.2-5.0); Ferritin 51 ng/mL (26-388); Folate 18.7 ng/mL (3.1-17.5); Iron 12 mcg/dL (65-175); Total Iron Binding Capacity 206 mcg/dL (250-450); Total Protein 5.8 g/dL (6.4-8.2); Vitamin B12 1007 pg/mL (193-986)
--- NOTE | 2018-06-07 10:13 | CT ---
EXAM DATE: 06/07/2018 10:00 AM EDT AGE/SEX: 78 years / Male INDICATIONS: Colon cancer evaluate for metastatic disease. CLINICAL DATA: This is the patient's initial encounter. Patient reports that signs and symptoms have been present for 1 day and indicates a pain score of 0/10. MEDICAL/SURGICAL HISTORY: Carcinoma, colon. Hypertension. None. RADIATION DOSE: 11.64 CTDI (mGy) COMPARISON: No prior exams available for comparison. TECHNIQUE: Multiple contiguous axial images were obtained through the chest without contrast. Image s were obtained in suspended respiration using multiple row detector helical technique. Using automa jeremy exposure control and adjustment of the mA and/or kV according to patient size, radiation dose was kept as low as reasonably achievable to obtain optimal diagnostic quality images. DICOM format imag e data is available electronically for review and comparison. FINDINGS: Compared with abdomen CT from May 30 there is interval development of small bilateral pleural eff usions with basilar atelectasis. Small apical opacity on the right probably represents some mild infl ammatory or postinflammatory change. No pneumothorax. There is no hilar, mediastinal or axillary adenopathy. Moderate coronary calcifications. Small amount of ascites in the upper abdomen. Small hiatal hernia. CONCLUSION: 1. No definite evidence for metastatic disease to the chest. 2. Interval development of small bilateral pleural effusions effusions with minimal ascites present around the liver and spleen as well. No adenopathy in the chest. Electronically signed by: Jose Saravia MD 06/07/2018 10:12 AM EDT
[2018-06-07] MEDS: Atenolol 50 MG Tablet PO SCH (10:25)
[2018-06-07] MEDS: Pantoprazole Inj 40 MG Vial IV.SIG SCH ×2 (10:26→21:56)
[2018-06-07] MEDS: Phenytoin Sodium 100 MG Capsule PO SCH ×2 (10:26→21:56)
[2018-06-07] MEDS: CLORAZEPATE PO SCH (10:30)
[2018-06-07] MEDS: Sodium Chloride 0.9% 2 ML Flush BID IV.FLUSH SCH ×2 (10:31→21:56)
--- NOTE | 2018-06-07 13:13 | P.PNIM ---
Subjective Interval history: 78-year-old male with a past medical history significant for newly diagnosed colon cancer, seizure disorder and hypertension presents to the emergency department with a 4-day history of constipation with abdominal pain and bloating. The patient reports at 3 AM this morning he had severe abdominal pain and bloating. He took a Dulcolax which worsened his symptoms. He then reports multiple episodes of nonbloody nonbilious emesis that have continued throughout the day. He denies any chest pain or shortness of breath. No fever/ chills. No lateralizing signs/symptoms. 05-31 Follow-up for abdominal pain, ileus versus small bowel obstruction, recent diagnosis of colon cancer-patient seen and examined, complains of right abdomen pain, no BM times a week. No nausea and no vomiting since yesterday. No chest pain, no shortness of breath. No fever overnight. Family at bedside. Spoke to Dr. Diez this morning, possible surgery next week. 06-01 Follow-up enteritis mild ileus/colon cancer?/Constipation June 01, 2018-patient seen and examined, no BM times 6 days, currently n.p.o. times 3 days. States he is passing out gas. Case discussed with patient and his 06-02 Follow-up enteritis mild ileus/colon cancer?/Constipation 06/02: Seen in his bedroom discussed with nurse Miss Fregoso, patient walking at this time with his as per General Surgery Ileus versus Obstruction, okay for sips of clears, Enema , Small bowel follow through if no improvement. no nausea at this time, but had one episode of vomit early in the morning today. 06-[address] DIEZ TODAY LAPAROSCOPIC-ASSISTED RIGHT HEMICOLECTOMY BY DR WILFRID DIEZ ON 06-03 FOR OBSTRUCTING RIGHT COLON CANCER 06-04 HAS NGT STILL POSITIVE HICCUPS HAVING ICE CHIPS DW RN AND PT AND FAMILY AM LABS 06-05 STILL HAD SOME ABDOMINAL PAIN LAST NIGHT STILL USING STRIP CLEANER DW RN AND PT AND FAMILY AND CM VERY SLOW PROGRESS AM LABS 06-06 PULLED HIS NGT OUT DW SURGEON INCREASE ACTIVITY DIET PER SURGERY AM LABS 06-07 [address] OF CHEST DW RN AND PT AND FAMILY AND CM AM LABS VERY POOR ORAL INTAKE STILL BUT DID HAVE A BOWEL MOVEMENT Physical Exam Vital signs: Vital Signs 06/06/18 16:00 06/06/18 20:00 06/07/18 00:00 Temperature 98.7 F 97.3 F L 97.0 F L Pulse Rate 80 71 73 Respiratory Rate 17 18 18 Blood Pressure 134/66 111/57 L 164/73 H Pulse Oximetry 94 L 91 L 94 L 06/07/18 04:00 06/07/18 04:37 06/07/18 08:00 Temperature 97.3 F L 97.8 F Pulse Rate 75 70 Respiratory Rate 18 18 Blood Pressure 151/82 H 122/63 Pulse Oximetry 92 L 94 L 95 06/07/18 12:00 Temperature 97.3 F L Pulse Rate 62 Respiratory Rate 18 Blood Pressure 128/60 Pulse Oximetry 95 Intake & Output 06/06/18 06/07/18 06/07/18 18:59 06:59 18:59 Intake Total 660 / 660 Output Total 1750 / 1750 Balance -1090 / -1090 Weight 82.9 kg Intake: IV 200 / 200 NS Inj 1,000 ML @ 50 mls/hr IV. 200 / 200 CONT .Q20H MATHEW Rx#:[id number] Oral 460 / 460 Output: Urine 1500 / 1500 Gastric Drainage 250 / 250 Right Nare Nasogastric Tube 250 / 250 Other: # Voids 2 Date of Last Bowel Movement 06/06/18 Narrative: General: No acute distress. Head: Normocephalic. Atraumatic. EENT: Pupils equal round and reactive to light. Nose without drainage. Airway intact. Throat without injection.NGT IN PLACE Cardiovascular: Regular rate and rhythm. No murmurs, rubs or gallops. S1, S2 NO S3 OR S4 Respiratory: Lungs clear to auscultation bilaterally. No wheezes or rhonchi. Abdomen: LESS Distended. LESS Tender to palpation to right upper and right lower quadrant. No peritoneal signs. LESS Hypoactive bowel sounds. DRESSED Musculoskeletal: No gross deformities. No edema. Skin: No obvious rashes or erythema. Neuro: Awake, alert oriented x3. No focal deficits. - Urinary Catheter Management Indwelling Urethral Catheter Cath placed during this visit: yes, but has since been removed by the nurse Reason for continuing: Decision to DC catheter Insertion date: 06/03/18 Insertion time: 13:42 Removal date: 06/04/18 Removal time: 11:00 Results - Labs CBC & Chem 7: 06/07/18 05:13 06/07/18 05:13 Laboratory Results - last 24 hr 06/07/18 06/07/18 05:13 05:13 WBC 8.4 RBC 3.65 L Hgb 8.6 L Hct 27.8 L MCV 76.1 L MCH 23.4 L MCHC 30.8 L RDW 19.4 H Plt Count 207 MPV 7.1 Neut % (Auto) 69.7 Lymph % (Auto) 19.9 [place] % (Auto) 7.7 Eos % (Auto) 2.0 Baso % (Auto) 0.7 Neut # (Auto) 5.8 Lymph # (Auto) 1.7 [place] # (Auto) 0.6 Eos # (Auto) 0.2 Baso # (Auto) 0.1 WBC Differential . Differential Comment Auto diff final Sodium 147 H Potassium 3.5 Chloride 114 H Carbon Dioxide 25.8 Anion Gap 7 BUN 13 Creatinine 0.71 Estimated GFR Greater than 89 Random Glucose 95 Calcium 7.7 L Phosphorus 0.6 L Magnesium 1.9 Iron 12 L TIBC 206 L % Saturation 5.8 L Ferritin 51 Total Bilirubin 0.3 AST 17 ALT 16 Alkaline Phosphatase 113 Total Protein 5.8 L Albumin 2.3 L Carcinoembryonic Ag 4.9 Vitamin B12 1007 H Folate 18.7 H - Imaging Impressions Chest CT 06/07/18 00:00 CONCLUSION: 1. No definite evidence for metastatic disease to the chest. 2. Interval development of small bilateral pleural effusions effusions with minimal ascites present around the liver and spleen as well. No adenopathy in the chest. - Procedures DATE OF OPERATION: 06/03/2018 PREOPERATIVE DIAGNOSIS: Obstructing right colon cancer. POSTOPERATIVE DIAGNOSES: 1. Obstructing right colon cancer. 2. He has bilateral inguinal hernias. PROCEDURE: Laparoscopic-assisted right hemicolectomy. SURGEON: Wilfrid Diez MD Assessment and Plan - Assessment (1) Abdominal pain Code(s): R10.9 - Unspecified abdominal pain Status: Acute (2) Colon cancer Code(s): C18.9 - Malignant neoplasm of colon, unspecified Status: Acute (3) Seizure disorder Code(s): G40.909 - Epilepsy, unspecified, not intractable, without status epilepticus Status: Chronic (4) HTN (hypertension) Code(s): I10 - Essential (primary) hypertension Status: Chronic - Plan 78-year-old man with Ileus versus Obstruction General Surgery Ileus versus Obstruction, okay for sips of clears, Enema, Small bowel follow through if no improvement. no nausea at this time, but had one episode of vomit early in the morning today. HAD OBSTRUCTION DUE TO TUMOR SP SURGERY TODAY 06-03 laparoscopic assisted right hemicolectomy -N.p.o. per surgery status post surgery today with laparoscopic assisted right hemicolectomy Has NG tube in place 1. Obstructing right colon cancer. POSITIVE NODES ONCOLOGY WILL BE CONSULTED PROCEDURE: Laparoscopic-assisted right hemicolectomy. 06-03 Right Colon cancer Patient diagnosed approximately 1 month ago at [facility], saw Dr. Lynn Records obtained, had colonoscopy which showed right: Large circumferential obstructing mass cephalad to hepatic flexure, possibly proximal most ascending invasive or involving cecum Pathology positive for invasive adenocarcinoma moderately differentiated Was scheduled for PET scan next week Has a laparoscopic-assisted right hemicolectomy June 03 PATHOLOGY PATHOLOGIC STAGE CLASSIFICATION (pTNM, AJCC 8th Edition): PRIMARY TUMOR: pT3. REGIONAL LYMPH NODES: pN2a. TERMINAL ILEUM, COLON, AND APPENDIX, RIGHT HEMICOLECTOMY: - MODERATELY DIFFERENTIATED ADENOCARCINOMA OBLITERATING THE ILEOCECAL VALVE AND INVADING DILMA-COLONIC SOFT TISSUE. - METASTATIC ADENOCARCINOMA TO SIX OF TWELVE LYMPH NODES (6/12). - ONE DILMA-COLONIC TUMOR DEPOSIT. RESECTION MARGINS ARE NEGATIVE FOR MALIGNANCY CT OF CHEST SHOWS NO METASTASIS Hypertension -Currently on atenolol Seizure disorder -continue Dilantin and Tranxene Seizure precautions SCDs for DVT prophylaxis PAIN CONTROL NEEDED VERY SLOW PROGRESS PT AND OT POSITIVE NODES CONSULT ONCOLOGY SEEN BY SURGERY AND ONCOLOGY Code Status: FULL CODE Discussed Condition With: RN AND PT AND CM AND FAMILY Discharge Planning: Once cleared and tolerating a diet per surgery AND CLEARED BY SURGERY (2) Colon cancer Qualifiers: Colon location: ascending Qualified Code(s): C18.2 - Malignant neoplasm of ascending colon (4) HTN (hypertension) Qualifiers: Hypertension type: essential hypertension Qualified Code(s): I10 - Essential (primary) hypertension
--- NOTE | 2018-06-07 16:24 | P.PNGS ---
Subjective Patient reports: no new complaints, feels better, flatus, bowel movement Interval history: DAILY PROGRESS NOTE FOR SURGICAL ATTENDING, DR. RADHA BARNARD Patient has the hiccups Physical Exam Vital signs: Vital Signs 06/06/18 20:00 06/07/18 00:00 06/07/18 04:00 Temperature 97.3 F L 97.0 F L 97.3 F L Pulse Rate 71 73 75 Respiratory Rate 18 18 18 Blood Pressure 111/57 L 164/73 H 151/82 H Pulse Oximetry 91 L 94 L 92 L 06/07/18 04:37 06/07/18 08:00 06/07/18 12:00 Temperature 97.8 F 97.3 F L Pulse Rate 70 62 Respiratory Rate 18 18 Blood Pressure 122/63 128/60 Pulse Oximetry 94 L 95 95 06/07/18 15:03 Temperature Pulse Rate 68 Respiratory Rate Blood Pressure Pulse Oximetry Intake & Output 06/06/18 06/07/18 06/07/18 18:59 06:59 18:59 Intake Total 660 / 660 Output Total 1750 / 1750 Balance -1090 / -1090 Weight 82.9 kg Intake: IV 200 / 200 NS Inj 1,000 ML @ 50 mls/hr IV. 200 / 200 CONT .Q20H PENDING SALE TO [facility] Rx#:[id number] Oral 460 / 460 Output: Urine 1500 / 1500 Gastric Drainage 250 / 250 Right Nare Nasogastric Tube 250 / 250 Other: # Voids 2 Date of Last Bowel Movement 06/06/18 Narrative: General: No acute distress. Patient has hiccups Sitting up in bed in the chair Abdomen soft - Urinary Catheter Management Indwelling Urethral Catheter Cath placed during this visit: yes, but has since been removed by the nurse Reason for continuing: Decision to DC catheter Insertion date: 06/03/18 Insertion time: 13:42 Removal date: 06/04/18 Removal time: 11:00 Results - Labs 06/07/18 05:13 06/07/18 05:13 Laboratory Results - last 24 hr 06/07/18 06/07/18 05:13 05:13 WBC 8.4 RBC 3.65 L Hgb 8.6 L Hct 27.8 L MCV 76.1 L MCH 23.4 L MCHC 30.8 L RDW 19.4 H Plt Count 207 MPV 7.1 Neut % (Auto) 69.7 Lymph % (Auto) 19.9 [place] % (Auto) 7.7 Eos % (Auto) 2.0 Baso % (Auto) 0.7 Neut # (Auto) 5.8 Lymph # (Auto) 1.7 [place] # (Auto) 0.6 Eos # (Auto) 0.2 Baso # (Auto) 0.1 WBC Differential . Differential Comment Auto diff final Sodium 147 H Potassium 3.5 Chloride 114 H Carbon Dioxide 25.8 Anion Gap 7 BUN 13 Creatinine 0.71 Estimated GFR Greater than 89 Random Glucose 95 Calcium 7.7 L Phosphorus 0.6 L Magnesium 1.9 Iron 12 L TIBC 206 L % Saturation 5.8 L Ferritin 51 Total Bilirubin 0.3 AST 17 ALT 16 Alkaline Phosphatase 113 Total Protein 5.8 L Albumin 2.3 L Carcinoembryonic Ag 4.9 Vitamin B12 1007 H Folate 18.7 H - Imaging Imaging: ITS Impressions Abdomen/Pelvis CT 05/30/18 19:10 CONCLUSION: 1. Multiple loops of thickened small bowel in the mid and distal portion most characteristic of an enteritis. Mild dilatation of proximal small bowel likely from associated ileus. There is gas within the partially decompressed colon. 2. Nonobstructing small lower pole left renal calculus. Calcified gallstone. Mild fatty liver. Abdomen X-Ray 06/03/18 00:00 CONCLUSION: 1. Bowel gas pattern is consistent with persistent small bowel obstruction versus severe adynamic ileus. Chest CT 06/07/18 00:00 CONCLUSION: 1. No definite evidence for metastatic disease to the chest. 2. Interval development of small bilateral pleural effusions effusions with minimal ascites present around the liver and spleen as well. No adenopathy in the chest. Additional studies: TERMINAL ILEUM, COLON, AND APPENDIX, RIGHT HEMICOLECTOMY: - MODERATELY DIFFERENTIATED ADENOCARCINOMA OBLITERATING THE ILEOCECAL VALVE AND INVADING DILMA-COLONIC SOFT TISSUE. - METASTATIC ADENOCARCINOMA TO SIX OF TWELVE LYMPH NODES (6/12). - ONE DILMA-COLONIC TUMOR DEPOSIT. - RESECTION MARGINS ARE NEGATIVE FOR MALIGNANCY. - SEE TUMOR SUMMARY. TUMOR SUMMARY PROCEDURE: RIGHT HEMICOLECTOMY. TUMOR SITE: ILEOCECAL VALVE, TERMINAL ILEUM AND CECUM. TUMOR SIZE: 6.5 X 4.5 CM. MACROSCOPIC TUMOR PERFORATION: NOT IDENTIFIED. HISTOLOGIC TYPE: ADENOCARCINOMA. HISTOLOGIC GRADE: G2: MODERATELY DIFFERENTIATED. TUMOR EXENSION: TUMOR INVADES THROUGH MUSCULARIS PROPRIA INTO DILMA-COLIC SOFT TISSUE. SPECIMEN MARGINS: ALL MARGINS ARE UNINVOLVED BY INVASIVE CARCINOMA. MARGINS EXAMINED: PROXIMAL, DISTAL AND RADIAL. TREATMENT EFFECT: NO KNOWN PRESURGICAL THERAPY. LYMPHOVASCULAR INVASION: PRESENT. PERINEURAL INVASION: NOT IDENTIFIED. TUMOR DEPOSITS: PRESENT. NUMBER OF DEPOSITS: ONE (1). REGIONAL LYMPH NODES: LYMPH NODE EXAMINATION: NUMBER OF LYMPH NODES INVOLVED: 6 NUMBER OF LYMPH NODES EXAMINED: 12 PATHOLOGIC STAGE CLASSIFICATION (pTNM, AJCC 8th Edition): PRIMARY TUMOR: pT3. REGIONAL LYMPH NODES: pN2a. Assessment and Plan - Assessment (1) Colon cancer Code(s): C18.9 - Malignant neoplasm of colon, unspecified Status: Acute - Plan 69-year-old male status post right colon resection with metastatic lymph nodes Slow steady progress Anticipate discharge in the next 24-48 hours Discussed with family at bedside - Attending Attestation NOTE FOR SURGICAL ATTENDING, DR. RADHA BARNARD I attest that I had a [id number] encounter with the patient on the same day, and personally performed and documented my assessment and findings in the medical record. The following services were provided during this hospital visit: Chart data review, vital sign assessments/reviewing monitor data Review of consultations notes if present. Medication orders/review and/or management Ordering and/or reviewing lab tests Ordering and/or interpreting/reviewing x-rays and/or diagnostic studies Care of the patient and discussion of the patient with the care team Documentation time To help prompt me to consider important information that might be impacting today's encounter and assessment, Information from prior notes written by myself or my colleagues may have been "brought forward/copy and pasted" into today's note. (1) Colon cancer Qualifiers: Colon location: ascending Qualified Code(s): C18.2 - Malignant neoplasm of ascending colon
[2018-06-07] MEDS ORDERED: ChlorproMAZINE 25 MG Tablet PO PRN (16:39)
--- NOTE | 2018-06-07 19:42 | P.PNONC ---
Subjective Interval history: Resting comfortably in bed in no distress. Objective Vital Signs/Intake & Output: Vital Signs 06/06/18 20:00 06/07/18 00:00 06/07/18 04:00 Temperature 97.3 F L 97.0 F L 97.3 F L Pulse Rate 71 73 75 Respiratory Rate 18 18 18 Blood Pressure 111/57 L 164/73 H 151/82 H Pulse Oximetry 91 L 94 L 92 L 06/07/18 04:37 06/07/18 08:00 06/07/18 12:00 Temperature 97.8 F 97.3 F L Pulse Rate 70 62 Respiratory Rate 18 18 Blood Pressure 122/63 128/60 Pulse Oximetry 94 L 95 95 06/07/18 15:03 06/07/18 16:00 Temperature 97.9 F Pulse Rate 68 70 Respiratory Rate 20 Blood Pressure 161/70 H Pulse Oximetry 96 Intake & Output 06/07/18 06/07/18 06/08/18 06:59 18:59 06:59 Intake Total 600 / 600 Output Total 400 / 400 Balance 200 / 200 Weight 82.9 kg Intake: Oral 600 / 600 Output: Urine 400 / 400 Other: # Voids 2 Date of Last Bowel Movement 06/06/18 # Bowel Movements 1 Result Diagrams: 06/07/18 05:13 06/07/18 05:13 Laboratory Results: Laboratory Results - last 24 hr 06/07/18 06/07/18 05:13 05:13 WBC 8.4 RBC 3.65 L Hgb 8.6 L Hct 27.8 L MCV 76.1 L MCH 23.4 L MCHC 30.8 L RDW 19.4 H Plt Count 207 MPV 7.1 Neut % (Auto) 69.7 Lymph % (Auto) 19.9 [place] % (Auto) 7.7 Eos % (Auto) 2.0 Baso % (Auto) 0.7 Neut # (Auto) 5.8 Lymph # (Auto) 1.7 [place] # (Auto) 0.6 Eos # (Auto) 0.2 Baso # (Auto) 0.1 WBC Differential . Differential Comment Auto diff final Sodium 147 H Potassium 3.5 Chloride 114 H Carbon Dioxide 25.8 Anion Gap 7 BUN 13 Creatinine 0.71 Estimated GFR Greater than 89 Random Glucose 95 Calcium 7.7 L Phosphorus 0.6 L Magnesium 1.9 Iron 12 L TIBC 206 L % Saturation 5.8 L Ferritin 51 Total Bilirubin 0.3 AST 17 ALT 16 Alkaline Phosphatase 113 Total Protein 5.8 L Albumin 2.3 L Carcinoembryonic Ag 4.9 Vitamin B12 1007 H Folate 18.7 H Imaging Studies: Impressions Chest CT 06/07/18 00:00 CONCLUSION: 1. No definite evidence for metastatic disease to the chest. 2. Interval development of small bilateral pleural effusions effusions with minimal ascites present around the liver and spleen as well. No adenopathy in the chest. Medications: Active Medications Generic Name Dose Route Start Last Admin Trade Name Freq PRN Reason Stop Dose Admin Hydrocodone Bitart/Acetaminophen 2 tab 06/06/18 11:27 06/07/18 16:36 [place] 5/325 PO 2 tab Q4H PRN Administration PAIN SCALE 1 TO 5 Albuterol 1 ampul 06/04/18 22:15 06/05/18 03:05 Duoneb Neb (Prn) NEB 1 ampul Q2HR NEB PRN Administration sob Atenolol 50 mg 06/01/18 10:00 06/07/18 10:25 Tenormin PO 50 mg DAILY MATHEW Administration Bisacodyl 10 mg 05/30/18 23:17 06/02/18 14:27 Dulcolax Supp RECTAL 10 mg DAILY PRN Administration SEVERE CONSITIPATION Enalaprilat 1.25 mg 05/31/18 09:02 06/04/18 15:32 Vasotec Inj IV.PUSH 1.25 mg Q6H PRN Administration BLOOD PRESSURE MANAGEMENT Ketorolac Tromethamine 15 mg 06/03/18 15:40 06/05/18 06:33 Toradol Inj IV.PUSH 06/08/18 15:39 15 mg Q6H PRN Administration SEE LABEL COMMENTS Ondansetron HCl 4 mg 05/30/18 23:17 06/05/18 21:48 Zofran Inj IV.PUSH 4 mg Q6H PRN Administration NAUSEA OR VOMITING Pantoprazole Sodium 40 mg 06/04/18 15:00 06/07/18 10:26 Protonix Inj IV.SIG 40 mg BID MATHEW Administration Pom:Clorazapate 3. 0 each 06/03/18 09:00 06/07/18 10:30 75mg (Tranxene-T) 7. PO 1 each 5 Mg Po Daily DAILY MATHEW Administration Pom:Clorazapate 3. 0 each 06/02/18 21:00 06/06/18 20:20 75mg (Tranxene-T) PO 1 each HS MATHEW Administration Phenytoin Sodium 100 mg 05/31/18 14:30 06/07/18 10:26 Dilantin PO 100 mg BID MATHEW Administration Sodium Chloride 2 ml 05/31/18 09:00 06/07/18 10:31 Ns Flush IV.FLUSH 2 ml BID MATHEW Administration Sodium Chloride 2 ml 05/30/18 23:27 06/01/18 21:11 Ns Flush IV.FLUSH 2 ml PRN PRN Administration FLUSH AFTER USING IV ACCESS Zonisamide 200 mg 06/02/18 09:00 06/07/18 10:26 Zonegran PO 200 mg DAILY MATHEW Administration Objective Remarks: GENERAL: Well-nourished, well-developed patient. SKIN: Warm and dry. HEAD: Normocephalic. EYES: No scleral icterus. No injection or drainage. NECK: Supple, trachea midline. No JVD or lymphadenopathy. LYMPHATIC: No adenopathy. CARDIOVASCULAR: Regular rate and rhythm without murmurs. RESPIRATORY: Breath sounds equal bilaterally. No accessory muscle use. GASTROINTESTINAL: Abdomen soft, non-tender, nondistended. EXTREMITIES: No cyanosis, or edema. MUSCULOSKELETAL: Adequate muscle tone. NEUROLOGICAL: No obvious focal deficit. Awake, alert, and oriented x3. PSYCHIATRIC: Appropriate mood and affect; insight and judgment normal. Assessment/Plan - Plan 1. Stage III colon cancer. No evidence of metastatic disease. s/p surgical resection. Will need to follow up in onoclogy in the outpatinet setting for chemotherapy.
[2018-06-07] MEDS: CLORAZEPATE 3.75 MG PO SCH (21:56)
[2018-06-08] MEDS: Atenolol 50 MG Tablet PO SCH (10:20)
[2018-06-08] MEDS: Pantoprazole Inj 40 MG Vial IV.SIG SCH ×2 (10:20→21:03)
[2018-06-08] MEDS: Phenytoin Sodium 100 MG Capsule PO SCH ×2 (10:20→21:03)
[2018-06-08] MEDS: CLORAZEPATE PO SCH (10:21)
[2018-06-08] MEDS: Sodium Chloride 0.9% 2 ML Flush BID IV.FLUSH SCH ×2 (10:21→21:04)
--- NOTE | 2018-06-08 11:06 | P.PNIM ---
Subjective Interval history: 78-year-old male with a past medical history significant for newly diagnosed colon cancer, seizure disorder and hypertension presents to the emergency department with a 4-day history of constipation with abdominal pain and bloating. The patient reports at 3 AM this morning he had severe abdominal pain and bloating. He took a Dulcolax which worsened his symptoms. He then reports multiple episodes of nonbloody nonbilious emesis that have continued throughout the day. He denies any chest pain or shortness of breath. No fever/ chills. No lateralizing signs/symptoms. 05-31 Follow-up for abdominal pain, ileus versus small bowel obstruction, recent diagnosis of colon cancer-patient seen and examined, complains of right abdomen pain, no BM times a week. No nausea and no vomiting since yesterday. No chest pain, no shortness of breath. No fever overnight. Family at bedside. Spoke to Dr. Diez this morning, possible surgery next week. 06-01 Follow-up enteritis mild ileus/colon cancer?/Constipation June 01, 2018-patient seen and examined, no BM times 6 days, currently n.p.o. times 3 days. States he is passing out gas. Case discussed with patient and his 06-02 Follow-up enteritis mild ileus/colon cancer?/Constipation 06/02: Seen in his bedroom discussed with nurse Miss Fregoso, patient walking at this time with his as per General Surgery Ileus versus Obstruction, okay for sips of clears, Enema , Small bowel follow through if no improvement. no nausea at this time, but had one episode of vomit early in the morning today. 06-[address] DIEZ TODAY LAPAROSCOPIC-ASSISTED RIGHT HEMICOLECTOMY BY DR WILFRID DIEZ ON 06-03 FOR OBSTRUCTING RIGHT COLON CANCER 06-04 HAS NGT STILL POSITIVE HICCUPS HAVING ICE CHIPS DW RN AND PT AND FAMILY AM LABS 06-05 STILL HAD SOME ABDOMINAL PAIN LAST NIGHT STILL USING [employer]ER DW RN AND PT AND FAMILY AND CM VERY SLOW PROGRESS AM LABS 06-06 PULLED HIS NGT OUT DW SURGEON INCREASE ACTIVITY DIET PER SURGERY AM LABS 06-07 SEEN [address] OF CHEST DW RN AND PT AND FAMILY AND CM AM LABS VERY POOR ORAL INTAKE STILL BUT DID HAVE A BOWEL MOVEMENT 06-08 TOLERATING A DIET BETTER ATE WELL FOR DINNER NOT SO GOOD FOR BREAKFAST DW RN AND PATIENT AND CM Physical Exam Vital signs: Vital Signs 06/07/18 12:00 06/07/18 15:03 06/07/18 16:00 Temperature 97.3 F L 97.9 F Pulse Rate 62 68 70 Respiratory Rate 18 20 Blood Pressure 128/60 161/70 H Pulse Oximetry 95 96 06/07/18 20:00 06/07/18 22:04 06/08/18 00:00 Temperature 97.9 F 97.7 F Pulse Rate 72 72 63 Respiratory Rate 18 18 16 Blood Pressure 149/70 H 112/65 Pulse Oximetry 94 L 97 06/08/18 04:00 06/08/18 08:00 Temperature 97.6 F 97.8 F Pulse Rate 65 66 Respiratory Rate 17 17 Blood Pressure 159/70 H 153/72 H Pulse Oximetry 95 98 Intake & Output 06/07/18 06/08/18 06/08/18 18:59 06:59 18:59 Intake Total 600 / 600 500 / 500 Output Total 400 / 400 Balance 200 / 200 500 / 500 Weight 82.6 kg Intake: Oral 600 / 600 500 / 500 Output: Urine 400 / 400 Other: # Voids 4 Date of Last Bowel Movement 06/06/18 # Bowel Movements 1 Narrative: General: No acute distress. Head: Normocephalic. Atraumatic. EENT: Pupils equal round and reactive to light. Nose without drainage. Airway intact. Throat without injection.NGT IN PLACE Cardiovascular: Regular rate and rhythm. No murmurs, rubs or gallops. S1, S2 NO S3 OR S4 Respiratory: Lungs clear to auscultation bilaterally. No wheezes or rhonchi. Abdomen: LESS Distended. LESS Tender to palpation to right upper and right lower quadrant. No peritoneal signs. LESS Hypoactive bowel sounds. DRESSED Musculoskeletal: No gross deformities. No edema. Skin: No obvious rashes or erythema. Neuro: Awake, alert oriented x3. No focal deficits. - Urinary Catheter Management Indwelling Urethral Catheter Cath placed during this visit: yes, but has since been removed by the nurse Reason for continuing: Decision to DC catheter Insertion date: 06/03/18 Insertion time: 13:42 Removal date: 06/04/18 Removal time: 11:00 Results - Labs CBC & Chem 7: 06/07/18 05:13 06/07/18 05:13 ITS Impressions - Imaging ITS Impressions Abdomen/Pelvis CT 10/18/18 19:10 CONCLUSION: 1. Multiple loops of thickened small bowel in the mid and distal portion most characteristic of an enteritis. Mild dilatation of proximal small bowel likely from associated ileus. There is gas within the partially decompressed colon. 2. Nonobstructing small lower pole left renal calculus. Calcified gallstone. Mild fatty liver. Abdomen X-Ray 06/03/18 00:00 CONCLUSION: 1. Bowel gas pattern is consistent with persistent small bowel obstruction versus severe adynamic ileus. Chest CT 06/07/18 00:00 CONCLUSION: 1. No definite evidence for metastatic disease to the chest. 2. Interval development of small bilateral pleural effusions effusions with minimal ascites present around the liver and spleen as well. No adenopathy in the chest. - Procedures DATE OF OPERATION: 06/03/2018 PREOPERATIVE DIAGNOSIS: Obstructing right colon cancer. POSTOPERATIVE DIAGNOSES: 1. Obstructing right colon cancer. 2. He has bilateral inguinal hernias. PROCEDURE: Laparoscopic-assisted right hemicolectomy. SURGEON: Wilfrid Diez MD Assessment and Plan - Assessment (1) Abdominal pain Code(s): R10.9 - Unspecified abdominal pain Status: Acute (2) Colon cancer Code(s): C18.9 - Malignant neoplasm of colon, unspecified Status: Acute (3) Seizure disorder Code(s): G40.909 - Epilepsy, unspecified, not intractable, without status epilepticus Status: Chronic (4) HTN (hypertension) Code(s): I10 - Essential (primary) hypertension Status: Chronic - Plan 78-year-old man with Ileus versus Obstruction General Surgery Ileus versus Obstruction, okay for sips of clears, Enema, Small bowel follow through if no improvement. no nausea at this time, but had one episode of vomit early in the morning today. HAD OBSTRUCTION DUE TO TUMOR SP SURGERY TODAY 06-03 laparoscopic assisted right hemicolectomy -N.p.o. per surgery status post surgery today with laparoscopic assisted right hemicolectomy Has NG tube in place 1. Obstructing right colon cancer. POSITIVE NODES ONCOLOGY WILL BE CONSULTED PROCEDURE: Laparoscopic-assisted right hemicolectomy. 06-03 Right Colon cancer Patient diagnosed approximately 1 month ago at [facility], saw Dr. Lynn Records obtained, had colonoscopy which showed right: Large circumferential obstructing mass cephalad to hepatic flexure, possibly proximal most ascending invasive or involving cecum Pathology positive for invasive adenocarcinoma moderately differentiated Was scheduled for PET scan next week Has a laparoscopic-assisted right hemicolectomy June 03 PATHOLOGY PATHOLOGIC STAGE CLASSIFICATION (pTNM, AJCC 8th Edition): PRIMARY TUMOR: pT3. REGIONAL LYMPH NODES: pN2a. TERMINAL ILEUM, COLON, AND APPENDIX, RIGHT HEMICOLECTOMY: - MODERATELY DIFFERENTIATED ADENOCARCINOMA OBLITERATING THE ILEOCECAL VALVE AND INVADING DILMA-COLONIC SOFT TISSUE. - METASTATIC ADENOCARCINOMA TO SIX OF TWELVE LYMPH NODES (6/12). - ONE DILMA-COLONIC TUMOR DEPOSIT. RESECTION MARGINS ARE NEGATIVE FOR MALIGNANCY CT OF CHEST SHOWS NO METASTASIS Hypertension -Currently on atenolol Seizure disorder -continue Dilantin and Tranxene Seizure precautions SCDs for DVT prophylaxis PAIN CONTROL NEEDED VERY SLOW PROGRESS PT AND OT POSITIVE NODES CONSULT ONCOLOGY SEEN BY SURGERY AND ONCOLOGY AWAIT SURGICAL CLEARANCE FOR DISCHARGE Code Status: FULL CODE Discussed Condition With: RN AND PT AND CM AND FAMILY Discharge Planning: Once cleared and tolerating a diet per surgery AND CLEARED BY SURGERY (2) Colon cancer Qualifiers: Colon location: ascending Qualified Code(s): C18.2 - Malignant neoplasm of ascending colon (4) HTN (hypertension) Qualifiers: Hypertension type: essential hypertension Qualified Code(s): I10 - Essential (primary) hypertension
--- NOTE | 2018-06-08 11:43 | P.PNGS ---
Subjective Patient reports: feels better, still having pain, flatus, bowel movement Physical Exam Vital signs: Vital Signs 06/07/18 12:00 06/07/18 15:03 06/07/18 16:00 Temperature 97.3 F L 97.9 F Pulse Rate 62 68 70 Respiratory Rate 18 20 Blood Pressure 128/60 161/70 H Pulse Oximetry 95 96 06/07/18 20:00 06/07/18 22:04 06/08/18 00:00 Temperature 97.9 F 97.7 F Pulse Rate 72 72 63 Respiratory Rate 18 18 16 Blood Pressure 149/70 H 112/65 Pulse Oximetry 94 L 97 06/08/18 04:00 06/08/18 08:00 Temperature 97.6 F 97.8 F Pulse Rate 65 66 Respiratory Rate 17 17 Blood Pressure 159/70 H 153/72 H Pulse Oximetry 95 98 Intake & Output 06/07/18 06/08/18 06/08/18 18:59 06:59 18:59 Intake Total 600 / 600 500 / 500 Output Total 400 / 400 Balance 200 / 200 500 / 500 Weight 82.6 kg Intake: Oral 600 / 600 500 / 500 Output: Urine 400 / 400 Other: # Voids 4 Date of Last Bowel Movement 06/06/18 # Bowel Movements 1 - Routine Abdominal Exam Present: soft (incisional tenderness) - Urinary Catheter Management Indwelling Urethral Catheter Cath placed during this visit: yes, but has since been removed by the nurse Reason for continuing: Decision to DC catheter Insertion date: 06/03/18 Insertion time: 13:42 Removal date: 06/04/18 Removal time: 11:00 Results - Labs 06/07/18 05:13 06/07/18 05:13 - Imaging Imaging: ITS Impressions Abdomen/Pelvis CT 05/30/18 19:10 CONCLUSION: 1. Multiple loops of thickened small bowel in the mid and distal portion most characteristic of an enteritis. Mild dilatation of proximal small bowel likely from associated ileus. There is gas within the partially decompressed colon. 2. Nonobstructing small lower pole left renal calculus. Calcified gallstone. Mild fatty liver. Abdomen X-Ray 06/03/18 00:00 CONCLUSION: 1. Bowel gas pattern is consistent with persistent small bowel obstruction versus severe adynamic ileus. Chest CT 06/07/18 00:00 CONCLUSION: 1. No definite evidence for metastatic disease to the chest. 2. Interval development of small bilateral pleural effusions effusions with minimal ascites present around the liver and spleen as well. No adenopathy in the chest. Assessment and Plan - Assessment (1) Colon cancer Code(s): C18.9 - Malignant neoplasm of colon, unspecified Status: Acute - Plan 69-year-old male status post right colon resection with metastatic lymph nodes Slow steady progress Anticipate discharge if tolerating diet, possibly today or tomorrow Discussed with at bedside ambulate (1) Colon cancer Qualifiers: Colon location: ascending Qualified Code(s): C18.2 - Malignant neoplasm of ascending colon
[2018-06-08] MEDS: Sodium Chloride 0.9% 2 ML Flush PRN IV.FLUSH (21:03)
[2018-06-08] MEDS: CLORAZEPATE 3.75 MG PO SCH (21:04)
[2018-06-09 04:12] LABS: Baso # (Auto) 0.1 th/mm3 (0.0-0.2); Baso % (Auto) 0.5 % (0.0-2.0); Eos # (Auto) 0.3 th/mm3 (0.0-0.4); Eos % (Auto) 2.3 % (0.0-4.0); Hematocrit 25.6 % (39.0-51.0); Hemoglobin 8.3 gm/dL (13.0-17.0); Lymph # (Auto) 1.6 th/mm3 (1.0-4.8); Lymph % (Auto) 14.3 % (9.0-44.0); Mean Corpuscular HGB Conc 32.5 % (32.0-36.0); Mean Corpuscular Hemoglobin 24.4 pg (27.0-34.0); Mean Corpuscular Volume 75.3 fL (80.0-100.0); Mean Platelet Volume 7.1 fL (7.0-11.0); Mono # (Auto) 0.9 th/mm3 (0.0-0.9); Neut # (Auto) 8.3 th/mm3 (1.8-7.7); Neut % (Auto) 74.9 % (16.0-70.0); Platelet Count 194 th/mm3 (150-450); Red Cell Distribution Width 18.9 % (11.6-17.2); White Blood Count 11.2 th/mm3 (4.0-11.0)
[2018-06-09 04:36] LABS: Albumin 2.3 g/dL (3.4-5.0); Anion Gap 8 meq/L (5-15); Aspartate Aminotransferase 32 U/L (15-37); Blood Urea Nitrogen 11 mg/dL (7-18); Calcium 7.5 mg/dL (8.5-10.1); Carbon Dioxide 25.2 meq/L (21.0-32.0); Chloride 112 meq/L (98-107); Glomerular Filtration Rate Greater Than 89 mL/min (>89); Glucose,Random 111 mg/dL (74-106); Magnesium 1.7 mg/dL (1.5-2.5); Potassium 3.3 meq/L (3.5-5.1); Sodium 145 meq/L (136-145)
[2018-06-09 04:37] LABS: Alanine Aminotransferase 24 U/L (12-78); Phosphorus 1.2 mg/dL (2.5-4.9)
[2018-06-09 04:39] LABS: Alkaline Phosphatase 59 U/L (45-117); Total Protein 5.8 g/dL (6.4-8.2)
[2018-06-09 08:37] VITALS: RESP 17
[2018-06-09] MEDS: Atenolol 50 MG Tablet PO SCH (09:28)
[2018-06-09] MEDS: Pantoprazole Inj 40 MG Vial IV.SIG SCH (09:28)
[2018-06-09] MEDS: Phenytoin Sodium 100 MG Capsule PO SCH (09:29)
[2018-06-09] MEDS: CLORAZEPATE PO SCH (09:29)
[2018-06-09] MEDS: Sodium Chloride 0.9% 2 ML Flush BID IV.FLUSH SCH (09:30)
[2018-06-09] MEDS ORDERED: Magnesium Sulfate Inj 2 GM in Sodium Chlor 0.9% Inj 96 ML IV.SIG ONE (11:00)
--- NOTE | 2018-06-09 11:38 | P.PNIM ---
Subjective Interval history: 78-year-old male with a past medical history significant for newly diagnosed colon cancer, seizure disorder and hypertension presents to the emergency department with a 4-day history of constipation with abdominal pain and bloating. The patient reports at 3 AM this morning he had severe abdominal pain and bloating. He took a Dulcolax which worsened his symptoms. He then reports multiple episodes of nonbloody nonbilious emesis that have continued throughout the day. He denies any chest pain or shortness of breath. No fever/ chills. No lateralizing signs/symptoms. 05-31 Follow-up for abdominal pain, ileus versus small bowel obstruction, recent diagnosis of colon cancer-patient seen and examined, complains of right abdomen pain, no BM times a week. No nausea and no vomiting since yesterday. No chest pain, no shortness of breath. No fever overnight. Family at bedside. Spoke to Dr. Diez this morning, possible surgery next week. 06-01 Follow-up enteritis mild ileus/colon cancer?/Constipation June 01, 2018-patient seen and examined, no BM times 6 days, currently n.p.o. times 3 days. States he is passing out gas. Case discussed with patient and his 06-02 Follow-up enteritis mild ileus/colon cancer?/Constipation 06/02: Seen in his bedroom discussed with nurse Miss Fregoso, patient walking at this time with his as per General Surgery Ileus versus Obstruction, okay for sips of clears, Enema , Small bowel follow through if no improvement. no nausea at this time, but had one episode of vomit early in the morning today. 06-[address] DIEZ TODAY LAPAROSCOPIC-ASSISTED RIGHT HEMICOLECTOMY BY DR WILFRID DIEZ ON 06-03 FOR OBSTRUCTING RIGHT COLON CANCER 06-04 HAS NGT STILL POSITIVE HICCUPS HAVING ICE CHIPS DW RN AND PT AND FAMILY AM LABS 06-05 STILL HAD SOME ABDOMINAL PAIN LAST NIGHT STILL USING [employer]OR [employer] DW RN AND PT AND FAMILY AND CM VERY SLOW PROGRESS AM LABS 06-06 PULLED HIS NGT OUT DW SURGEON INCREASE ACTIVITY DIET PER SURGERY AM LABS 06-07 SEEN BY ONCOLOGY HAD CT OF CHEST DW RN AND PT AND FAMILY AND CM AM LABS VERY POOR ORAL INTAKE STILL BUT DID HAVE A BOWEL MOVEMENT 06-08 TOLERATING A DIET BETTER ATE WELL FOR DINNER NOT SO GOOD FOR BREAKFAST DW RN AND PATIENT AND CM 06-09 WANTS TO GO HOME REPLACE POTASSIUM AND MAGNESIUM DC TO HOME SEE RX DW RN AND PT AND CM [facility] Physical Exam Vital signs: Vital Signs 06/08/18 12:00 06/08/18 16:00 06/08/18 20:00 Temperature 98.0 F 97.6 F 97.8 F Pulse Rate 68 66 68 Respiratory Rate 17 17 20 Blood Pressure 163/73 H 166/70 H 153/71 H Pulse Oximetry 97 98 99 06/09/18 00:00 06/09/18 04:00 06/09/18 08:00 Temperature 97.9 F 97.3 F L 97.4 F L Pulse Rate 73 65 63 Respiratory Rate 20 20 17 Blood Pressure 154/68 H 149/70 H 170/74 H Pulse Oximetry 97 100 97 Intake & Output 06/08/18 06/09/18 06/09/18 18:59 06:59 18:59 Intake Total 1800 / 1800 0 / 0 Balance 1800 / 1800 0 / 0 Weight 78.3 kg Intake: Oral 1800 / 1800 Other 0 / 0 Other: # Voids 5 3 Date of Last Bowel Movement 06/08/18 06/09/18 # Bowel Movements 3 2 Narrative: General: No acute distress. Head: Normocephalic. Atraumatic. EENT: Pupils equal round and reactive to light. Nose without drainage. Airway intact. Throat without injection.NGT IN PLACE Cardiovascular: Regular rate and rhythm. No murmurs, rubs or gallops. S1, S2 NO S3 OR S4 Respiratory: Lungs clear to auscultation bilaterally. No wheezes or rhonchi. Abdomen: LESS Distended. LESS Tender to palpation to right upper and right lower quadrant. No peritoneal signs. POSITIVE BS DRESSED Musculoskeletal: No gross deformities. No edema. Skin: No obvious rashes or erythema. Neuro: Awake, alert oriented x3. No focal deficits. - Urinary Catheter Management Indwelling Urethral Catheter Cath placed during this visit: yes, but has since been removed by the nurse Reason for continuing: Decision to DC catheter Insertion date: 06/03/18 Insertion time: 13:42 Removal date: 06/04/18 Removal time: 11:00 Results - Labs CBC & Chem 7: 06/09/18 03:32 06/09/18 03:32 Laboratory Results - last 24 hr 06/09/18 06/09/18 03:32 03:32 WBC 11.2 H RBC 3.40 L Hgb 8.3 L Hct 25.6 L MCV 75.3 L MCH 24.4 L MCHC 32.5 RDW 18.9 H Plt Count 194 MPV 7.1 Neut % (Auto) 74.9 H Lymph % (Auto) 14.3 [place] % (Auto) 8.0 Eos % (Auto) 2.3 Baso % (Auto) 0.5 Neut # (Auto) 8.3 H Lymph # (Auto) 1.6 [place] # (Auto) 0.9 Eos # (Auto) 0.3 Baso # (Auto) 0.1 WBC Differential . Differential Comment Auto diff final Sodium 145 Potassium 3.3 L Chloride 112 H Carbon Dioxide 25.2 Anion Gap 8 BUN 11 Creatinine 0.53 L Estimated GFR Greater than 89 Random Glucose 111 H Calcium 7.5 L Phosphorus 1.2 L Magnesium 1.7 Total Bilirubin 0.3 AST 32 ALT 24 Alkaline Phosphatase 59 Total Protein 5.8 L Albumin 2.3 L - Imaging Abdomen/Pelvis CT 05/30/18 19:10 CONCLUSION: 1. Multiple loops of thickened small bowel in the mid and distal portion most characteristic of an enteritis. Mild dilatation of proximal small bowel likely from associated ileus. There is gas within the partially decompressed colon. 2. Nonobstructing small lower pole left renal calculus. Calcified gallstone. Mild fatty liver. Abdomen X-Ray 06/02/18 00:00 CONCLUSION: Diffuse gaseous distention of small bowel. There is some gas in the colon. Differential diagnosis includes ileus or low-grade obstruction. Abdomen X-Ray 06/03/18 00:00 CONCLUSION: 1. Bowel gas pattern is consistent with persistent small bowel obstruction versus severe adynamic ileus. Chest CT 06/07/18 00:00 CONCLUSION: 1. No definite evidence for metastatic disease to the chest. 2. Interval development of small bilateral pleural effusions effusions with minimal ascites present around the liver and spleen as well. No adenopathy in the chest. - Procedures DATE OF OPERATION: 06/03/2018 PREOPERATIVE DIAGNOSIS: Obstructing right colon cancer. POSTOPERATIVE DIAGNOSES: 1. Obstructing right colon cancer. 2. He has bilateral inguinal hernias. PROCEDURE: Laparoscopic-assisted right hemicolectomy. SURGEON: Wilfrid Diez MD Assessment and Plan - Assessment (1) Abdominal pain Code(s): R10.9 - Unspecified abdominal pain Status: Acute (2) Colon cancer Code(s): C18.9 - Malignant neoplasm of colon, unspecified Status: Acute (3) Seizure disorder Code(s): G40.909 - Epilepsy, unspecified, not intractable, without status epilepticus Status: Chronic (4) HTN (hypertension) Code(s): I10 - Essential (primary) hypertension Status: Chronic - Plan 78-year-old man with Ileus versus Obstruction General Surgery Ileus versus Obstruction, okay for sips of clears, Enema, Small bowel follow through if no improvement. no nausea at this time, but had one episode of vomit early in the morning today. HAD OBSTRUCTION DUE TO TUMOR SP SURGERY TODAY 06-03 laparoscopic assisted right hemicolectomy -N.p.o. per surgery status post surgery today with laparoscopic assisted right hemicolectomy Has NG tube in place 1. Obstructing right colon cancer. POSITIVE NODES ONCOLOGY WILL BE CONSULTED PROCEDURE: Laparoscopic-assisted right hemicolectomy. 06-03 Right Colon cancer Patient diagnosed approximately 1 month ago at [facility], saw Dr. Lynn Records obtained, had colonoscopy which showed right: Large circumferential obstructing mass cephalad to hepatic flexure, possibly proximal most ascending invasive or involving cecum Pathology positive for invasive adenocarcinoma moderately differentiated Was scheduled for PET scan next week Has a laparoscopic-assisted right hemicolectomy June 03 PATHOLOGY PATHOLOGIC STAGE CLASSIFICATION (pTNM, AJCC 8th Edition): PRIMARY TUMOR: pT3. REGIONAL LYMPH NODES: pN2a. TERMINAL ILEUM, COLON, AND APPENDIX, RIGHT HEMICOLECTOMY: - MODERATELY DIFFERENTIATED ADENOCARCINOMA OBLITERATING THE ILEOCECAL VALVE AND INVADING DILMA-COLONIC SOFT TISSUE. - METASTATIC ADENOCARCINOMA TO SIX OF TWELVE LYMPH NODES (6/12). - ONE DILMA-COLONIC TUMOR DEPOSIT. RESECTION MARGINS ARE NEGATIVE FOR MALIGNANCY CT OF CHEST SHOWS NO METASTASIS Hypertension -Currently on atenolol Seizure disorder -continue Dilantin and Tranxene Seizure precautions SCDs for DVT prophylaxis PAIN CONTROL NEEDED VERY SLOW PROGRESS PT AND OT POSITIVE NODES CONSULT ONCOLOGY SEEN BY SURGERY AND ONCOLOGY HYPOKALEMIA AND HYPOMAG REPLACED HAS ANEMIA CLEARED FOR DISCHARGE Code Status: FULL CODE Discussed Condition With: RN AND PT AND CM Discharge Planning: DC TO HOME TODAY (2) Colon cancer Qualifiers: Colon location: ascending Qualified Code(s): C18.2 - Malignant neoplasm of ascending colon (4) HTN (hypertension) Qualifiers: Hypertension type: essential hypertension Qualified Code(s): I10 - Essential (primary) hypertension
--- NOTE | 2018-06-09 11:47 | P.DS ---
Date of admission: 05/30/18 23:17 Primary care physician: Physician [facility] Attending physician on discharge: Oziel Beckman Anticipated date of discharge: 06/09/18 Brief History from admission: 78-year-old male with a past medical history significant for newly diagnosed colon cancer, seizure disorder and hypertension presents to the emergency department with a 4-day history of constipation with abdominal pain and bloating. The patient reports at 3 AM this morning he had severe abdominal pain and bloating. He took a Dulcolax which worsened his symptoms. He then reports multiple episodes of nonbloody nonbilious emesis that have continued throughout the day. He denies any chest pain or shortness of breath. No fever/ chills. No lateralizing signs/symptoms. Patient update on day of discharge: 78-year-old male with a past medical history significant for newly diagnosed colon cancer, seizure disorder and hypertension presents to the emergency department with a 4-day history of constipation with abdominal pain and bloating. The patient reports at 3 AM this morning he had severe abdominal pain and bloating. He took a Dulcolax which worsened his symptoms. He then reports multiple episodes of nonbloody nonbilious emesis that have continued throughout the day. He denies any chest pain or shortness of breath. No fever/ chills. No lateralizing signs/symptoms. 05-31 Follow-up for abdominal pain, ileus versus small bowel obstruction, recent diagnosis of colon cancer-patient seen and examined, complains of right abdomen pain, no BM times a week. No nausea and no vomiting since yesterday. No chest pain, no shortness of breath. No fever overnight. Family at bedside. Spoke to Dr. Diez this morning, possible surgery next week. 06-01 Follow-up enteritis mild ileus/colon cancer?/Constipation June 01, 2018-patient seen and examined, no BM times 6 days, currently n.p.o. times 3 days. States he is passing out gas. Case discussed with patient and his 06-02 Follow-up enteritis mild ileus/colon cancer?/Constipation 06/02: Seen in his bedroom discussed with nurse Miss Fregoso, patient walking at this time with his as per General Surgery Ileus versus Obstruction, okay for sips of clears, Enema , Small bowel follow through if no improvement. no nausea at this time, but had one episode of vomit early in the morning today. 06-[address] DIEZ TODAY LAPAROSCOPIC-ASSISTED RIGHT HEMICOLECTOMY BY DR WILFRID DIEZ ON 06-03 FOR OBSTRUCTING RIGHT COLON CANCER 06-04 HAS NGT STILL POSITIVE HICCUPS HAVING ICE CHIPS DW RN AND PT AND FAMILY AM LABS 06-05 STILL HAD SOME ABDOMINAL PAIN LAST NIGHT STILL USING ETL DEVELOPER DW RN AND PT AND FAMILY AND CM VERY SLOW PROGRESS AM LABS 06-06 PULLED HIS NGT OUT DW SURGEON INCREASE ACTIVITY DIET PER SURGERY AM LABS 06-[address] OF CHEST DW RN AND PT AND FAMILY AND CM AM LABS VERY POOR ORAL INTAKE STILL BUT DID HAVE A BOWEL MOVEMENT 06-08 TOLERATING A DIET BETTER ATE WELL FOR DINNER NOT SO GOOD FOR BREAKFAST DW RN AND PATIENT AND CM 06-09 WANTS TO GO HOME REPLACE POTASSIUM AND MAGNESIUM DC TO HOME SEE RX DW RN AND PT AND CM [facility] 78-year-old man with Ileus versus Obstruction General Surgery Ileus versus Obstruction, okay for sips of clears, Enema, Small bowel follow through if no improvement. no nausea at this time, but had one episode of vomit early in the morning today. HAD OBSTRUCTION DUE TO TUMOR SP SURGERY TODAY 06-03 laparoscopic assisted right hemicolectomy -N.p.o. per surgery status post surgery today with laparoscopic assisted right hemicolectomy Has NG tube in place 1. Obstructing right colon cancer. POSITIVE NODES ONCOLOGY WILL BE CONSULTED PROCEDURE: Laparoscopic-assisted right hemicolectomy. 06-03 Right Colon cancer Patient diagnosed approximately 1 month ago at [facility], saw Dr. Lynn Records obtained, had colonoscopy which showed right: Large circumferential obstructing mass cephalad to hepatic flexure, possibly proximal most ascending invasive or involving cecum Pathology positive for invasive adenocarcinoma moderately differentiated Was scheduled for PET scan next week Has a laparoscopic-assisted right hemicolectomy June 03 PATHOLOGY PATHOLOGIC STAGE CLASSIFICATION (pTNM, AJCC 8th Edition): PRIMARY TUMOR: pT3. REGIONAL LYMPH NODES: pN2a. TERMINAL ILEUM, COLON, AND APPENDIX, RIGHT HEMICOLECTOMY: - MODERATELY DIFFERENTIATED ADENOCARCINOMA OBLITERATING THE ILEOCECAL VALVE AND INVADING DILMA-COLONIC SOFT TISSUE. - METASTATIC ADENOCARCINOMA TO SIX OF TWELVE LYMPH NODES (6/12). - ONE DILMA-COLONIC TUMOR DEPOSIT. RESECTION MARGINS ARE NEGATIVE FOR MALIGNANCY CT OF CHEST SHOWS NO METASTASIS Hypertension -Currently on atenolol Seizure disorder -continue Dilantin and Tranxene Seizure precautions SCDs for DVT prophylaxis PAIN CONTROL NEEDED VERY SLOW PROGRESS PT AND OT POSITIVE NODES CONSULT ONCOLOGY SEEN BY SURGERY AND ONCOLOGY HYPOKALEMIA AND HYPOMAG REPLACED HAS ANEMIA DS: Diagnosis - Discharge Diagnosis (1) Abdominal pain Status: Acute (2) Colon cancer Status: Acute (3) Seizure disorder Status: Chronic (4) HTN (hypertension) Status: Chronic DS: Medications - Discharge Medications Prescriptions: hydrocodone-acetaminophen 2 tab PO Q4H PRN #40 tab PRN Reason: Pain pantoprazole [Protonix] 40 mg PO BID #60 tab DS: Summary Hospital Course: 78-year-old male with a past medical history significant for newly diagnosed colon cancer, seizure disorder and hypertension presents to the emergency department with a 4-day history of constipation with abdominal pain and bloating. The patient reports at 3 AM this morning he had severe abdominal pain and bloating. He took a Dulcolax which worsened his symptoms. He then reports multiple episodes of nonbloody nonbilious emesis that have continued throughout the day. He denies any chest pain or shortness of breath. No fever/ chills. No lateralizing signs/symptoms. 05-31 Follow-up for abdominal pain, ileus versus small bowel obstruction, recent diagnosis of colon cancer-patient seen and examined, complains of right abdomen pain, no BM times a week. No nausea and no vomiting since yesterday. No chest pain, no shortness of breath. No fever overnight. Family at bedside. Spoke to Dr. Diez this morning, possible surgery next week. 06-01 Follow-up enteritis mild ileus/colon cancer?/Constipation June 01, 2018-patient seen and examined, no BM times 6 days, currently n.p.o. times 3 days. States he is passing out gas. Case discussed with patient and his 06-02 Follow-up enteritis mild ileus/colon cancer?/Constipation 06/02: Seen in his bedroom discussed with nurse Miss Fregoso, patient walking at this time with his as per General Surgery Ileus versus Obstruction, okay for sips of clears, Enema , Small bowel follow through if no improvement. no nausea at this time, but had one episode of vomit early in the morning today. 06-[address] DIEZ TODAY LAPAROSCOPIC-ASSISTED RIGHT HEMICOLECTOMY BY DR WILFRID DIEZ ON 06-03 FOR OBSTRUCTING RIGHT COLON CANCER 06-04 HAS NGT STILL POSITIVE HICCUPS HAVING ICE CHIPS DW RN AND PT AND FAMILY AM LABS 06-05 STILL HAD SOME ABDOMINAL PAIN LAST NIGHT STILL USING ETL DEVELOPER DW RN AND PT AND FAMILY AND CM VERY SLOW PROGRESS AM LABS 06-06 PULLED HIS NGT OUT DW SURGEON INCREASE ACTIVITY DIET PER SURGERY AM LABS 06-07 SEEN BY ONCOL[address]Y HAD CT OF CHEST DW RN AND PT AND FAMILY AND CM AM LABS VERY POOR ORAL INTAKE STILL BUT DID HAVE A BOWEL MOVEMENT 06-08 TOLERATING A DIET BETTER ATE WELL FOR DINNER NOT SO GOOD FOR BREAKFAST DW RN AND PATIENT AND CM 06-09 WANTS TO GO HOME REPLACE POTASSIUM AND MAGNESIUM DC TO HOME SEE RX DW RN AND PT AND CM [facility] 78-year-old man with Ileus versus Obstruction General Surgery Ileus versus Obstruction, okay for sips of clears, Enema, Small bowel follow through if no improvement. no nausea at this time, but had one episode of vomit early in the morning today. HAD OBSTRUCTION DUE TO TUMOR SP SURGERY TODAY 06-03 laparoscopic assisted right hemicolectomy -N.p.o. per surgery status post surgery today with laparoscopic assisted right hemicolectomy Has NG tube in place 1. Obstructing right colon cancer. POSITIVE NODES ONCOLOGY WILL BE CONSULTED PROCEDURE: Laparoscopic-assisted right hemicolectomy. 06-03 Right Colon cancer Patient diagnosed approximately 1 month ago at [facility], saw Dr. Lynn Records obtained, had colonoscopy which showed right: Large circumferential obstructing mass cephalad to hepatic flexure, possibly proximal most ascending invasive or involving cecum Pathology positive for invasive adenocarcinoma moderately differentiated Was scheduled for PET scan next week Has a laparoscopic-assisted right hemicolectomy June 03 PATHOLOGY PATHOLOGIC STAGE CLASSIFICATION (pTNM, AJCC 8th Edition): PRIMARY TUMOR: pT3. REGIONAL LYMPH NODES: pN2a. TERMINAL ILEUM, COLON, AND APPENDIX, RIGHT HEMICOLECTOMY: - MODERATELY DIFFERENTIATED ADENOCARCINOMA OBLITERATING THE ILEOCECAL VALVE AND INVADING DILMA-COLONIC SOFT TISSUE. - METASTATIC ADENOCARCINOMA TO SIX OF TWELVE LYMPH NODES (6/12). - ONE DILMA-COLONIC TUMOR DEPOSIT. RESECTION MARGINS ARE NEGATIVE FOR MALIGNANCY CT OF CHEST SHOWS NO METASTASIS Hypertension -Currently on atenolol Seizure disorder -continue Dilantin and Tranxene Seizure precautions SCDs for DVT prophylaxis PAIN CONTROL NEEDED VERY SLOW PROGRESS PT AND OT POSITIVE NODES CONSULT ONCOLOGY SEEN BY SURGERY AND ONCOLOGY HYPOKALEMIA AND HYPOMAG REPLACED HAS ANEMIA [facility] Prescription Drug Monitoring Database has been queried and verified prior to prescribing the controlled substance. Acute pain exception. This patient has normal, predicted, physiological, and time limited response to an adverse mechanical stimulus associated with surgery, trauma, or acute illness as described in my notes. There is a lack of alternative treatment options other than to include the prescribed narcotic treatment for this condition. - Time Spent with Patient Total time spent providing and/or coordinating discharge services: Greater than 30 minutes - Quality: VTE Deep Vein Thrombosis/Pulmonary Embolism Present on Admission: No Exam Vital signs: Vital Signs 06/08/18 12:00 06/08/18 16:00 06/08/18 20:00 Temperature 98.0 F 97.6 F 97.8 F Pulse Rate 68 66 68 Respiratory Rate 17 17 20 Blood Pressure 163/73 H 166/70 H 153/71 H Pulse Oximetry 97 98 99 06/09/18 00:00 06/09/18 04:00 06/09/18 08:00 Temperature 97.9 F 97.3 F L 97.4 F L Pulse Rate 73 65 63 Respiratory Rate 20 20 17 Blood Pressure 154/68 H 149/70 H 170/74 H Pulse Oximetry 97 100 97 Intake & Output 06/08/18 06/09/18 06/09/18 18:59 06:59 18:59 Intake Total 1800 / 1800 0 / 0 Balance 1800 / 1800 0 / 0 Weight 78.3 kg Intake: Oral 1800 / 1800 Other 0 / 0 Other: # Voids 5 3 Date of Last Bowel Movement 06/08/18 06/09/18 # Bowel Movements 3 2 Narrative: General: No acute distress. Head: Normocephalic. Atraumatic. EENT: Pupils equal round and reactive to light. Nose without drainage. Airway intact. Throat without injection.NGT IN PLACE Cardiovascular: Regular rate and rhythm. No murmurs, rubs or gallops. S1, S2 NO S3 OR S4 Respiratory: Lungs clear to auscultation bilaterally. No wheezes or rhonchi. Abdomen: LESS Distended. LESS Tender to palpation to right upper and right lower quadrant. No peritoneal signs. POSITIVE BS DRESSED Musculoskeletal: No gross deformities. No edema. Skin: No obvious rashes or erythema. Neuro: Awake, alert oriented x3. No focal deficits. Results Procedures completed during hospitalization: DATE OF OPERATION: 06/03/2018 PREOPERATIVE DIAGNOSIS: Obstructing right colon cancer. POSTOPERATIVE DIAGNOSES: 1. Obstructing right colon cancer. 2. He has bilateral inguinal hernias. PROCEDURE: Laparoscopic-assisted right hemicolectomy. SURGEON: Wilfrid Diez MD Completed studies during hospitalization: Pending at discharge 06/03/18 07:53 Surgical [PTH] Routine Labs on day of discharge: Labs from last 24 hours 06/09/18 06/09/18 03:32 03:32 WBC 11.2 H RBC 3.40 L Hgb 8.3 L Hct 25.6 L MCV 75.3 L MCH 24.4 L MCHC 32.5 RDW 18.9 H Plt Count 194 MPV 7.1 Neut % (Auto) 74.9 H Lymph % (Auto) 14.3 [place] % (Auto) 8.0 Eos % (Auto) 2.3 Baso % (Auto) 0.5 Neut # (Auto) 8.3 H Lymph # (Auto) 1.6 [place] # (Auto) 0.9 Eos # (Auto) 0.3 Baso # (Auto) 0.1 WBC Differential . Differential Comment Auto diff final Sodium 145 Potassium 3.3 L Chloride 112 H Carbon Dioxide 25.2 Anion Gap 8 BUN 11 Creatinine 0.53 L Estimated GFR Greater than 89 Random Glucose 111 H Calcium 7.5 L Phosphorus 1.2 L Magnesium 1.7 Total Bilirubin 0.3 AST 32 ALT 24 Alkaline Phosphatase 59 Total Protein 5.8 L Albumin 2.3 L - Impressions ITS Impressions Abdomen/Pelvis CT 05/30/18 19:10 CONCLUSION: 1. Multiple loops of thickened small bowel in the mid and distal portion most characteristic of an enteritis. Mild dilatation of proximal small bowel likely from associated ileus. There is gas within the partially decompressed colon. 2. Nonobstructing small lower pole left renal calculus. Calcified gallstone. Mild fatty liver. Abdomen X-Ray 06/03/18 00:00 CONCLUSION: 1. Bowel gas pattern is consistent with persistent small bowel obstruction versus severe adynamic ileus. Chest CT 06/07/18 00:00 CONCLUSION: 1. No definite evidence for metastatic disease to the chest. 2. Interval development of small bilateral pleural effusions effusions with minimal ascites present around the liver and spleen as well. No adenopathy in the chest. Discharge Plan - Discharge Disposition Patient Disposition: Discharge Home - Discharge Condition Condition: Stable - Discharge Order Discharge Orders: Discharge Order (Routine); Ordered 06/09/18 Ordered By: Oziel Beckman - Discharge Details Anticipated Discharge Date: 06/09/18 Discharge Comment: DC TO HOME - Physicians Team Primary Care Provider: [facility] Attending Provider: Oziel Beckman Other Providers: Wilfrid Diez MD ; Krupa Davis
[2018-06-09 12:03] VITALS: BP 149/70; PULSE 65; TEMP 97.9; O2SAT 99
--- NOTE | 2018-06-09 13:27 | P.PNGS ---
Subjective Patient reports: feels better, bowel movement Physical Exam Vital signs: Vital Signs 06/08/18 16:00 06/08/18 20:00 06/09/18 00:00 Temperature 97.6 F 97.8 F 97.9 F Pulse Rate 66 68 73 Respiratory Rate 17 20 20 Blood Pressure 166/70 H 153/71 H 154/68 H Pulse Oximetry 98 99 97 06/09/18 04:00 06/09/18 08:00 06/09/18 12:00 Temperature 97.3 F L 97.4 F L 97.9 F Pulse Rate 65 63 65 Respiratory Rate 20 17 17 Blood Pressure 149/70 H 170/74 H 149/70 H Pulse Oximetry 100 97 99 Intake & Output 06/08/18 06/09/18 06/09/18 18:59 06:59 18:59 Intake Total 1800 / 1800 0 / 0 Balance 1800 / 1800 0 / 0 Weight 78.3 kg Intake: Oral 1800 / 1800 Other 0 / 0 Other: # Voids 5 3 Date of Last Bowel Movement 06/08/18 06/09/18 # Bowel Movements 3 2 - Constitutional no acute distress - Routine Abdominal Exam Present: soft, normoactive bowel sounds. Absent: tenderness, distended, rebound , guarding Comments: inc c/d/i - Urinary Catheter Management Indwelling Urethral Catheter Cath placed during this visit: yes, but has since been removed by the nurse Reason for continuing: Decision to DC catheter Insertion date: 06/03/18 Insertion time: 13:42 Removal date: 06/04/18 Removal time: 11:00 Results - Labs 06/09/18 03:32 06/09/18 03:32 Laboratory Results - last 24 hr 06/09/18 06/09/18 03:32 03:32 WBC 11.2 H RBC 3.40 L Hgb 8.3 L Hct 25.6 L MCV 75.3 L MCH 24.4 L MCHC 32.5 RDW 18.9 H Plt Count 194 MPV 7.1 Neut % (Auto) 74.9 H Lymph % (Auto) 14.3 [place] % (Auto) 8.0 Eos % (Auto) 2.3 Baso % (Auto) 0.5 Neut # (Auto) 8.3 H Lymph # (Auto) 1.6 [place] # (Auto) 0.9 Eos # (Auto) 0.3 Baso # (Auto) 0.1 WBC Differential . Differential Comment Auto diff final Sodium 145 Potassium 3.3 L Chloride 112 H Carbon Dioxide 25.2 Anion Gap 8 BUN 11 Creatinine 0.53 L Estimated GFR Greater than 89 Random Glucose 111 H Calcium 7.5 L Phosphorus 1.2 L Magnesium 1.7 Total Bilirubin 0.3 AST 32 ALT 24 Alkaline Phosphatase 59 Total Protein 5.8 L Albumin 2.3 L - Imaging Imaging: ITS Impressions Abdomen/Pelvis CT 05/30/18 19:10 CONCLUSION: 1. Multiple loops of thickened small bowel in the mid and distal portion most characteristic of an enteritis. Mild dilatation of proximal small bowel likely from associated ileus. There is gas within the partially decompressed colon. 2. Nonobstructing small lower pole left renal calculus. Calcified gallstone. Mild fatty liver. Abdomen X-Ray 06/03/18 00:00 CONCLUSION: 1. Bowel gas pattern is consistent with persistent small bowel obstruction versus severe adynamic ileus. Chest CT 06/07/18 00:00 CONCLUSION: 1. No definite evidence for metastatic disease to the chest. 2. Interval development of small bilateral pleural effusions effusions with minimal ascites present around the liver and spleen as well. No adenopathy in the chest. Assessment and Plan - Assessment (1) Colon cancer Code(s): C18.9 - Malignant neoplasm of colon, unspecified Status: Acute - Plan 78yo male s/p right colectomy, stable. BM, pain ok, no complications, DC home (1) Colon cancer Qualifiers: Colon location: ascending Qualified Code(s): C18.2 - Malignant neoplasm of ascending colon
== END 2018-06-09 14:39 | disposition home or self-care (01) ==
LOC: NEPC 15:52 → NEDA 15:52 → NEDH 05-31 02:40 → N07 05-31 07:42
PROVIDERS: ADMIT Hospitalist; ATTEND Hospitalist

== ENCOUNTER 2018-07-12 16:08 | Inpatient (IN) ==
[2018-07-12 17:39] LABS: Baso % (Auto) 0.5 % (0.0-2.0); Eos # (Auto) 0.4 th/mm3 (0.0-0.4); Eos % (Auto) 5.2 % (0.0-4.0); Hematocrit 28.3 % (39.0-51.0); Lymph # (Auto) 2.4 th/mm3 (1.0-4.8); Lymph % (Auto) 28.3 % (9.0-44.0); Mean Corpuscular Hemoglobin 25.2 pg (27.0-34.0); Mean Corpuscular Volume 78.8 fL (80.0-100.0); Mean Platelet Volume 6.9 fL (7.0-11.0); Mono # (Auto) 0.6 th/mm3 (0.0-0.9); Neut # (Auto) 4.9 th/mm3 (1.8-7.7); Platelet Count 288 th/mm3 (150-450); Red Blood Count 3.59 mil/mm3 (4.50-5.90); Red Cell Distribution Width 18.6 % (11.6-17.2); White Blood Count 8.4 th/mm3 (4.0-11.0)
[2018-07-12 17:49] LABS: Activated Partial Thrombo Time 29.6 sec (23.4-31.7); INR 1.1 Ratio; Prothrombin Time 11.5 sec (9.8-11.6)
[2018-07-12 18:14] LABS: Alanine Aminotransferase 24 U/L (12-78); Albumin 3.1 g/dL (3.4-5.0); Anion Gap 7 meq/L (5-15); Aspartate Aminotransferase 30 U/L (15-37); Blood Urea Nitrogen 12 mg/dL (7-18); Calcium 8.1 mg/dL (8.5-10.1); Carbon Dioxide 26.3 meq/L (21.0-32.0); Chloride 109 meq/L (98-107); Glomerular Filtration Rate Greater Than 89 mL/min (>89); Glucose,Random 89 mg/dL (74-106); Potassium 4.1 meq/L (3.5-5.1); Sodium 142 meq/L (136-145)
[2018-07-12 18:16] LABS: Alkaline Phosphatase 88 U/L (45-117); Total Protein 7.5 g/dL (6.4-8.2)
[2018-07-12] MEDS ORDERED: Acetaminophen 325 MG Tablet PO PRN (19:11)
[2018-07-12] MEDS ORDERED: Bisacodyl 10 MG Supp RECTAL PRN (19:11)
[2018-07-12] MEDS ORDERED: Morphine Sulfate Inj 2 MG/ML Vial IV.PUSH PRN (19:13)
--- NOTE | 2018-07-12 19:15 | P.HPIM ---
History of Present Illness Primary Care Physician: Physician [facility] History of Present Illness: This is a 78-year-old male with a PMH of HTN, this is a 78-year-old male with a PMH of HTN, Hyperlipidemia, Seizure Disorder and Colon CA who was referred to the ER for abnormal CT showing PE. Recent admit 05/30-06/07/18 w/ newly diagnosed Colon CA, s/p hemicolectomy by Dr. Sylvester on 06/03/18, s/p Port Placement, and following w/ Dr. Davis w/ plans for starting Chemo on Sunday. States he was sent for imaging today-believes it was a PET-CT, and was called by physician to come to ER for admission due to PE. No records available at this time, per report, pt noted to have bilateral PE. Pt currently without complaints, no chest pain or SOB. No h/o PE. Currently on Heparin gtt. - Diagnosis (1) PE (pulmonary thromboembolism) (2) Colon cancer (3) Seizure disorder Review of Systems PAST FAMILY HISTORY: Reviewed. No h/o DM or CAD All other systems reviewed negative except as stated in HPI [facility] - History History Provided By: Patient - Medical History Medical History: Medical History (Last Reviewed 07/12/18 @ 19:41 by JS Sky) Anxiety Colon cancer Epilepsy Hypertension - Surgical History Surgical History: Surgical History (Last Reviewed 07/12/18 @ 19:41 by JS Sky) History of colon surgery History of facial surgery History of vascular access device History of ankle surgery - Family History Family History: Family History (Last Reviewed 07/12/18 @ 19:41 by JS Sky) Other Diabetes mellitus - Tobacco History Second Hand Smoke Exposure: No Smoking Status: Never smoker Tobacco Type: Cigarettes - Alcohol History How Often Do You Have a Drink Containing Alcohol: Never - Substance Use History Substance History: No History of Abuse - Travel History Recent Travel in the [place] Within the Last 8 Weeks: No Recent Travel Out of the Country Within the Last 8 Weeks: No - Immunization History Tetanus Immunization: >5 Years Medications and Allergies Active Medications: Active Medications Acetaminophen (Tylenol) 650 mg PO Q4H PRN PRN Reason: Temp > 100.4 Hydrocodone Bitart/Acetaminophen ([place] 5/325) 1 tab PO Q4H PRN PRN Reason: PAIN 6-10 Al Hydroxide/Mg Hydroxide (Milk Of Magnesia Liq) 30 ml PO Q12H PRN PRN Reason: Mild Constipation Albuterol (Duoneb Neb (Prn)) 1 ampul NEB Q4HR NEB PRN PRN Reason: SOB/WHEEZING Aspirin (Aspirin Chew) 81 mg PO DAILY MATHEW Atenolol (Tenormin) 50 mg PO DAILY MATHEW Bisacodyl (Dulcolax Supp) 10 mg RECTAL DAILY PRN PRN Reason: SEVERE CONSITIPATION Budesonide/Formoterol Fumarate (Symbicort 160/4.5 Mcg Inh) 2 puff INH BID [facility] Fluticasone Propionate (Flonase Nasal [place]) spray EACH NARE TID MATHEW Lactulose (Lactulose Liq) 30 ml PO DAILY PRN PRN Reason: SEVERE CONSITIPATION Morphine Sulfate (Morphine Inj) 2 mg IV.PUSH Q4H PRN PRN Reason: PAIN 6-10 Non-Formulary Medication (Clorazepate Dipotassium [Clorazepate Dipotassium]) 3.75 mg PO HS MATHEW Non-Formulary Medication (Clorazepate Dipotassium [Clorazepate Dipotassium]) 7.5 mg PO DAILY NEB [facility] Non-Formulary Medication (Multivitamin [Multivitamin]) 1 tab PO QAM MATHEW Ondansetron HCl (Zofran Inj) 4 mg IV.PUSH Q6H PRN PRN Reason: NAUSEA OR VOMITING Pantoprazole Sodium (Protonix) 40 mg PO BID [facility] Phenytoin Sodium (Dilantin) 100 mg PO TID [facility] Senna/Docusate Sodium ([place]-Colace) 1 tab PO BID [facility] Sennosides (Senokot) 17.2 mg PO Q12H PRN PRN Reason: Moderate Constipation Sodium Chloride (Ns Flush) 2 ml IV.FLUSH BID MATHEW Sodium Chloride (Ns Flush) 2 ml IV.FLUSH PRN PRN PRN Reason: FLUSH AFTER USING IV ACCESS Zonisamide (Zonegran) 100 mg PO BID MATHEW Allergies Allergy/AdvReac Type Severity Reaction Status Date / Time gabapentin Allergy Rash Verified 07/12/18 16:38 Home Medications Medication Instructions Recorded Confirmed Type aspirin 81 mg PO DAILY 05/30/18 07/12/18 History phenytoin sodium extended 100 mg PO TID 05/30/18 07/12/18 History [Dilantin Extended] atenolol 50 mg PO DAILY 05/31/18 07/12/18 History cholecalciferol (vitamin D3) 1,000 unit PO DAILY 05/31/18 07/12/18 History [Vitamin D3] clorazepate dipotassium 3.75 mg PO HS 05/31/18 07/12/18 History ferrous sulfate [Iron (ferrous 325 mg PO HS 05/31/18 07/12/18 History sulfate)] fluticasone 50 mcg INTRANASAL TID 05/31/18 07/12/18 History ibuprofen [IBU] 600 mg PO TID PRN 05/31/18 07/12/18 History loratadine 10 mg PO DAILY 05/31/18 07/12/18 History multivitamin 1 tab PO QAM 05/31/18 07/12/18 History zonisamide 100 mg PO BID 05/31/18 07/12/18 History clorazepate dipotassium 7.5 mg PO DAILY NEB 07/12/18 07/12/18 History Exam Vital signs: Vital Signs 07/12/18 16:34 07/12/18 17:07 07/12/18 17:21 Temperature 98.3 F 98.2 F Pulse Rate 54 L 62 60 Respiratory Rate 18 18 Blood Pressure 145/67 H 157/77 H Pulse Oximetry 100 100 99 07/12/18 18:00 Temperature 98.1 F Pulse Rate 61 Respiratory Rate 18 Blood Pressure 148/76 H Pulse Oximetry 99 Intake & Output 07/12/18 07/12/18 07/13/18 06:59 18:59 06:59 Weight 69.853 kg Narrative: PE: GENERAL: Extremely pleasant elderly white male in no acute distress. SKIN: Focused skin assessment warm and dry. HEENT: PERRLA, EOMI. No scleral icterus or conjunctival pallor. No lid lag or facial droop. CARDIOVASCULAR: Regular rate and rhythm. No obvious murmurs to auscultation. No chest tenderness to palpation. RESPIRATORY: No obvious rhonchi or wheezing. Clear to auscultation. Breath sounds equal bilaterally. GASTROINTESTINAL: Abdomen soft, non-tender, nondistended. BS normal. MUSCULOSKELETAL: Extremities without clubbing, cyanosis, or edema. No obvious deformities. NEUROLOGICAL: Awake, alert and oriented x4. No focal neurologic deficits. Moving both upper and lower extremities spontaneously. PSYCHIATRIC: Appropriate mood and affect. Insight and judgment normal. Results - Labs CBC & Chem 7: 07/12/18 17:18 07/12/18 17:18 Labs: Short CBC 07/12/18 Range/Units 17:18 WBC 8.4 (4.0-11.0) th/mm3 Hgb 9.0 L (13.0-17.0) gm/dL Hct 28.3 L (39.0-51.0) % Plt Count 288 (150-450) th/mm3 BMP 07/12/18 17:18 Sodium 142 Potassium 4.1 Chloride 109 H Carbon Dioxide 26.3 BUN 12 Creatinine 0.72 Calcium 8.1 L Liver Function 07/12/18 Range/Units 17:18 Total Bilirubin 0.1 L (0.2-1.0) mg/dL AST 30 (15-37) U/L ALT 24 (12-78) U/L Alkaline Phosphatase 88 (45-117) U/L Albumin 3.1 L (3.4-5.0) g/dL Caprini VTE Risk Assessment Caprini VTE Risk Assessment: Moderate/High Risk (score >= 2) Caprini Risk Assessment Model: Point Value = 1 Point Value = 2 Point Value = 3 Point Value = 5 Age 41-60 Minor surgery BMI > 25 kg/m2 Swollen legs Varicose veins or History of unexplained or recurrent spontaneous Oral contraceptives or hormone replacement Sepsis (< 1 month) Serious lung disease, including pneumonia (< 1 month) Abnormal pulmonary function Acute myocardial infarction Congestive heart failure (< 1 month) History of inflammatory bowel disease Medical patient at bed rest Age 61-74 Arthroscopic surgery Major open surgery (> 45 min) Laparoscopic surgery (> 45 min) Malignancy Confined to bed (> 72 hours) Immobilizing plaster cast Central venous access Age >= 75 History of VTE Family history of VTE Factor V Leiden Prothrombin [id number] Lupus anticoagulant Anticardiolipin antibodies Elevated serum homocysteine Heparin-induced thrombocytopenia Other congenital or acquired thrombophilia Stroke (< 1 month) Elective arthroplasty Hip, pelvis, or leg fracture Acute spinal cord injury (< 1 month) Prophylaxis Regimen: Total Risk Factor Score Risk Level Prophylaxis Regimen 0-1 Low Early ambulation 2 Moderate Order ONE of the following: *Sequential Compression Device (SCD) *Heparin 5000 units SQ BID 3-4 Higher Order ONE of the following medications: *Heparin 5000 units SQ TID *Enoxaparin/Lovenox 40 mg SQ daily (WT < 150 kg, CrCl > 30 mL/min) *Enoxaparin/Lovenox 30 mg SQ daily (WT < 150 kg, CrCl > 10-29 mL/min) *Enoxaparin/Lovenox 30 mg SQ BID (WT < 150 kg, CrCl > 30 mL/min) AND/OR *Sequential Compression Device (SCD) 5 or more Highest Order ONE of the following medications: *Heparin 5000 units SQ TID (Preferred with Epidurals) *Enoxaparin/Lovenox 40 mg SQ daily (WT < 150 kg, CrCl > 30 mL/min) *Enoxaparin/Lovenox 30 mg SQ daily (WT < 150 kg, CrCl > 10-29 mL/min) *Enoxaparin/Lovenox 30 mg SQ BID (WT < 150 kg, CrCl > 30 mL/min) AND *Sequential Compression Device (SCD) Assessment and Plan - Assessment (1) PE (pulmonary thromboembolism) Code(s): I26.99 - Other pulmonary embolism without acute cor pulmonale Status : Acute (2) Colon cancer Code(s): C18.9 - Malignant neoplasm of colon, unspecified Status: Acute (3) Seizure disorder Code(s): G40.909 - Epilepsy, unspecified, not intractable, without status epilepticus Status: Chronic - Plan A/P: 1. PE: referred to ER from [place] for outpatient imaging showing bilateral PE, [facility]. Currently on Heparin gtt, will continue at this time. If unable to obtain records from [place], will re-image in am for confirmation of findings, as this would affect long-term therapy. DuoNeb prn, Symbicort for possible bronchospasm. Will check Echo to eval for cardiac strain. Initial trop negative, will check serial cardiac enzymes 2. Colon CA: recently diagnosed, s/p Hemicolectomy by Dr. Sylvester 06/03/18, s/p port placement, following w/ Dr. Davis, plan to initiate chemo on Sunday, will consult Dr. Davis for further eval 3. Seizure Disorder: Chronic. Will restart home medications 4. DVT Prophylaxis: On Heparin gtt 5. Social work for d/c planning as needed 6. Case discussed w/ ER physician at length, labs/records/imaging reviewed by me. (2) Colon cancer Qualifiers: Colon location: ascending Qualified Code(s): C18.2 - Malignant neoplasm of ascending colon
[2018-07-12] MEDS ORDERED: Heparin Drip 25,000 UNIT/250 ML BAG IV.CONT PRN (19:35)
--- NOTE | 2018-07-12 19:44 | ED ---
HPI General Chief complaint: Shortness of Breath/Dyspnea Stated complaint: DR zazueta-blood clots in lungs Time Seen by Provider: 07/12/18 17:06 Source: patient and family Mode of arrival: ambulatory Limitations: no limitations History of Present Illness HPI narrative: 78-year-old male presents to the ED for evaluation of abnormal CAT scan. Per patient he was seen at the [facility] and had a CAT scan of his chest order as they were looking for metastasis of his colon cancer. He had a resection of his colon cancer done at this hospital recently. Per patient he has had no issues but they are about to start chemotherapy on him and they were doing a CAT scan to see if he had any metastasis of his cancer. Prior patient he got a call today 2 hours after having his CAT scan to the CAT scan came abnormal. The told that he had a pulmonary embolism and he needed to come here to get admitted to the hospital. Per patient he was not given the report specifically of the CAT scan. This was done at the [facility]. Patient has no chest pain or shortness of breath. No other medical issues other than the colon cancer. Denies any urinary or bowel movement issues. No fevers chills or sweats. Per patient he has a cough that he has had for almost a year now. He has no pain whatsoever. Related Data Home Medications Medication Instructions Recorded Confirmed aspirin 81 mg PO DAILY 05/30/18 07/12/18 phenytoin sodium extended 100 mg PO TID 05/30/18 07/12/18 [Dilantin Extended] atenolol 50 mg PO DAILY 05/31/18 07/12/18 cholecalciferol (vitamin D3) 1,000 unit PO DAILY 05/31/18 07/12/18 [Vitamin D3] clorazepate dipotassium 3.75 mg PO HS 05/31/18 07/12/18 ferrous sulfate [Iron (ferrous 325 mg PO HS 05/31/18 07/12/18 sulfate)] fluticasone 50 mcg INTRANASAL TID 05/31/18 07/12/18 ibuprofen [IBU] 600 mg PO TID PRN 05/31/18 07/12/18 loratadine 10 mg PO DAILY 05/31/18 07/12/18 multivitamin 1 tab PO QAM 05/31/18 07/12/18 zonisamide 100 mg PO BID 05/31/18 07/12/18 clorazepate dipotassium 7.5 mg PO DAILY NEB 07/12/18 07/12/18 Previous Rx's Medication Instructions Recorded hydrocodone-acetaminophen 2 tab PO Q4H PRN #40 tab 06/09/18 pantoprazole [Protonix] 40 mg PO BID #60 tab 06/09/18 Allergies Allergy/AdvReac Type Severity Reaction Status Date / Time gabapentin Allergy Rash Verified 07/12/18 16:38 Review of Systems ROS: all other systems reviewed are negative [facility] Medical History Medical History Anxiety (Acute) Colon cancer (Acute) Epilepsy (Acute) Hypertension (Acute) Surgical History Surgical History History of colon surgery (Acute) History of facial surgery (Acute) History of vascular access device (Acute) History of ankle surgery (Acute) Family History Family History Other Diabetes mellitus Social History Social History Substance History: No History of Abuse Second Hand Smoke Exposure: No Smoking Status: Never smoker Tobacco Type: Cigarettes How Often Do You Have a Drink Containing Alcohol: Never Recent Travel in [facility] within the Last 8 Weeks: No Recent Out of Country Travel within the Last 8 Weeks: No Immunization History Tetanus Immunization: >5 Years Exam Narrative Exam Narrative: GENERAL: Well-appearing SKIN: Focused skin assessment warm/dry. HEAD: Atraumatic. Normocephalic. EYES: Pupils equal and round. No scleral icterus. No injection or drainage. ENT: No nasal bleeding or discharge. Mucous membranes pink and moist. NECK: Trachea midline. No JVD. CARDIOVASCULAR: Regular rate and rhythm. No murmur appreciated. RESPIRATORY: No accessory muscle use. Clear to auscultation. Breath sounds equal bilaterally. GASTROINTESTINAL: Abdomen soft, non-tender, nondistended. Hepatic and splenic margins not palpable. MUSCULOSKELETAL: No obvious deformities. No clubbing. No cyanosis. No edema. Full range of motion of the upper and lower extremities bilaterally. 2+ pulses bilaterally. NEUROLOGICAL: Awake and alert. No obvious cranial nerve deficits. Motor grossly within normal limits. Normal speech. PSYCHIATRIC: Appropriate mood and affect; insight and judgment normal. Course Initial Documented Vital Signs Temperature 98.3 F 07/12/18 16:34 Pulse Rate 54 L 07/12/18 16:34 Respiratory Rate 18 07/12/18 16:34 Blood Pressure 145/67 H 07/12/18 16:34 Pulse Oximetry 100 07/12/18 16:34 Last Documented Vital Signs Temperature 98.2 F 07/12/18 19:00 Pulse Rate 62 07/12/18 19:19 Respiratory Rate 20 07/12/18 19:19 Blood Pressure 130/60 07/12/18 19:19 Pulse Oximetry 98 07/12/18 19:19 Medical Decision Making MOSES Attestation MOSES supervised visit: Yes Attestation: I, Dr. Macias, have reviewed the advance practice practitioner's documentation and am in agreement, met with the patient face to face, made the diagnosis, and the medical decision making was done by me. See his note for further details. This is a 78-year-old male with recently diagnosed colon cancer who underwent hemicolectomy here on 06/03/[address] Benito Sylvester, scheduled to start chemotherapy in 3 days on Sunday with oncologist Dr. Davis, sent in from the [facility] after having had a CT of his chest today that revealed bilateral pulmonary embolisms. Patient did have some leg pain/cramping throughout last week which has improved. He has had a nonproductive cough. He denies hemoptysis. No fevers. Call was placed to the [facility] to attempt to obtain a copy of the CT report, however they were closed by the time the patient arrived to our hospital. Because the patient was given IV contrast this morning for that study, we were unable to repeat the study here in the emergency department. Because of his history of cancer, the patient is at risk for developing DVT/PE. He did have major surgery, however this was 6 weeks ago. He will be started on a heparin drip without bolus, and will be admitted for further treatment and evaluation of presumed PEs. He is amenable to this plan. MDM Narrative Medical decision making narrative: 78-year-old male presents to the ED for evaluation of abnormal CT scan. Patient was probably examined and was found to have signs and symptoms consistent with appears to be PE. I did go the report of 1 of her nurses here obtained from the doctor from the [facility]. The doctor the left number for us to call back but unfortunately this is the number for his office which by the time the patient was in a room was after 5 unfortunate were not able to get the report of the CT scan. Patient per report from the ED nurse that obtain the report has bilateral PEs. Labs were done here. CTA was ordered but unfortunately because patient just had a CT scan with contrast he cannot get another CT per radiology. Case was discussed with my attending Dr. Macias who spoke with Dr. Swan for admission team who agrees to admission to his service. We will start on heparin drip for now. Patient and family agree with this. Medical Screen Exam Complete: Yes Emergency Medical Condition: Yes Differential Diagnosis Differential Diagnosis: PE versus abnormal CAT scan versus chest pain is atypical chest pain Medical Records Medical records reviewed: Yes I reviewed the patient's medical records. Lab Data Lab results reviewed: Yes I reviewed the patient's lab results. Result diagrams: 07/12/18 17:18 07/12/18 17:18 Lab Results 07/12/18 07/12/18 07/12/18 Range/Units 17:18 17:18 17:18 WBC 8.4 (4.0-11.0) th/mm3 RBC 3.59 L (4.50-5.90) mil/mm3 Hgb 9.0 L (13.0-17.0) gm/dL Hct 28.3 L (39.0-51.0) % MCV 78.8 L (80.0-100.0) fL MCH 25.2 L (27.0-34.0) pg MCHC 32.0 (32.0-36.0) % RDW 18.6 H (11.6-17.2) % Plt Count 288 (150-450) th/mm3 MPV 6.9 L (7.0-11.0) fL Neut % (Auto) 59.0 (16.0-70.0) % Lymph % (Auto) 28.3 (9.0-44.0) % [place] % (Auto) 7.0 (0.0-8.0) % Eos % (Auto) 5.2 H (0.0-4.0) % Baso % (Auto) 0.5 (0.0-2.0) % Neut # (Auto) 4.9 (1.8-7.7) th/mm3 Lymph # (Auto) 2.4 (1.0-4.8) th/mm3 [place] # (Auto) 0.6 (0.0-0.9) th/mm3 Eos # (Auto) 0.4 (0.0-0.4) th/mm3 Baso # (Auto) 0.0 (0.0-0.2) th/mm3 WBC Differential . Differential Comment Auto diff final PT 11.5 (9.8-11.6) sec INR 1.1 Ratio APTT 29.6 (23.4-31.7) sec Sodium 142 (136-145) meq/L Potassium 4.1 (3.5-5.1) meq/L Chloride 109 H (98-107) meq/L Carbon Dioxide 26.3 (21.0-32.0) meq/L Anion Gap 7 (5-15) meq/L BUN 12 (7-18) mg/dL Creatinine 0.72 (0.60-1.30) mg/dL Estimated GFR Greater than 89 (>89) mL/min Random Glucose 89 (74-106) mg/dL Calcium 8.1 L (8.5-10.1) mg/dL Total Bilirubin 0.1 L (0.2-1.0) mg/dL AST 30 (15-37) U/L ALT 24 (12-78) U/L Alkaline Phosphatase 88 (45-117) U/L Total Protein 7.5 (6.4-8.2) g/dL Albumin 3.1 L (3.4-5.0) g/dL Discharge Plan Discharge Disposition Patient Disposition: 30 Still Patient Discharge Details Diagnosis: Pulmonary emboli Physicians Team ED Provider: Milad Macias ED Midlevel Provider: Sim Gardner Primary Care Provider: [facility] R[facility] /Orders / Referrals /Forms Prescriptions: No Action phenytoin sodium extended [Dilantin Extended] 100 mg Capsule 100 mg PO TID RF: 0 aspirin 81 mg Tablet,Chewable 81 mg PO DAILY RF: 0 multivitamin Tablet 1 tab PO QAM RF: 0 clorazepate dipotassium 3.75 mg Tablet 3.75 mg PO HS RF: 0 ferrous sulfate [Iron (ferrous sulfate)] 325 mg (65 mg iron) Tablet 325 mg PO HS RF: 0 atenolol 50 mg Tablet 50 mg PO DAILY RF: 0 cholecalciferol (vitamin D3) [Vitamin D3] 1,000 unit Capsule 1,000 unit PO DAILY RF: 0 fluticasone 50 mcg/actuation [place],Suspension 50 mcg Intranasal TID RF: 0 zonisamide 100 mg Capsule 100 mg PO BID RF: 0 ibuprofen [IBU] 600 mg Tablet 600 mg PO TID PRN (Reason: Pain) RF: 0 loratadine 10 mg Tablet 10 mg PO DAILY RF: 0 hydrocodone-acetaminophen 5-325 mg Tablet 2 tab PO Q4H PRN (Reason: Pain) Qty: 40 RF: 0 pantoprazole [Protonix] 40 mg Tablet,Delayed Release (Dr/Ec) 40 mg PO BID Qty: 60 RF: 0 clorazepate dipotassium 7.5 mg Tablet 7.5 mg PO DAILY NEB RF: 0 Status ED Status: Admitted Patient
[2018-07-12] MEDS ORDERED: diazePAM 2 MG Tablet PO SCH (21:00)
[2018-07-12] MEDS: Senna/Docusate Sodium 8.6/50 MG Tablet PO SCH (21:10)
[2018-07-12] MEDS: Budesonide-Formoterol 160/4.5 MCG 6 GM Inhaler INH SCH (21:12)
[2018-07-13] MEDS ORDERED: diazePAM 5 MG Tablet PO SCH (09:00)
[2018-07-13 09:14] LABS: Baso # (Auto) 0.1 th/mm3 (0.0-0.2); Baso % (Auto) 0.8 % (0.0-2.0); Eos # (Auto) 0.3 th/mm3 (0.0-0.4); Eos % (Auto) 4.2 % (0.0-4.0); Hematocrit 30.8 % (39.0-51.0); Hemoglobin 9.4 gm/dL (13.0-17.0); Lymph % (Auto) 29.5 % (9.0-44.0); Mean Corpuscular Hemoglobin 24.1 pg (27.0-34.0); Mean Corpuscular Volume 79.2 fL (80.0-100.0); Mean Platelet Volume 6.9 fL (7.0-11.0); Mono # (Auto) 0.4 th/mm3 (0.0-0.9); Neut # (Auto) 4.1 th/mm3 (1.8-7.7); Neut % (Auto) 59.5 % (16.0-70.0); Platelet Count 285 th/mm3 (150-450); Red Blood Count 3.88 mil/mm3 (4.50-5.90); Red Cell Distribution Width 18.9 % (11.6-17.2); White Blood Count 6.9 th/mm3 (4.0-11.0)
[2018-07-13] MEDS: Atenolol 50 MG Tablet PO SCH (09:14)
[2018-07-13] MEDS: Senna/Docusate Sodium 8.6/50 MG Tablet PO SCH ×2 (09:14→21:43)
[2018-07-13] MEDS: Phenytoin Sodium 100 MG Capsule PO SCH ×3 (09:14→17:45)
[2018-07-13 09:16] LABS: Mean Corpuscular HGB Conc 30.4 % (32.0-36.0)
[2018-07-13 09:47] LABS: Albumin 2.9 g/dL (3.4-5.0); Anion Gap 6 meq/L (5-15); Aspartate Aminotransferase 26 U/L (15-37); Blood Urea Nitrogen 9 mg/dL (7-18); Calcium 8.8 mg/dL (8.5-10.1); Carbon Dioxide 24.3 meq/L (21.0-32.0); Chloride 110 meq/L (98-107); Glomerular Filtration Rate Greater Than 89 mL/min (>89); Glucose,Random 107 mg/dL (74-106); Potassium 3.7 meq/L (3.5-5.1); Sodium 140 meq/L (136-145)
[2018-07-13 09:48] LABS: Alanine Aminotransferase 22 U/L (12-78)
[2018-07-13 09:50] LABS: Alkaline Phosphatase 90 U/L (45-117)
[2018-07-13] MEDS ORDERED: Heparin Drip 25,000 UNIT/250 ML BAG IV.CONT PRN (11:31)
[2018-07-13] MEDS: Budesonide-Formoterol 160/4.5 MCG 6 GM Inhaler INH SCH ×2 (11:33→21:51)
--- NOTE | 2018-07-13 12:41 | P.PN ---
Subjective Interval history: awake and alert no chest discomfort/shortness of breath minimal dry cough jsut today- complains of leg pain- on exam- right leg bigger Physical Exam Vital signs: Vital Signs 07/12/18 16:34 07/12/18 17:07 07/12/18 17:21 Temperature 98.3 F 98.2 F Pulse Rate 54 L 62 60 Respiratory Rate 18 18 Blood Pressure 145/67 H 157/77 H Pulse Oximetry 100 100 99 07/12/18 18:00 07/12/18 19:00 07/12/18 19:19 Temperature 98.1 F 98.2 F Pulse Rate 61 60 62 Respiratory Rate 18 20 20 Blood Pressure 148/76 H 135/62 130/60 Pulse Oximetry 99 99 98 07/12/18 23:26 07/13/18 00:00 07/13/18 01:00 Temperature 97.4 F L Pulse Rate 56 L 56 L 52 L Respiratory Rate 20 18 Blood Pressure 127/66 140/63 Pulse Oximetry 95 07/13/18 02:00 07/13/18 03:00 07/13/18 03:51 Temperature Pulse Rate 52 L 50 L 55 L Respiratory Rate 16 Blood Pressure 134/59 L Pulse Oximetry 97 07/13/18 04:00 07/13/18 05:00 07/13/18 06:00 Temperature Pulse Rate 64 48 L 52 L Respiratory Rate Blood Pressure Pulse Oximetry 07/13/18 07:41 07/13/18 08:54 07/13/18 09:19 Temperature 97.9 F Pulse Rate 53 L 55 L 60 Respiratory Rate 16 Blood Pressure 136/69 Pulse Oximetry 99 07/13/18 10:00 07/13/18 10:10 07/13/18 11:00 Temperature Pulse Rate 76 48 L Respiratory Rate Blood Pressure Pulse Oximetry 99 07/13/18 11:06 07/13/18 12:00 Temperature 97.5 F L Pulse Rate 86 51 L Respiratory Rate 20 Blood Pressure 125/65 Pulse Oximetry 98 Intake & Output 07/12/18 07/13/18 07/13/18 18:59 06:59 18:59 Intake Total 300 / 300 220 / 220 Balance 300 / 300 220 / 220 Weight 69.853 kg 69.8 kg Intake: IV 220 / 220 Heparin/D5W 25,000 U/250 mL 25, 220 / 220 000 unit In 250 ml @ Per Protocol IV.CONT TITRATE PRN Rx #:[id number] Oral 300 / 300 Other: # Voids 1 Weight On Admission 70 kg Narrative: PE: GENERAL: Extremely pleasant elderly white male in no acute distress. HEENT: PERRLA, EOMI. No scleral icterus or conjunctival pallor. No lid lag or facial droop. CARDIOVASCULAR: Regular rate and rhythm. No chest tenderness to palpation. RESPIRATORY: clear to auscultation. Breath sounds equal bilaterally. GASTROINTESTINAL: Abdomen soft, non-tender, nondistended. BS normal. MUSCULOSKELETAL: right LE- bigger compared to left-, no calf tenderness NEUROLOGICAL: Awake, alert and oriented x4. No focal neurologic deficits. Moving both upper and lower extremities spontaneously. PSYCHIATRIC: Appropriate mood and affect. Insight and judgment normal. Results - Labs CBC & Chem 7: 07/13/18 08:49 07/13/18 08:49 Laboratory Results - last 24 hr 07/12/18 07/12/18 07/12/18 17:18 17:18 17:18 WBC 8.4 RBC 3.59 L Hgb 9.0 L Hct 28.3 L MCV 78.8 L MCH 25.2 L MCHC 32.0 RDW 18.6 H Plt Count 288 MPV 6.9 L Neut % (Auto) 59.0 Lymph % (Auto) 28.3 [place] % (Auto) 7.0 Eos % (Auto) 5.2 H Baso % (Auto) 0.5 Neut # (Auto) 4.9 Lymph # (Auto) 2.4 [place] # (Auto) 0.6 Eos # (Auto) 0.4 Baso # (Auto) 0.0 WBC Differential . Differential Comment Auto diff final PT 11.5 INR 1.1 APTT 29.6 Sodium 142 Potassium 4.1 Chloride 109 H Carbon Dioxide 26.3 Anion Gap 7 BUN 12 Creatinine 0.72 Estimated GFR Greater than 89 Random Glucose 89 Calcium 8.1 L Total Bilirubin 0.1 L AST 30 ALT 24 Alkaline Phosphatase 88 Troponin I Total Protein 7.5 Albumin 3.1 L 07/13/18 07/13/18 07/13/18 01:53 01:53 08:49 WBC 6.9 RBC 3.88 L Hgb 9.4 L Hct 30.8 L MCV 79.2 L MCH 24.1 L MCHC 30.4 L RDW 18.9 H Plt Count 285 MPV 6.9 L Neut % (Auto) 59.5 Lymph % (Auto) 29.5 [place] % (Auto) 6.0 Eos % (Auto) 4.2 H Baso % (Auto) 0.8 Neut # (Auto) 4.1 Lymph # (Auto) 2.0 [place] # (Auto) 0.4 Eos # (Auto) 0.3 Baso # (Auto) 0.1 WBC Differential . Differential Comment Auto diff final PT INR APTT 29.2 Sodium Potassium Chloride Carbon Dioxide Anion Gap BUN Creatinine Estimated GFR Random Glucose Calcium Total Bilirubin AST ALT Alkaline Phosphatase Troponin I Less than 0.02 L Total Protein Albumin 07/13/18 07/13/18 07/13/18 08:49 08:49 08:49 WBC RBC Hgb Hct MCV MCH MCHC RDW Plt Count MPV Neut % (Auto) Lymph % (Auto) [place] % (Auto) Eos % (Auto) Baso % (Auto) Neut # (Auto) Lymph # (Auto) [place] # (Auto) Eos # (Auto) Baso # (Auto) WBC Differential Differential Comment PT INR APTT 31.1 Sodium 140 Potassium 3.7 Chloride 110 H Carbon Dioxide 24.3 Anion Gap 6 BUN 9 Creatinine 0.70 Estimated GFR Greater than 89 Random Glucose 107 H Calcium 8.8 Total Bilirubin 0.2 AST 26 ALT 22 Alkaline Phosphatase 90 Troponin I Less than 0.02 L Total Protein 7.0 Albumin 2.9 L Assessment and Plan - Assessment (1) PE (pulmonary thromboembolism) Code(s): I26.99 - Other pulmonary embolism without acute cor pulmonale Status : Acute (2) Colon cancer Code(s): C18.9 - Malignant neoplasm of colon, unspecified Status: Acute (3) Seizure disorder Code(s): G40.909 - Epilepsy, unspecified, not intractable, without status epilepticus Status: Chronic - Plan 78 yers old male Acute PE likely with right DVT - noted on PET scan as OP - started on Lovenox bid - CTA, venous doppler US requested to confirm - Hematology/Oncology ff Colon CA: recently diagnosed, s/p Hemicolectomy by Dr. Sylvester 06/03/18 s/p port placement -Dr. Davis ff- plan was to initiate chemo on Sunday. Oncology ff Seizure Disorder: Chronic. -neuro stable Will restart home medications History of HTN -cotninue BB DVT Prophylaxis: On Lovenox Social work for d/c planning as needed Case discussed w/ patient and family at bedside (2) Colon cancer Qualifiers: Colon location: ascending Qualified Code(s): C18.2 - Malignant neoplasm of ascending colon
[2018-07-13] MEDS: Enoxaparin Inj 80 MG/0.8 ML Syringe SQ SCH ×2 (12:54→21:44)
--- NOTE | 2018-07-13 14:31 | MB ---
cc: Severiano Ahmadi MD DATE: 07/13/2018 ATTENDING PHYSICIAN: Dr. Swan. REASON FOR CONSULTATION: Hematology consulted, rendered opinion. Again, patient with bilateral pulmonary embolism and history of colon cancer. HISTORY OF PRESENT ILLNESS: The patient is a 78-year-old male recently diagnosed with a stage III colon cancer, status post hemicolectomy on 06/03/2018. He also had a port placement. He stated about a week after the surgery he experienced right leg "Charley horse." He said that it was tender and he was not able to walk for about 4-5 days. He self-applied the TENS unit to his right lower extremity and his pain eventually resolved. He said it was a little swollen at that time. Yesterday, he went to [place] [facility] for a CT scan. He was called to come into the hospital because they found a bilateral pulmonary embolism. At this time, we do not have the CT report. The patient stated he lost 16 pounds when he was diagnosed with colon cancer and because of the surgery. The patient is feeling better. He has no chest pain. No palpitation. He denies shortness of breath. He has chronic cough with occasional spitting up some clear sputum. He denies any nausea or vomiting. He has no diarrhea. He has no abdominal pain. He has no change in urinary habits. PAST MEDICAL HISTORY: Recent diagnosis of colon cancer, stage III, hypertension, hyperlipidemia, seizure disorder, anxiety. PAST SURGICAL HISTORY: Recent hemicolectomy, port placement, facial surgery and ankle surgery. FAMILY HISTORY: Diabetes mellitus. No cancer in the family. No thrombosis in the family. SOCIAL HISTORY: Denies tobacco or alcohol use. ALLERGIES: GABAPENTIN. CURRENT MEDICATIONS: 1. Heparin. 2. Aspirin. 3. Atenolol. 4. Symbicort. 5. Valium. 6. Flonase. 7. Protonix. 8. Dilantin. 9. Colace. 10. Zonegran. REVIEW OF SYSTEMS: CONSTITUTIONAL: As above. EYES: Negative. ENT: Negative. CARDIOVASCULAR: As above. RESPIRATORY: As above. GASTROINTESTINAL: As above. GENITOURINARY: Negative. MUSCULOSKELETAL: As above. HEMATOLOGIC: As above. ENDOCRINE: Negative. DERMATOLOGIC: Negative. PSYCHIATRIC: Negative. NEUROLOGIC: Negative. PHYSICAL EXAMINATION: VITAL SIGNS: Temperature 97.5, blood pressure 125/65, O2 saturation 98% on room air. GENERAL: He is alert, oriented x3, no acute distress. HEENT: Atraumatic, normocephalic. Pupils are equal, round, reactive to light. Sclerae are intact. No scleral icterus. Oropharynx dry mucosa. No lesion. No thrush or mucositis. NECK: No thyromegaly. No palpable mass. LYMPHATIC: No palpable cervical, clavicular, axillary, or inguinal lymphadenopathy. CARDIOVASCULAR: Regular S1, S2. No murmur. LUNGS: Clear to auscultation bilaterally. ABDOMEN: Soft, nontender. Cannot palpate liver or spleen. EXTREMITIES: The right lower extremity is slightly bigger than the left and he has mild right calf tenderness. Trace ankle edema. SKIN: No rash or petechiae. NEUROLOGIC: Nonfocal. LABORATORY DATA: I have reviewed his blood work done during this hospital stay. WBC 6.9, hemoglobin 9.4, platelet count 285. INR 1.1, PTT 31, creatinine 0.7. Liver transaminases within normal limits. ASSESSMENT: 1. Bilateral pulmonary embolism noted incidentally on CT scan. He went for CT scan at [facility] yesterday and was told he had bilateral pulmonary embolism. We do not have the CT report at this time. The patient stated about a week after his surgery, he developed a Charley horse in his right lower extremity. He could not walk for 4-5 days. He self-treated with a TENS unit and his pain eventually resolved. On exam, his right lower extremity looks a little bigger than the left and he has a mild calf tenderness. I suspect he has right lower extremity deep venous thrombosis that resulted in a pulmonary embolism. The blood clot is likely triggered by underlying colon cancer and recent abdominal surgery. He has no pulmonary symptoms or cardiac symptoms. He was started on heparin. His PTT is still subtherapeutic. I am going to switch him to Lovenox and will get a bilateral lower extremity ultrasound. He can be eventually transitioned to Eliquis or kept on Lovenox and I will let Dr. Davis decide on the choice of anticoagulation. 2. Colon cancer, stage III. He had hemicolectomy. Tumor measured 6.5 cm with 6 positive lymph nodes. Pathologic stage T3 N2a. He was supposed to start adjuvant chemotherapy next week. 3. Hypertension. 4. Seizure disorder. 5. Anxiety. 6. Hyperlipidemia. RECOMMENDATIONS: 1. Get ultrasound of bilateral lower extremities. 2. Await CT report from [place] [facility]. 3. I am going to switch him from heparin to Lovenox. 4. Monitor for signs of bleeding. Thank you for the opportunity to see this patient. MD IVIS Crystal/savannah/rabia , 11:26 AM , 11:40 AM HERBERTH
--- NOTE | 2018-07-13 17:27 | US ---
EXAM DATE: 07/13/2018 5:23 PM EST AGE/SEX: 78 years / Male INDICATIONS: Bilateral leg swelling. CLINICAL DATA: This is the patient's subsequent encounter. Patient reports that signs and symptoms h ave been present for 1 day and indicates a pain score of 3/10. MEDICAL/SURGICAL HISTORY: Carcinoma, colon. Hypertension. Anxiety. Epilepsy. . Vascular acces s device. Ankle surgery. Colon surgery. Facial surgery. COMPARISON: [facility], US LEG LEFT VENOUS DOPPLER, 10/31/2016. . TECHNIQUE: Venous ultrasound of both lower extremities was performed from the inguinal ligament to t he proximal calf. Real-time, color Doppler and spectral tracing, compression and augmentation techni ques were used. FINDINGS: Right Leg: Occlusive thrombus is noted involving the right superficial femoral, popliteal and leather carver ior tibial veins. Left Leg: Occlusive thrombus is noted involving the left popliteal and posterior tibial veins. Other: None. CONCLUSION: 1. Occlusive deep venous thrombus involving the right superficial femoral, popliteal and posterior t ibial veins as well as the left popliteal and posterior tibial veins. Electronically signed by: Eitan Wagner MD 07/13/2018 5:25 PM EST
--- NOTE | 2018-07-13 18:31 | ECHRPT ---
Indication: SOB CONCLUSIONS The left ventricular systolic function is normal with an estimated ejection fraction in the range of 60-65%. Trace mitral valve regurgitation. Trace aortic valve regurgitation. There is trace tricuspid valve regurgitation. BP: / HR: Rhythm: MEASUREMENTS (Male / Female) Normal Values Technical Quality:Fair 2D ECHO LV Diastolic Diameter PLAX 5.0 cm 4.2 - 5.9 / 3.9 - 5.3 cm LV Systolic Diameter PLAX 3.5 cm IVS Diastolic Thickness 0.8 cm 0.6 - 1.0 / 0.6 - 0.9 cm LVPW Diastolic Thickness 0.9 cm 0.6 - 1.0 / 0.6 - 0.9 cm LV Relative Wall Thickness 0.3 LVOT Diameter 1.8 cm LA Systolic Diameter LX 3.8 cm 3.0 - 4.0 / 2.7 - 3.8 cm LV Ejection Fraction MOD 4C 63.0 % LV Ejection Fraction 4C AL 64.0 % M-MODE Aortic Root Diameter MM 2.5 cm LA Systolic Diameter MM 3.7 cm LA Ao Ratio MM 1.5 AV Cusp Separation MM 2.0 cm DOPPLER AV Peak Velocity 187.0 cm/s AV Peak Gradient 14.0 mmHg AI Peak Velocity 308.0 cm/s AI Peak Gradient 37.9 mmHg AI Pressure Half Time 1482.5 ms LVOT Peak Velocity 124.0 cm/s LVOT Peak Gradient 6.2 mmHg AV Area Cont Eq pk 1.7 cm MV Area PHT 3.5 cm Mitral E Point Velocity 102.0 cm/s Mitral A Point Velocity 64.2 cm/s Mitral E to A Ratio 1.6 LV E' Lateral Velocity 9.2 cm/s Mitral E to LV E' Lateral Ratio 11.1 LV E' Septal Velocity 7.6 cm/s Mitral E to LV E' Septal Ratio 13.4 TR Peak Velocity 337.0 cm/s TR Peak Gradient 45.4 mmHg Right Atrial Pressure 10.0 mmHg Pulmonary Artery Systolic Pressu 55.4 mmHg Right Ventricular Systolic Press 55.4 mmHg PV Peak Velocity 118.0 cm/s PV Peak Gradient 5.6 mmHg FINDINGS LEFT VENTRICLE The left ventricular systolic function is normal with an estimated ejection fraction in the range of 60-65%. Normal left ventricular size. Wall thickness is normal. No regional wall motion abnormalities are present. This study was not technically sufficient to allow for evaluation of left ventricular diastolic func tion. RIGHT VENTRICLE Normal right ventricular size and systolic function. LEFT ATRIUM The left atrial size is upper limits of normal. RIGHT ATRIUM The right atrial size is normal. ATRIAL SEPTUM Normal atrial septal thickness AORTA The aortic root and proximal ascending aorta are normal in size on limited imaging. MITRAL VALVE Structurally normal mitral valve. Trace mitral valve regurgitation. No mitral valve stenosis. AORTIC VALVE Trileaflet aortic valve. Trace aortic valve regurgitation. No aortic valve stenosis. TRICUSPID VALVE Structurally normal tricuspid valve. There is trace tricuspid valve regurgitation. The estimated pulmonary arterial pressure is 55.4 mmHg. VESSELS The inferior vena cava is normal in size. PERICARDIUM No pericardial effusion. Garland Abrams DO (Electronically Signed) Final Date:13 July 2018 18:30
[2018-07-13] MEDS: CLORAZEPATE 3.75 MG PO SCH (21:45)
[2018-07-14 06:12] LABS: Hematocrit 28.3 % (39.0-51.0); Hemoglobin 8.9 gm/dL (13.0-17.0); Mean Corpuscular HGB Conc 31.5 % (32.0-36.0); Mean Corpuscular Hemoglobin 24.8 pg (27.0-34.0); Mean Corpuscular Volume 78.7 fL (80.0-100.0); Mean Platelet Volume 7.1 fL (7.0-11.0); Platelet Count 289 th/mm3 (150-450)
[2018-07-14] MEDS: CLORAZEPATE 3.75 MG PO SCH ×2 (09:19→21:18)
[2018-07-14] MEDS: Enoxaparin Inj 80 MG/0.8 ML Syringe SQ SCH ×2 (09:19→21:19)
[2018-07-14] MEDS: Senna/Docusate Sodium 8.6/50 MG Tablet PO SCH ×2 (09:21→21:31)
[2018-07-14] MEDS: Phenytoin Sodium 100 MG Capsule PO SCH ×3 (09:30→17:12)
[2018-07-14] MEDS: Atenolol 50 MG Tablet PO SCH (09:30)
[2018-07-14] MEDS: Budesonide-Formoterol 160/4.5 MCG 6 GM Inhaler INH SCH ×2 (09:30→21:32)
--- NOTE | 2018-07-14 10:03 | P.PNONC ---
Subjective Interval history: Afebrile Pt denies any bleeding Breathing better Reports his pain is better; able to walk this morning. Objective Vital Signs/Intake & Output: Vital Signs 07/13/18 10:00 07/13/18 10:10 07/13/18 11:00 Temperature Pulse Rate 76 48 L Respiratory Rate Blood Pressure Pulse Oximetry 99 07/13/18 11:06 07/13/18 12:00 07/13/18 13:00 Temperature 97.5 F L Pulse Rate 86 51 L 51 L Respiratory Rate 20 Blood Pressure 125/65 Pulse Oximetry 98 07/13/18 14:00 07/13/18 14:35 07/13/18 15:00 Temperature 96.9 F L Pulse Rate 52 L 52 L 55 L Respiratory Rate 17 Blood Pressure 125/62 Pulse Oximetry 98 07/13/18 16:00 07/13/18 17:00 07/13/18 18:00 Temperature Pulse Rate 53 L 53 L 51 L Respiratory Rate Blood Pressure Pulse Oximetry 07/13/18 19:00 07/13/18 20:00 07/13/18 21:00 Temperature 97.2 F L Pulse Rate 53 L 52 L 50 L Respiratory Rate 16 Blood Pressure 129/70 Pulse Oximetry 97 07/13/18 22:00 07/13/18 23:00 07/13/18 23:33 Temperature Pulse Rate 54 L 50 L 55 L Respiratory Rate 16 Blood Pressure 136/69 Pulse Oximetry 98 07/14/18 00:00 07/14/18 01:00 07/14/18 02:00 Temperature Pulse Rate 52 L 52 L 52 L Respiratory Rate Blood Pressure Pulse Oximetry 07/14/18 03:00 07/14/18 04:00 07/14/18 04:56 Temperature Pulse Rate 54 L 58 L 52 L Respiratory Rate 18 Blood Pressure 145/71 H Pulse Oximetry 99 07/14/18 05:00 07/14/18 06:00 07/14/18 07:00 Temperature Pulse Rate 50 L 48 L 52 L Respiratory Rate Blood Pressure Pulse Oximetry 07/14/18 08:00 07/14/18 09:27 Temperature Pulse Rate 50 L 56 L Respiratory Rate 16 Blood Pressure Pulse Oximetry 99 Intake & Output 07/13/18 07/14/18 07/14/18 18:59 06:59 18:59 Intake Total 1180 / 1180 240 / 240 Output Total 500 / 500 200 / 200 Balance 680 / 680 40 / 40 Weight 154 lb 5.177 oz Intake: IV 220 / 220 Heparin/D5W 25,000 U/250 mL 25, 220 / 220 000 unit In 250 ml @ Per Protocol IV.CONT TITRATE PRN Rx #:[id number] Oral 960 / 960 240 / 240 Output: Urine 500 / 500 200 / 200 Other: # Voids 1 Date of Last Bowel Movement 07/14/18 # Bowel Movements 0 1 Result Diagrams: 07/14/18 05:44 07/13/18 08:49 Laboratory Results: Laboratory Results - last 24 hr 07/13/18 07/14/18 17:17 05:44 WBC 7.0 RBC 3.60 L Hgb 8.9 L Hct 28.3 L MCV 78.7 L MCH 24.8 L MCHC 31.5 L RDW 19.0 H Plt Count 289 MPV 7.1 APTT 44.4 H D Imaging Studies: Impressions Venous Doppler Study 07/13/18 00:00 CONCLUSION: 1. Occlusive deep venous thrombus involving the right superficial femoral, popliteal and posterior tibial veins as well as the left popliteal and posterior tibial veins. Medications: Active Medications Generic Name Dose Route Start Last Admin Trade Name Freq PRN Reason Stop Dose Admin Hydrocodone Bitart/Acetaminophen 1 tab 07/12/18 19:13 07/13/18 15:45 [place] 5/325 PO 1 tab Q4H PRN Administration PAIN 6-10 Albuterol 1 ampul 07/12/18 19:12 07/14/18 09:27 Duoneb Neb (Prn) NEB 1 ampul Q4HR NEB PRN Administration SOB/WHEEZING Aspirin 81 mg 07/13/18 09:00 07/14/18 09:30 Aspirin Chew PO 81 mg DAILY MATHEW Administration Atenolol 50 mg 07/13/18 09:00 07/14/18 09:30 Tenormin PO 50 mg DAILY MATHEW Administration Budesonide/Formoterol Fumarate 2 puff 07/12/18 21:00 07/14/18 09:30 Symbicort 160/4.5 Mcg Inh INH 2 puff BID MATHEW Administration Enoxaparin Sodium 70 mg 07/13/18 11:30 07/14/18 09:19 Lovenox Inj SQ 70 mg Q12HR MATHEW Administration Fluticasone Propionate 1 spray 07/13/18 09:00 07/14/18 09:19 Flonase Nasal [place] EACH NARE 1 spray TID MATHEW Administration Multivitamins 1 tab 07/12/18 20:00 07/14/18 09:18 Theragran PO 1 tab DAILY MATHEW Administration Pantoprazole Sodium 40 mg 07/12/18 21:00 07/14/18 09:18 Protonix PO 40 mg BID MATHEW Administration Patient Own Narcotic 0 each 07/13/18 21:00 07/13/18 21:45 Med 1:Clorazepate 3 PO 1 each .75 Mg HS MATHEW Administration Patient Own Narcotic 0 each 07/14/18 09:00 07/14/18 09:19 Med 2:Clorazepate 3 PO 2 each .75 Mg DAILY MATHEW Administration Phenytoin Sodium 100 mg 07/13/18 09:00 07/14/18 09:30 Dilantin PO 100 mg TID MATHEW Administration Senna/Docusate Sodium 1 tab 07/12/18 21:00 07/14/18 09:21 [place]ira-Colace PO Not Given BID MATHEW Sodium Chloride 2 ml 07/12/18 21:00 07/14/18 09:20 Ns Flush IV.FLUSH 2 ml BID MATHEW Administration Zonisamide 100 mg 07/12/18 21:00 07/14/18 09:18 Zonegran PO 100 mg BID MATHEW Administration Objective Remarks: GENERAL: Older male sitting in exam chair in no distress. SKIN: Warm and dry. HEAD: Normocephalic. EYES: No scleral icterus. No injection or drainage. NECK: Supple, trachea midline. No JVD or lymphadenopathy. CARDIOVASCULAR: Regular rate and rhythm without murmurs. RESPIRATORY: Breath sounds equal bilaterally. No accessory muscle use. GASTROINTESTINAL: Abdomen soft, non-tender, nondistended. EXTREMITIES: RLE with mild edema MUSCULOSKELETAL: Adequate muscle tone. NEUROLOGICAL: No obvious focal deficit. Awake, alert, and oriented x3. Assessment/Plan - Plan 78-year-old male with history of colon cancer admitted with new diagnosis of pulmonary embolism. He is due to start chemotherapy in the clinic tomorrow. Lovenox injections were started 1. Continue Lovenox. Reviewed with patient that his venous ultrasound of bilateral lower extremity showed occlusive thrombus in both legs. His pain is much improved today. He is able to walk around his room. 2. We discussed that his chemotherapy will likely be placed on hold tomorrow until he recovers from the new pulmonary embolism. He is anxious to get started. 3. Monitor CBC. Monitor for bleeding. 4. Continue supportive care. - Attending Statement The exam, history, and the medical decision-making described in the above note were completed with the assistance of the mid-level provider. I reviewed and agree with the findings presented. I attest that I had a [id number] encounter with the patient on the same day, and personally performed and documented my assessment and findings in the medical record. Patient is feeling better. His lower extremity edema and tenderness have improved. Ultrasound showed bilateral lower extremity deep venous thrombosis. He is tolerating Lovenox well. No evidence of bleeding. Dr. Davis to follow in the morning.
--- NOTE | 2018-07-14 12:11 | P.PN ---
Subjective Interval history: awake adn alert, feeling much better no complains of chest pains or shortness of breath good po Physical Exam Vital signs: Vital Signs 07/13/18 13:00 07/13/18 14:00 07/13/18 14:35 Temperature 96.9 F L Pulse Rate 51 L 52 L 52 L Respiratory Rate 17 Blood Pressure 125/62 Pulse Oximetry 98 07/13/18 15:00 07/13/18 16:00 07/13/18 17:00 Temperature Pulse Rate 55 L 53 L 53 L Respiratory Rate Blood Pressure Pulse Oximetry 07/13/18 18:00 07/13/18 19:00 07/13/18 20:00 Temperature 97.2 F L Pulse Rate 51 L 53 L 52 L Respiratory Rate 16 Blood Pressure 129/70 Pulse Oximetry 97 07/13/18 21:00 07/13/18 22:00 07/13/18 23:00 Temperature Pulse Rate 50 L 54 L 50 L Respiratory Rate Blood Pressure Pulse Oximetry 07/13/18 23:33 07/14/18 00:00 07/14/18 01:00 Temperature Pulse Rate 55 L 52 L 52 L Respiratory Rate 16 Blood Pressure 136/69 Pulse Oximetry 98 07/14/18 02:00 07/14/18 03:00 07/14/18 04:00 Temperature Pulse Rate 52 L 54 L 58 L Respiratory Rate Blood Pressure Pulse Oximetry 07/14/18 04:56 07/14/18 05:00 07/14/18 06:00 Temperature Pulse Rate 52 L 50 L 48 L Respiratory Rate 18 Blood Pressure 145/71 H Pulse Oximetry 99 07/14/18 07:00 07/14/18 08:00 07/14/18 09:00 Temperature 97.9 F Pulse Rate 52 L 55 L 58 L Respiratory Rate 16 Blood Pressure 128/62 Pulse Oximetry 99 07/14/18 09:27 07/14/18 10:00 07/14/18 10:48 Temperature Pulse Rate 56 L 55 L 52 L Respiratory Rate 16 Blood Pressure Pulse Oximetry 99 Intake & Output 07/13/18 07/14/18 07/14/18 18:59 06:59 18:59 Intake Total 1180 / 1180 240 / 240 Output Total 500 / 500 200 / 200 Balance 680 / 680 40 / 40 Weight 70 kg Intake: IV 220 / 220 Heparin/D5W 25,000 U/250 mL 25, 220 / 220 000 unit In 250 ml @ Per Protocol IV.CONT TITRATE PRN Rx #:[id number] Oral 960 / 960 240 / 240 Output: Urine 500 / 500 200 / 200 Other: # Voids 1 Date of Last Bowel Movement 07/14/18 07/14/18 # Bowel Movements 0 1 Narrative: PE:awake and alert, oriented x 3 GENERAL: Extremely pleasant elderly white male in no acute distress. HEENT: PERRLA, EOMI. No scleral icterus CARDIOVASCULAR: Regular rate and rhythm. No chest tenderness to palpation. RESPIRATORY: clear to auscultation. Breath sounds equal bilaterally. GASTROINTESTINAL: Abdomen soft, non-tender, nondistended. BS normal. MUSCULOSKELETAL: right LE- bigger compared to left- - improved c/w yesterday's exam -, no calf tenderness NEUROLOGICAL: Awake, alert and oriented x4. No focal neurologic deficits. Moving both upper and lower extremities spontaneously. PSYCHIATRIC: Appropriate mood and affect. Insight and judgment normal. Results - Labs CBC & Chem 7: 07/14/18 05:44 07/13/18 08:49 Laboratory Results - last 24 hr 07/13/18 07/14/18 17:17 05:44 WBC 7.0 RBC 3.60 L Hgb 8.9 L Hct 28.3 L MCV 78.7 L MCH 24.8 L MCHC 31.5 L RDW 19.0 H Plt Count 289 MPV 7.1 APTT 44.4 H D - Imaging Impressions Venous Doppler Study 07/13/18 00:00 CONCLUSION: 1. Occlusive deep venous thrombus involving the right superficial femoral, popliteal and posterior tibial veins as well as the left popliteal and posterior tibial veins. Assessment and Plan - Assessment (1) PE (pulmonary thromboembolism) Code(s): I26.99 - Other pulmonary embolism without acute cor pulmonale Status : Acute (2) Colon cancer Code(s): C18.9 - Malignant neoplasm of colon, unspecified Status: Acute (3) Seizure disorder Code(s): G40.909 - Epilepsy, unspecified, not intractable, without status epilepticus Status: Chronic - Plan 78 yers old male Acute PE likely with right DVT - noted on PET scan as OP - started on Lovenox bid - CTA, venous doppler US requested to confirm - Hematology/Oncology ff Colon CA: recently diagnosed, s/p Hemicolectomy by Dr. Sylvester 06/03/18 s/p port placement -Dr. Davis ff- plan was to initiate chemo on Sunday. Oncology ff Seizure Disorder: Chronic. -neuro stable Will restart home medications History of HTN -cotninue BB DVT Prophylaxis: On Lovenox Social work for d/c planning as needed Case discussed w/ patient and family at bedside (2) Colon cancer Qualifiers: Colon location: ascending Qualified Code(s): C18.2 - Malignant neoplasm of ascending colon
[2018-07-15 07:21] LABS: Hematocrit 28.3 % (39.0-51.0); Mean Corpuscular HGB Conc 31.9 % (32.0-36.0); Mean Corpuscular Volume 78.4 fL (80.0-100.0); Mean Platelet Volume 7.4 fL (7.0-11.0); Platelet Count 297 th/mm3 (150-450); Red Blood Count 3.61 mil/mm3 (4.50-5.90); Red Cell Distribution Width 18.5 % (11.6-17.2); White Blood Count 7.3 th/mm3 (4.0-11.0)
[2018-07-15] MEDS: CLORAZEPATE 3.75 MG PO SCH ×3 (07:45→20:55)
[2018-07-15] MEDS: Phenytoin Sodium 100 MG Capsule PO SCH ×3 (08:52→17:36)
[2018-07-15] MEDS: Atenolol 50 MG Tablet PO SCH (08:53)
[2018-07-15] MEDS: Senna/Docusate Sodium 8.6/50 MG Tablet PO SCH ×2 (08:53→20:57)
[2018-07-15] MEDS: Budesonide-Formoterol 160/4.5 MCG 6 GM Inhaler INH SCH ×2 (08:54→20:56)
[2018-07-15] MEDS: Enoxaparin Inj 80 MG/0.8 ML Syringe SQ SCH ×2 (08:55→20:56)
--- NOTE | 2018-07-15 11:08 | P.PN ---
Subjective Interval history: no complains no chest pain or shortness of breath up and walking around his room Physical Exam Vital signs: Vital Signs 07/14/18 12:00 07/14/18 13:00 07/14/18 14:00 Temperature 98.1 F Pulse Rate 54 L 59 L 58 L Respiratory Rate 18 Blood Pressure 140/79 Pulse Oximetry 98 07/14/18 14:09 07/14/18 16:00 07/14/18 16:04 Temperature 98.0 F Pulse Rate 56 L 55 L 63 Respiratory Rate 19 16 Blood Pressure 129/64 Pulse Oximetry 97 07/14/18 17:00 07/14/18 17:46 07/14/18 19:00 Temperature Pulse Rate 81 76 62 Respiratory Rate Blood Pressure Pulse Oximetry 07/14/18 20:00 07/14/18 21:00 07/14/18 22:00 Temperature 97 F L Pulse Rate 58 L 58 L 58 L Respiratory Rate 18 Blood Pressure 131/68 Pulse Oximetry 97 07/14/18 23:00 07/14/18 23:51 07/15/18 00:00 Temperature Pulse Rate 53 L 57 L 50 L Respiratory Rate 16 Blood Pressure 118/60 Pulse Oximetry 98 07/15/18 01:00 07/15/18 02:00 07/15/18 03:00 Temperature Pulse Rate 48 L 52 L 48 L Respiratory Rate Blood Pressure Pulse Oximetry 07/15/18 04:00 07/15/18 05:00 07/15/18 05:21 Temperature Pulse Rate 50 L 62 78 Respiratory Rate 18 Blood Pressure 134/69 Pulse Oximetry 98 07/15/18 06:00 07/15/18 07:00 07/15/18 08:00 Temperature 97.8 F Pulse Rate 56 L 53 L 53 L Respiratory Rate 18 Blood Pressure 141/69 H Pulse Oximetry 98 07/15/18 09:00 07/15/18 10:00 07/15/18 10:23 Temperature Pulse Rate 60 55 L Respiratory Rate Blood Pressure Pulse Oximetry 98 Intake & Output 07/14/18 07/15/18 07/15/18 18:59 06:59 18:59 Intake Total 1140 / 1140 240 / 240 Output Total 950 / 950 Balance 190 / 190 240 / 240 Weight 70.2 kg Intake: Oral 1140 / 1140 240 / 240 Output: Urine 950 / 950 Other: # Voids 1 Date of Last Bowel Movement 12/02/18 12/02/18 12/02/18 # Bowel Movements 0 Narrative: awake and alert, oriented x 3 , no distress HEENT: PERRLA, EOMI. No scleral icterus CARDIOVASCULAR: Regular rate and rhythm. No chest tenderness to palpation. RESPIRATORY: clear to auscultation. Breath sounds equal bilaterally. GASTROINTESTINAL: Abdomen soft, non-tender, nondistended. BS normal. MUSCULOSKELETAL: right LE- bigger compared to left- -but size much improved c/ w yesterday's exam -, no calf tenderness, no erythema good epripheral pulses, no calf tenderness both NEUROLOGICAL: Awake, alert and oriented x4. No focal neurologic deficits. Moving both upper and lower extremities spontaneously. PSYCHIATRIC: Appropriate mood and affect. Insight and judgment normal. Results - Labs CBC & Chem 7: 07/15/18 06:16 07/13/18 08:49 Laboratory Results - last 24 hr 07/15/18 06:16 WBC 7.3 RBC 3.61 L Hgb 9.0 L Hct 28.3 L MCV 78.4 L MCH 25.0 L MCHC 31.9 L RDW 18.5 H Plt Count 297 MPV 7.4 Assessment and Plan - Assessment (1) PE (pulmonary thromboembolism) Code(s): I26.99 - Other pulmonary embolism without acute cor pulmonale Status : Acute (2) Colon cancer Code(s): C18.9 - Malignant neoplasm of colon, unspecified Status: Acute (3) Seizure disorder Code(s): G40.909 - Epilepsy, unspecified, not intractable, without status epilepticus Status: Chronic - Plan 78 yers old male Acute PE - with bilateral DVT - exam right calf bigger - PE noted on PET scan as OP - started on Lovenox bid - Hematology/Oncology ff Colon CA: recently diagnosed, s/p Hemicolectomy by Dr. Sylvester 06/03/18 s/p port placement -Dr. Davis ff- plan was to initiate chemo Oncology ff - will d/w them - with this new event Seizure Disorder: Chronic. -neuro stable Will restart home medications History of HTN -cotninue BB DVT Prophylaxis: On Lovenox Social work for d/c planning as needed Up and ambualte (2) Colon cancer Qualifiers: Colon location: ascending Qualified Code(s): C18.2 - Malignant neoplasm of ascending colon
--- NOTE | 2018-07-15 20:02 | P.PNONC ---
Subjective Interval history: Resting comfortably in bed. Reports improvement in bilateral lower extremiy swelling. Objective Vital Signs/Intake & Output: Vital Signs 07/14/18 21:00 07/14/18 22:00 07/14/18 23:00 Temperature Pulse Rate 58 L 58 L 53 L Respiratory Rate Blood Pressure Pulse Oximetry 07/14/18 23:51 07/15/18 00:00 07/15/18 01:00 Temperature Pulse Rate 57 L 50 L 48 L Respiratory Rate 16 Blood Pressure 118/60 Pulse Oximetry 98 07/15/18 02:00 07/15/18 03:00 07/15/18 04:00 Temperature Pulse Rate 52 L 48 L 50 L Respiratory Rate Blood Pressure Pulse Oximetry 07/15/18 05:00 07/15/18 05:21 07/15/18 06:00 Temperature Pulse Rate 62 78 56 L Respiratory Rate 18 Blood Pressure 134/69 Pulse Oximetry 98 07/15/18 07:00 07/15/18 08:00 07/15/18 09:00 Temperature 97.8 F Pulse Rate 53 L 53 L 60 Respiratory Rate 18 Blood Pressure 141/69 H Pulse Oximetry 98 07/15/18 10:00 07/15/18 10:23 07/15/18 11:00 Temperature Pulse Rate 55 L 54 L Respiratory Rate Blood Pressure Pulse Oximetry 98 07/15/18 12:00 07/15/18 13:00 07/15/18 14:00 Temperature 97.5 F L Pulse Rate 56 L 55 L 57 L Respiratory Rate 18 Blood Pressure 113/66 Pulse Oximetry 92 L 07/15/18 15:00 07/15/18 16:00 07/15/18 17:00 Temperature 97.9 F Pulse Rate 56 L 60 62 Respiratory Rate 20 Blood Pressure 119/63 Pulse Oximetry 94 L 07/15/18 18:00 Temperature Pulse Rate 57 L Respiratory Rate Blood Pressure Pulse Oximetry Intake & Output 07/15/18 07/15/18 07/16/18 06:59 18:59 06:59 Intake Total 240 / 240 480 / 480 Output Total 650 / 650 Balance 240 / 240 -170 / -170 Weight 70.2 kg Intake: Oral 240 / 240 480 / 480 Output: Urine 650 / 650 Other: # Voids 1 1 Date of Last Bowel Movement 07/14/18 07/14/18 # Bowel Movements 0 Result Diagrams: 07/15/18 06:16 07/13/18 08:49 Laboratory Results: Laboratory Results - last 24 hr 07/15/18 06:16 WBC 7.3 RBC 3.61 L Hgb 9.0 L Hct 28.3 L MCV 78.4 L MCH 25.0 L MCHC 31.9 L RDW 18.5 H Plt Count 297 MPV 7.4 Medications: Active Medications Generic Name Dose Route Start Last Admin Trade Name Freq PRN Reason Stop Dose Admin Hydrocodone Bitart/Acetaminophen 1 tab 07/12/18 19:13 07/13/18 15:45 [place] 5/325 PO 1 tab Q4H PRN Administration PAIN 6-10 Albuterol 1 ampul 07/12/18 19:12 07/14/18 16:03 Duoneb Neb (Prn) NEB 1 ampul Q4HR NEB PRN Administration SOB/WHEEZING Aspirin 81 mg 07/13/18 09:00 07/15/18 08:53 Aspirin Chew PO 81 mg DAILY MATHEW Administration Atenolol 50 mg 07/13/18 09:00 07/15/18 08:53 Tenormin PO 50 mg DAILY MATHEW Administration Budesonide/Formoterol Fumarate 2 puff 07/12/18 21:00 07/15/18 08:54 Symbicort 160/4.5 Mcg Inh INH 2 puff BID MATHEW Administration Enoxaparin Sodium 70 mg 07/13/18 11:30 07/15/18 08:55 Lovenox Inj SQ 70 mg Q12HR MATHEW Administration Fluticasone Propionate 1 spray 07/13/18 09:00 07/15/18 17:36 Flonase Nasal [place] EACH NARE 1 spray TID MATHEW Administration Multivitamins 1 tab 07/12/18 20:00 07/15/18 08:53 Theragran PO 1 tab DAILY MATHEW Administration Pantoprazole Sodium 40 mg 07/12/18 21:00 07/15/18 08:52 Protonix PO 40 mg BID MATHEW Administration Patient Own Narcotic 0 each 07/13/18 21:00 07/14/18 21:18 Med 1:Clorazepate 3 PO 1 each .75 Mg HS MATHEW Administration Patient Own Narcotic 0 each 07/14/18 09:00 07/15/18 08:55 Med 2:Clorazepate 3 PO Not Given .75 Mg DAILY MATHEW Phenytoin Sodium 100 mg 07/13/18 09:00 07/15/18 17:36 Dilantin PO 100 mg TID MATHEW Administration Senna/Docusate Sodium 1 tab 07/12/18 21:00 07/15/18 08:53 [place]-Colace PO 1 tab BID MATHEW Administration Sodium Chloride 2 ml 07/12/18 21:00 07/15/18 08:55 Ns Flush IV.FLUSH 2 ml BID MATHEW Administration Zonisamide 100 mg 07/12/18 21:00 07/15/18 08:53 Zonegran PO 100 mg BID MATHEW Administration Objective Remarks: GENERAL: Well-nourished, well-developed patient. SKIN: Warm and dry. HEAD: Normocephalic. EYES: No scleral icterus. No injection or drainage. NECK: Supple, trachea midline. No JVD or lymphadenopathy. LYMPHATIC: No adenopathy. CARDIOVASCULAR: Regular rate and rhythm without murmurs. RESPIRATORY: Breath sounds equal bilaterally. No accessory muscle use. GASTROINTESTINAL: Abdomen soft, non-tender, nondistended. EXTREMITIES: No cyanosis, or edema. MUSCULOSKELETAL: Adequate muscle tone. NEUROLOGICAL: No obvious focal deficit. Awake, alert, and oriented x3. PSYCHIATRIC: Appropriate mood and affect; insight and judgment normal. Assessment/Plan - Plan Stage III colon cancer: will initiate adjuvant therapy in the outpatient setting. VTE: continue with lovenox in the outpatient setting.
[2018-07-16] MEDS: Atenolol 50 MG Tablet PO SCH (08:59)
[2018-07-16] MEDS: Senna/Docusate Sodium 8.6/50 MG Tablet PO SCH (08:59)
[2018-07-16] MEDS: Phenytoin Sodium 100 MG Capsule PO SCH ×2 (08:59→14:09)
[2018-07-16] MEDS: CLORAZEPATE 3.75 MG PO SCH (08:59)
[2018-07-16] MEDS: Budesonide-Formoterol 160/4.5 MCG 6 GM Inhaler INH SCH (09:00)
[2018-07-16] MEDS: Enoxaparin Inj 80 MG/0.8 ML Syringe SQ SCH (09:45)
[2018-07-16 12:09] VITALS: RESP 18; TEMP 97.8; O2SAT 99
--- NOTE | 2018-07-16 14:07 | P.PNIM ---
Subjective Interval history: No acute distress today. Bilateral lower extremity swelling has improved. Currently patient is on Lovenox. Lovenox versus Eliquis is long- term anticoagulation, will discuss further with oncology. Physical Exam Vital signs: Last Vital Signs Temp 97.8 F 07/16/18 12:00 Pulse 52 L 07/16/18 12:00 Resp 18 07/16/18 12:00 BP 138/65 07/16/18 12:00 Pulse Ox 99 07/16/18 12:00 Intake & Output 07/14/18 07/15/18 07/16/18 07/17/18 06:59 06:59 06:59 06:59 Intake Total 1420 / 1420 1380 / 1380 960 / 960 Output Total 700 / 700 950 / 950 650 / 650 Balance 720 / 720 430 / 430 310 / 310 Weight 70 kg 70.2 kg 70.3 kg Narrative: GENERAL: NAD, A&Ox3 HEAD: Normocephalic. NECK: Supple, trachea midline. No lymphadenopathy. EYES: No scleral icterus. No injection or drainage. CARDIOVASCULAR: Regular rate and rhythm without murmurs, gallops, or rubs. RESPIRATORY: Breath sounds equal bilaterally. No accessory muscle use. GASTROINTESTINAL: Abdomen soft, non-tender, nondistended. MUSCULOSKELETAL: No cyanosis, or edema. SKIN: Warm and dry. NEURO: No focal neurological deficits. Results Labs CBC & Chem 7: 07/15/18 06:16 07/13/18 08:49 Assessment and Plan Plan 78 yers old male admitted secondary to acute bilateral lower extremity DVT and pulmonary emboli Acute PE bilateral DVT Lower extremity edema returning to baseline Lovenox versus Eliquis twice daily for long-term treatment Will discuss with oncology Oncology following Colon cancer Oncology following Seizure disorder No seizure activity Continue baseline treatment Hypertension Continue baseline treatment Follow blood pressures Adjust treatments as needed Continue beta-margot DVT prophylaxis Lovenox Progress Note: Quality VTE Deep Vein Thrombosis/Pulmonary Embolism Present on Admission: No
--- NOTE | 2018-07-16 14:32 | P.PNONC ---
Subjective Interval history: Patient ambulating in room. He complains of his feet feeling numb. When asked when this started he said "I thought only the bottoms were numb, but now it is my whole foot"he denies any numbness in his legs, thighs. Denies difficulty urinating. Continues to have bowel movements. Denies back pain. Reports edema in legs has improved. Objective Vital Signs/Intake & Output: Vital Signs 07/15/18 15:00 07/15/18 16:00 07/15/18 17:00 Temperature 97.9 F Pulse Rate 56 L 60 62 Respiratory Rate 20 Blood Pressure 119/63 Pulse Oximetry 94 L 07/15/18 18:00 07/15/18 19:00 07/15/18 20:00 Temperature 98.0 F Pulse Rate 57 L 55 L 55 L Respiratory Rate 18 Blood Pressure 135/65 Pulse Oximetry 99 07/15/18 21:00 07/15/18 22:00 07/15/18 23:00 Temperature Pulse Rate 57 L 58 L 52 L Respiratory Rate Blood Pressure Pulse Oximetry 07/16/18 00:00 07/16/18 01:00 07/16/18 02:00 Temperature 97.9 F Pulse Rate 53 L 49 L 51 L Respiratory Rate 16 Blood Pressure 119/60 Pulse Oximetry 98 07/16/18 03:00 07/16/18 04:00 07/16/18 05:00 Temperature 98.1 F Pulse Rate 57 L 57 L 57 L Respiratory Rate 20 Blood Pressure 129/60 Pulse Oximetry 99 07/16/18 06:00 07/16/18 07:00 07/16/18 08:00 Temperature 97.6 F Pulse Rate 59 L 56 L 61 Respiratory Rate 20 Blood Pressure 134/66 Pulse Oximetry 98 07/16/18 09:00 07/16/18 10:00 07/16/18 10:44 Temperature Pulse Rate 62 60 Respiratory Rate Blood Pressure Pulse Oximetry 98 07/16/18 11:00 07/16/18 12:00 Temperature 97.8 F Pulse Rate 49 L 52 L Respiratory Rate 18 Blood Pressure 138/65 Pulse Oximetry 99 Intake & Output 07/15/18 07/16/18 07/16/18 18:59 06:59 18:59 Intake Total 480 / 480 480 / 480 Output Total 650 / 650 Balance -170 / -170 480 / 480 Weight 70.3 kg Intake: Oral 480 / 480 480 / 480 Output: Urine 650 / 650 Other: # Voids 1 3 Date of Last Bowel Movement 07/14/18 07/14/18 07/16/18 # Bowel Movements 0 Result Diagrams: 07/15/18 06:16 07/13/18 08:49 Medications: Active Medications Generic Name Dose Route Start Last Admin Trade Name Freq PRN Reason Stop Dose Admin Hydrocodone Bitart/Acetaminophen 1 tab 07/12/18 19:13 07/13/18 15:45 [place] 5/325 PO 1 tab Q4H PRN Administration PAIN 6-10 Albuterol 1 ampul 07/12/18 19:12 07/14/18 16:03 Duoneb Neb (Prn) NEB 1 ampul Q4HR NEB PRN Administration SOB/WHEEZING Aspirin 81 mg 07/13/18 09:00 07/16/18 09:01 Aspirin Chew PO 81 mg DAILY MATHEW Administration Atenolol 50 mg 07/13/18 09:00 07/16/18 08:59 Tenormin PO 50 mg DAILY MATHEW Administration Budesonide/Formoterol Fumarate 2 puff 07/12/18 21:00 07/16/18 09:00 Symbicort 160/4.5 Mcg Inh INH 2 puff BID MATHEW Administration Fluticasone Propionate 1 spray 07/13/18 09:00 07/16/18 14:09 Flonase Nasal [place] EACH NARE 1 spray TID MATHEW Administration Multivitamins 1 tab 07/12/18 20:00 07/16/18 08:59 Theragran PO 1 tab DAILY MATHEW Administration Pantoprazole Sodium 40 mg 07/12/18 21:00 07/16/18 08:59 Protonix PO 40 mg BID MATHEW Administration Patient Own Narcotic 0 each 07/13/18 21:00 07/15/18 20:55 Med 1:Clorazepate 3 PO 1 each .75 Mg HS MATHEW Administration Patient Own Narcotic 0 each 07/14/18 09:00 07/16/18 08:59 Med 2:Clorazepate 3 PO 2 each .75 Mg DAILY MATHEW Administration Phenytoin Sodium 100 mg 07/13/18 09:00 07/16/18 14:09 Dilantin PO 100 mg TID MATHEW Administration Senna/Docusate Sodium 1 tab 07/12/18 21:00 07/16/18 08:59 [place]-Colace PO 1 tab BID MATHEW Administration Sodium Chloride 2 ml 07/12/18 21:00 07/16/18 09:01 Ns Flush IV.FLUSH 2 ml BID MATHEW Administration Zonisamide 100 mg 07/12/18 21:00 07/16/18 08:59 Zonegran PO 100 mg BID MATHEW Administration Objective Remarks: GENERAL: Well-nourished, well-developed elderly male patient, in no acute distress. SKIN: Warm and dry. HEAD: Normocephalic. EYES: No scleral icterus. No injection or drainage. NECK: Supple, trachea midline. CARDIOVASCULAR: Regular rate and rhythm without murmurs. RESPIRATORY: Breath sounds equal bilaterally. No accessory muscle use. GASTROINTESTINAL: Abdomen soft, non-tender, nondistended. EXTREMITIES: No cyanosis, or edema. DP and PT pulses present with doppler. MUSCULOSKELETAL: Adequate muscle tone. NEUROLOGICAL: No obvious focal deficit. Awake, alert, and oriented x3. PSYCHIATRIC: Appropriate mood and affect; insight and judgment normal. Assessment/Plan - Plan Recommendations: 1. Stage III colon cancer: will initiate adjuvant therapy in the outpatient setting. Patient has appointment scheduled in the outpatient clinic. 2. Bilateral DVTs, recommend lovenox on discharge for a few weeks. 3. Numbness to bilateral feet, pulses are present, normal color. He has normal strength bilaterally. Patient denies any leg numbness, thigh numbness, incontinence to urine or stool or back pain. Continue to monitor. 4. Pt cleared from an oncology standpoint for discharge. He has an appointment with Dr Davis on Sunday. Discussed with Dr Polanco, he will discharge him home on lovenox.
--- NOTE | 2018-07-16 15:10 | P.DS ---
DS: Providers Date of admission: 07/12/18 19:51 Primary care physician: [facility] Consults: 07/12/18 19:41 Consult to Oncology Routine Consulting Provider: Severiano Ahmadi Preferred [employer] Operator:: Krupa Davis Patient known to:: Krupa Davis Reason for Consultation: Colon CA CONSULT FOR AM Notified:: Service Spoke with:: YANDEL Date Notified:: 07/12/18 Time Notified:: 20:02 Ordering Provider: LEN Brief History from admission: This is a 78-year-old male with a PMH of HTN, this is a 78-year-old male with a PMH of HTN, Hyperlipidemia, Seizure Disorder and Colon CA who was referred to the ER for abnormal CT showing PE. Recent admit 05/30-06/07/18 w/ newly diagnosed Colon CA, s/p hemicolectomy by Dr. Sylvester on 06/03/18, s/p Port Placement, and following w/ Dr. Davis w/ plans for starting Chemo on Sunday. States he was sent for imaging today-believes it was a PET-CT, and was called by physician to come to ER for admission due to PE. No records available at this time, per report, pt noted to have bilateral PE. Pt currently without complaints, no chest pain or SOB. No h/o PE. Currently on Heparin gtt. DS: Summary Mr. Arcos is a 78-year-old male. He was admitted secondary to bilateral lower extremity DVT and pulmonary embolism. He responded well to Lovenox. Lovenox versus Eliquis at discharge is discussed with oncology. Lovenox is preferred as a treatment and patient will transition to an alternative treatment with his oncologist/protohistorian as an outpatient. Lower extremity swelling and pain has resolved. Medically stable and cleared for discharge today. Time Spent with Patient Total time spent providing and/or coordinating discharge services: Quality: VTE Deep Vein Thrombosis/Pulmonary Embolism Present on Admission: No Results Impressions ITS Impressions Venous Doppler Study 07/13/18 00:00 CONCLUSION: 1. Occlusive deep venous thrombus involving the right superficial femoral, popliteal and posterior tibial veins as well as the left popliteal and posterior tibial veins. Discharge Plan Discharge Disposition Patient Disposition: W/Home Health Service Discharge Condition Condition: Stable Discharge Order Discharge Orders: Discharge Order (Routine); Ordered 07/16/18 Ordered By: Daniel Polanco Discharge Details Anticipated Discharge Date: 07/16/18 Physicians Team Primary Care Provider: [facility] Attending Provider: Daniel Polanco Other Providers: Severiano Ahmadi ; Krupa Davis Rxs /Orders / Referrals /Forms Prescriptions: New enoxaparin [Lovenox] 80 mg/0.8 mL syringe 70 mg SQ Q12H Qty: 8 RF: 6 Continue phenytoin sodium extended [Dilantin Extended] 100 mg Capsule 100 mg PO TID RF: 0 aspirin 81 mg Tablet,Chewable 81 mg PO DAILY RF: 0 multivitamin Tablet 1 tab PO QAM RF: 0 clorazepate dipotassium 3.75 mg Tablet 3.75 mg PO HS RF: 0 ferrous sulfate [Iron (ferrous sulfate)] 325 mg (65 mg iron) Tablet 325 mg PO HS RF: 0 atenolol 50 mg Tablet 50 mg PO DAILY RF: 0 cholecalciferol (vitamin D3) [Vitamin D3] 1,000 unit Capsule 1,000 unit PO DAILY RF: 0 fluticasone 50 mcg/actuation [place],Suspension 50 mcg Intranasal TID RF: 0 zonisamide 100 mg Capsule 100 mg PO BID RF: 0 loratadine 10 mg Tablet 10 mg PO DAILY RF: 0 hydrocodone-acetaminophen 5-325 mg Tablet 2 tab PO Q4H PRN (Reason: Pain) Qty: 40 RF: 0 pantoprazole [Protonix] 40 mg Tablet,Delayed Release (Dr/Ec) 40 mg PO BID Qty: 60 RF: 0 clorazepate dipotassium 7.5 mg Tablet 7.5 mg PO DAILY NEB RF: 0 Discontinued ibuprofen [IBU] 600 mg Tablet 600 mg PO TID PRN (Reason: Pain) RF: 0 Referrals: [facility] [Primary Care Provider] - See Instructions Discharge Interventions Interventions: Discharge Planning - Case Management Last Done: 07/15/18 11:25 Status ED Status: Left Department
[2018-07-16] MEDS ORDERED: Enoxaparin Inj 80 MG/0.8 ML Syringe SQ ONE (15:23)
[2018-07-16 16:36] VITALS: PULSE 63
[2018-07-16 16:38] VITALS: BP 117/60
== END 2018-07-16 16:36 | disposition home or self-care (01) ==
LOC: NEPE 16:08 → NEDA 19:51 → HCIS 23:39
PROVIDERS: ADMIT Hospitalist; ATTEND Hospitalist